=== PATIENT | male | born 1955 | race Caucasian/White ===

== ENCOUNTER 2020-10-16 15:42 | Inpatient (IN) | payer MEDICARE, OTHER ==
[~2020-10-16] VITALS: Ht 221 cm; Wt 129.7 kg
[~2020-10-16 15:42] MED LIST: METO10TA81 PO; PANT40TA3 PO
[2020-10-16 16:16] LABS: BASO # 0.1 x10^3/uL (0.0-0.2); BASO % 2 % (0-3); EOS # 0.2 x10^3/uL (0.0-0.7); EOS % 2 % (0-3); HEMATOCRIT 44.5 % (39.0-53.0); LYMPH # 1.5 x10^3/uL (1.0-4.8); LYMPH % 18 % (24-48); MEAN CORPUSCULAR HEMOGLOBIN 33 pg (25-35); MEAN CORPUSCULAR HGB CONC 34 g/dL (31-37); MEAN CORPUSCULAR VOLUME 99 fL (79-100); MONO # 0.5 x10^3/uL (0.0-1.1); MONO % 7 % (0-9); NEUT # 5.8 x10^3uL (1.8-7.7); NEUT % 72 % (31-73); PLATELET COUNT 200 x10^3/uL (140-400); RED BLOOD COUNT 4.49 x10^6/uL (4.30-5.70); RED CELL DISTRIBUTION WIDTH 13.2 % (11.5-14.5); WHITE BLOOD COUNT 8.1 x10^3/uL (4.0-11.0)
[2020-10-16 16:25] LABS: ALBUMIN 3.3 g/dL (3.4-5.0); ALBUMIN/GLOBULIN RATIO 1.1 (1.0-1.7); CALCIUM 8.9 mg/dL (8.5-10.1); POTASSIUM 4.1 mmol/L (3.5-5.1); TOTAL BILIRUBIN 1.2 mg/dL (0.2-1.0); TOTAL PROTEIN 6.4 g/dL (6.4-8.2)
[2020-10-16 16:28] LABS: BILIRUBIN,URINE NEG (NEG); CLARITY,URINE CLOUDY; COLOR,URINE YELLOW; GLUCOSE,URINE NEG (NEG); NITRITE,URINE POS (NEG)
[2020-10-16 16:34] LABS: BACTERIA,URINE MANY /HPF (0-FEW); WBC,URINE TNTC /HPF (0-4)
[2020-10-16 16:35] LABS: SQUAMOUS EPITHELIAL CELL,UR MOD /LPF
[2020-10-16] MEDS ORDERED: cefTRIAXone SODIUM 1 GM VIAL ONE (17:05)
[2020-10-16] MEDS ORDERED: CEPH500T PO (17:12)
--- NOTE | 2020-10-16 17:16 | PHYS DOC ---
Past History Past Medical History: Anemia, Anxiety, Depression, GERD, GI Bleed, High Cholesterol, Hypothyroid, Other Additional Past Medical Histor: barretts esophagus Past Surgical History: Tonsillectomy, Other Additional Past Surgical Histo: toe amputation Alcohol Use: None Drug Use: None Adult General Chief Complaint Chief Complaint: MEDICAL CLEARANCE [facility] HPI Patient is a 65-year-old male who presents to the emergency room with altered mental status. Patient has been living in a nursing facility for the last year. According to report he has had increased altered mental status with combativeness. They have had a hard time getting him to shower, eat, care for h imself. They called the behavioral health unit here at [facility] who is willing to accept the patient for behavioral health assessment. Patient is here for medical clearance. He has no complaints. He does not know why he is here. Review of Systems Review of Systems Complete ROS is negative unless otherwise documented in HPI Current Medications Current Medications Current Medications Medications (Trade) Dose Ordered Sig/Lizette Start Time Stop Time Status Last Admin Dose Admin Ceftriaxone Sodium 1 gm/ Sodium Chloride 50 ml @ 100 mls/hr 1X ONCE 10/16/20 17:00 10/16/20 17:29 Ceftriaxone Sodium (Rocephin) 1 gm STK-MED ONCE 10/16/20 17:05 10/16/20 17:05 DC Allergies Allergies Allergies Coded Allergies Type Severity Reaction Last Updated Verified lactose Allergy Unknown Diarrhea 10/16/20 Yes Physical Exam Physical Exam General: Awake, alert, NAD. Well Nourished, well hydrated. Cooperative HEENT: Atraumatic, EOMI, PERRL, airway patent, moist oral mucosa Neck: Supple, trachea midline Respiratory: CTA bilaterally, normal effort, no wheezing/crackles CV: RRR, no murmur, cap refill <2 GI: Soft, nondistended, nontender, no masses MSK: No obvious deformities Skin: Warm, dry, intact Neuro: A&O x3, speech NL, sensory and motor grossly intact, no focal deficits, confused Psych: Normal affect, normal mood, not suicidal or homicidal Current Patient Data Vital Signs Vital Signs Date Time Temp Pulse Resp B/P (MAP) Pulse Ox O2 Delivery O2 Flow Rate FiO2 10/16/20 15:54 97.8 71 16 147/78 (101) 97 Room Air Lab Results Laboratory Tests Test 10/16/20 15:55 10/16/20 16:04 White Blood Count 8.1 x10^3/uL (4.0-11.0) Red Blood Count 4.49 x10^6/uL (4.30-5.70) Hemoglobin 15.0 g/dL (13.0-17.5) Hematocrit 44.5 % (39.0-53.0) Mean Corpuscular Volume 99 fL (79-100) Mean Corpuscular Hemoglobin 33 pg (25-35) Mean Corpuscular Hemoglobin Concent 34 g/dL (31-37) Red Cell Distribution Width 13.2 % (11.5-14.5) Platelet Count 200 x10^3/uL (140-400) Neutrophils (%) (Auto) 72 % (31-73) Lymphocytes (%) (Auto) 18 % (24-48) L Monocytes (%) (Auto) 7 % (0-9) Eosinophils (%) (Auto) 2 % (0-3) Basophils (%) (Auto) 2 % (0-3) Neutrophils # (Auto) 5.8 x10^3uL (1.8-7.7) Lymphocytes # (Auto) 1.5 x10^3/uL (1.0-4.8) Monocytes # (Auto) 0.5 x10^3/uL (0.0-1.1) Eosinophils # (Auto) 0.2 x10^3/uL (0.0-0.7) Basophils # (Auto) 0.1 x10^3/uL (0.0-0.2) Sodium Level 144 mmol/L (136-145) Potassium Level 4.1 mmol/L (3.5-5.1) Chloride Level 107 mmol/L (98-107) Carbon Dioxide Level 28 mmol/L (21-32) Anion Gap 9 (6-14) Blood Urea Nitrogen 21 mg/dL (8-26) Creatinine 1.0 mg/dL (0.7-1.3) Estimated GFR (Cockcroft-Gault) 75.0 BUN/Creatinine Ratio 21 (6-20) H Glucose Level 84 mg/dL (70-99) Calcium Level 8.9 mg/dL (8.5-10.1) Total Bilirubin 1.2 mg/dL (0.2-1.0) H Aspartate Amino Transferase (AST) 14 U/L (15-37) L Alanine Aminotransferase (ALT) 17 U/L (16-63) Alkaline Phosphatase 115 U/L (46-116) Total Protein 6.4 g/dL (6.4-8.2) Albumin 3.3 g/dL (3.4-5.0) L Albumin/Globulin Ratio 1.1 (1.0-1.7) Urine Collection Type Unknown Urine Color Yellow Urine Clarity Cloudy Urine pH 7.0 Urine Specific [place] 1.025 Urine Protein 100 mg/dl (NEG-TRACE) Urine Glucose (UA) Neg mg/dL (NEG) Urine Ketones (Stick) >=160 mg/dL (NEG) Urine Blood Large (NEG) Urine Nitrite Pos (NEG) Urine Bilirubin Neg (NEG) Urine Urobilinogen Dipstick 2.0 mg/dL (0.2 mg/dL) Urine Leukocyte Esterase Small (NEG) Urine RBC 11-20 /HPF (0-2) Urine WBC Tntc /HPF (0-4) Urine Squamous Epithelial Cells Mod /LPF Urine Bacteria Many /HPF (0-FEW) Urine Mucus Slight /LPF EKG EKG [] Radiology/Procedures Radiology/Procedures [] Heart Score C/O Chest Pain: N/A Risk Factors: Risk Factors: DM, Current or recent (<one month) smoker, HTN, HLP, family history of CAD, obesity. Risk Scores: Risk Factors: DM, Current or recent (<one month) smoker, HTN, HLP, family history of CAD, obesity. Course & Med Decision Making Course & Med Decision Making Pertinent Labs and Imaging studies reviewed. (See chart for details) Patient is 65-year-old male who presents to the emergency room for medical clearance to go to [facility]. Patient has no complaints. Medical clearing labs were ordered and patient does have a significant UTI. He was given Rocephin here in the emergency room and will need to be placed on Keflex. Patient will be discharged to the [facility] unit. He is medically clear at this time. He does not have any signs of sepsis at this time. Dragon Disclaimer Dragon Disclaimer This electronic medical record was generated, in whole or in part, using a voice recognition dictation system. Departure Departure: Impression: Primary Impression: Altered mental status Additional Impression: UTI (urinary tract infection) Disposition: [address] [place] [address] Condition: STABLE Referrals: PCP,NO (PCP) Scripts Cephalexin (CEPHALEXIN) 500 Mg Tablet 1 TAB PO BID for UTI, #20 TAB Prov: EDEN MEDLEY MD 10/16/20 Problem Qualifiers EDEN MEDLEY MD Oct 16, 2020 17:16
[2020-10-16] MEDS ORDERED: PANT40TA6 PO (17:54)
[2020-10-16] MEDS ORDERED: BUSP10TA PO (17:54)
[2020-10-16] MEDS ORDERED: SERT100T PO (17:54)
[2020-10-16] MEDS ORDERED: CALC200T3 PO (17:54)
[2020-10-16] MEDS ORDERED: DIVA250T4 PO (17:54)
[2020-10-16] MEDS ORDERED: RISP1TAB88 PO ×2 (17:54)
[2020-10-16] MEDS ORDERED: [UNRECOGNIZED DRUG - CODE] PO (17:54)
[2020-10-16] MEDS ORDERED: LOPE2TAB27 PO (17:54)
[2020-10-16] MEDS ORDERED: DICL100G28 TP (17:54)
[2020-10-16] MEDS ORDERED: MAGN400T5 PO (17:54)
[2020-10-16] MEDS ORDERED: ACET325T21 PO (17:54)
--- NOTE | 2020-10-16 18:00 | NUR ---
Admission Note with Justification for Admission to [facility] Patient admitted to [facility] for protective oversight for emergency stabilization of acute psychiatric crisis. Pt admitted from: SNF Mode of arrival: EMS Accompanied By: [facility] Staff Precipitating behaviors that initiated intake and admission: throwing self on floor, lacks motivation, physically & verbally aggressive towards staff, refuses cares & lays in urine & feces, agitated, threw walker at staff, yells at peers Description of failure of out patient attempts at stabilization in previous setting list behavior and medication trials: med changes, redirection, counseling, UA Behaviors and assessment findings upon admission: Pt pleasant and cooperative with assessment. He is A&Ox3. He denies ever roopa Plan: Admit for protective oversight for adjustment and stabilization of medications, behaviors and mood. Intense treatment regimen including groups, medication adjustments, therapy, consistent regimen for ADL's, self care, and sleep hygiene. Daily monitoring by Inpatient staff, Psychiatry, and Medical Physician. Addendum: 10/16/20 at 1839 by CESAR SMALL RN He denies ever doing any of the reported behaviors that prompted admission. Pt is frustrated about having to stay here overnight and is questioning if he will be able to leave tomorrow. He c/o pain in his right knee from a fall he had "3 days ago". Pt has a couple open sores on his R hip and has many bruises in various healing stages all over his body. Pt was left to eat his supper in his room and is currently resting quietly in bed. Will continue to monitor.
[2020-10-16 18:20] VITALS: BP 137/75
[2020-10-16] MEDS ORDERED: CALCIUM CARBONATE 500 MG TAB.CHEW PO PRN (19:00)
[2020-10-16] MEDS ORDERED: LOPERAMIDE 2 MG CAPSULE PO PRN (19:00)
[2020-10-16] MEDS ORDERED: ACETAMINOPHEN 325 MG TABLET PO PRN (19:45)
[2020-10-16] MEDS ORDERED: MAGNESIUM HYDROXIDE 2,400 MG/30 ML ORAL.SUSP. PO PRN (19:45)
[2020-10-16] MEDS ORDERED: METHYL SALICYLATE/MENTHOL TOPICAL OINTMENT 57GM TUBE. TP PRN (19:45)
[2020-10-16 20:41] LABS: MAGNESIUM 2.2 mg/dL (1.8-2.4)
--- NOTE | 2020-10-16 20:46 | EKG ---
[address] [address] Test Date: 2020-10-16 Test Time: 16:12:20 Pat Name: RAYO TERESA Department: Room: [address] [place] [address] Gender: M Wood Furniture Assembler: LORETTA : 1955 Requested By: EDEN MEDLEY Order Number: [id number] Reading MD: Norman Cerrato Measurements Intervals [place] Rate: 65 P: 12 W[place]: 170 QRS: -44 QRSD: 102 T: 66 QT: 416 QTc: 433 Interpretive Statements SINUS RHYTHM ABNORMAL LEFT AXIS DEVIATION LEFT ANTERIOR FASCICULAR BLOCK ABNORMAL ECG Electronically Signed On 10-24-2020 13:03:16 CDT by Norman Cerrato
[2020-10-16 20:50] LABS: VAL ACID 74 mcg/mL (50-100)
[2020-10-16] MEDS: busPIRone 10 MG TABLET. PO SCH (20:54)
[2020-10-16] MEDS: PANTOPRAZOLE 40 MG TABLET. PO SCH (20:55)
[2020-10-16] MEDS: CEPHALEXIN 250 MG CAPSULE PO SCH (20:55)
[2020-10-16] MEDS: risperiDONE 1 MG TABLET. PO SCH (20:55)
[2020-10-16] MEDS: DIVALPROEX SODIUM 250 MG TABLET.DR. PO SCH (20:55)
[2020-10-16] MEDS: DICLOFENAC SODIUM 1% TOPICAL GEL 100GM TUBE. TP SCH (20:55)
[2020-10-16] MEDS: METOCLOPRAMIDE 10 MG TABLET PO SCH (20:55)
--- NOTE | 2020-10-16 22:05 | PDOC ---
Exam Note: Dandy Note: Please also refer to the separate dictated note~for this date of service dictated separately.~Patient seen individually. Discussed the patient with Nursing staff reviewed the chart.~Reviewed interim history and current functioning. Reviewed vital signs,~Labs/ Radiology~and current medications noted below. Continue current treatment with the changes noted in the dictated addendum note Assessment: Vital Signs/I&O: Vital Signs Date Time Temp Pulse Resp B/P (MAP) Pulse Ox O2 Delivery O2 Flow Rate FiO2 10/16/20 18:20 97.9 73 18 137/75 (95) 97 10/16/20 15:54 Room Air Labs: Laboratory Tests Test 10/16/20 15:55 10/16/20 16:04 10/16/20 20:07 White Blood Count 8.1 x10^3/uL (4.0-11.0) Red Blood Count 4.49 x10^6/uL (4.30-5.70) Hemoglobin 15.0 g/dL (13.0-17.5) Hematocrit 44.5 % (39.0-53.0) Mean Corpuscular Volume 99 fL (79-100) Mean Corpuscular Hemoglobin 33 pg (25-35) Mean Corpuscular Hemoglobin Concent 34 g/dL (31-37) Red Cell Distribution Width 13.2 % (11.5-14.5) Platelet Count 200 x10^3/uL (140-400) Neutrophils (%) (Auto) 72 % (31-73) Lymphocytes (%) (Auto) 18 % (24-48) L Monocytes (%) (Auto) 7 % (0-9) Eosinophils (%) (Auto) 2 % (0-3) Basophils (%) (Auto) 2 % (0-3) Neutrophils # (Auto) 5.8 x10^3uL (1.8-7.7) Lymphocytes # (Auto) 1.5 x10^3/uL (1.0-4.8) Monocytes # (Auto) 0.5 x10^3/uL (0.0-1.1) Eosinophils # (Auto) 0.2 x10^3/uL (0.0-0.7) Basophils # (Auto) 0.1 x10^3/uL (0.0-0.2) Sodium Level 144 mmol/L (136-145) Potassium Level 4.1 mmol/L (3.5-5.1) Chloride Level 107 mmol/L (98-107) Carbon Dioxide Level 28 mmol/L (21-32) Anion Gap 9 (6-14) Blood Urea Nitrogen 21 mg/dL (8-26) Creatinine 1.0 mg/dL (0.7-1.3) Estimated GFR (Cockcroft-Gault) 75.0 BUN/Creatinine Ratio 21 (6-20) H Glucose Level 84 mg/dL (70-99) Calcium Level 8.9 mg/dL (8.5-10.1) Total Bilirubin 1.2 mg/dL (0.2-1.0) H Aspartate Amino Transferase (AST) 14 U/L (15-37) L Alanine Aminotransferase (ALT) 17 U/L (16-63) Alkaline Phosphatase 115 U/L (46-116) Total Protein 6.4 g/dL (6.4-8.2) Albumin 3.3 g/dL (3.4-5.0) L Albumin/Globulin Ratio 1.1 (1.0-1.7) Urine Collection Type Unknown Urine Color Yellow Urine Clarity Cloudy Urine pH 7.0 Urine Specific [place] 1.025 Urine Protein 100 mg/dl (NEG-TRACE) Urine Glucose (UA) Neg mg/dL (NEG) Urine Ketones (Stick) >=160 mg/dL (NEG) Urine Blood Large (NEG) Urine Nitrite Pos (NEG) Urine Bilirubin Neg (NEG) Urine Urobilinogen Dipstick 2.0 mg/dL (0.2 mg/dL) Urine Leukocyte Esterase Small (NEG) Urine RBC 11-20 /HPF (0-2) Urine WBC Tntc /HPF (0-4) Urine Squamous Epithelial Cells Mod /LPF Urine Bacteria Many /HPF (0-FEW) Urine Mucus Slight /LPF D-Dimer (Tammie) 0.81 mg/L (0.00-0.50) H Magnesium Level 2.2 mg/dL (1.8-2.4) Valproic Acid Level 74 mcg/mL (50-100) Valproic Acid Last Dose Date 10/16/20 Valproic Acid Last Dose Time 1200 Current Medications: Meds: Current Medications Medications (Trade) Dose Ordered Sig/Lizette Route PRN Reason Start Time Stop Time Status Last Admin Dose Admin Ceftriaxone Sodium 1 gm/ Sodium Chloride 50 ml @ 100 mls/hr 1X ONCE IV 10/16/20 17:00 10/16/20 17:29 DC 10/16/20 17:00 Buspirone HCl (Buspar) 10 mg TID PO 10/16/20 21:00 10/16/20 20:54 Divalproex Sodium (Depakote) 250 mg TID PO 10/16/20 21:00 10/16/20 20:55 Metoclopramide HCl (Reglan) 10 mg QIDACHS PO 10/16/20 21:00 10/16/20 20:55 Pantoprazole Sodium (Protonix) 40 mg QHS PO 10/16/20 21:00 10/16/20 20:55 Risperidone (RisperDAL) 1 mg QHS PO 10/16/20 21:00 10/16/20 20:55 Cephalexin HCl (Keflex) 500 mg BID PO 10/16/20 21:00 10/26/20 09:01 10/16/20 20:55 I have reviewed the current psychotropics carefully including drug interactions. Risk benefit ratio favors no change other than as noted in my dictated progress note. Diagnosis: Problems: (1) Schizoaffective disorder, chronic condition with acute exacerbation VICTORINA BAR MD Oct 16, 2020 22:05
--- NOTE | 2020-10-16 23:18 | NUR ---
Pt withdrawn to his room, lying in bed when approached. Pt calm with a flat affect, answering questions appropriately. Pt denies behaviors that precipitated admission stating, "that didn't happen". Pt cooperative with assessment/cares and compliant with medications administered whole. No agitation or aggression noted thus far this shift.
[2020-10-17 05:45] VITALS: BP 130/67
[2020-10-17] MEDS ORDERED: PANTOPRAZOLE 40 MG TABLET. PO SCH (09:00)
[2020-10-17] MEDS: CEPHALEXIN 250 MG CAPSULE PO SCH ×2 (09:10→20:36)
[2020-10-17] MEDS: DIVALPROEX SODIUM 250 MG TABLET.DR. PO SCH ×3 (09:10→20:36)
[2020-10-17] MEDS: METOCLOPRAMIDE 10 MG TABLET PO SCH ×4 (09:10→20:36)
[2020-10-17] MEDS: busPIRone 10 MG TABLET. PO SCH ×3 (09:11→20:36)
[2020-10-17] MEDS: risperiDONE 1 MG TABLET. PO SCH ×2 (09:11→20:36)
[2020-10-17] MEDS: SERTRALINE 100 MG TABLET. PO SCH (09:11)
[2020-10-17] MEDS: LACTASE 3,000 UNIT TABLET PO SCH ×3 (09:11→17:31)
[2020-10-17] MEDS: DICLOFENAC SODIUM 1% TOPICAL GEL 100GM TUBE. TP SCH ×2 (09:11→20:39)
--- NOTE | 2020-10-17 09:59 | NUR ---
Pt has been present and visible on the unit. He is compliant with medications taken whole and is cooperative with assessment. After breakfast he immediately retired to bed. Pt is able to be appropriate with his interactions with others and has demonstrated such appropriateness. During assessment pt displayed moments of boundary crossing and intrusiveness; stating that this nurse "looks good" today and asking this nurse if I'm . Pt briefly spoke about a female staff member named "Julianna" and asked this nurse if I knew who she was, I replied that I did not. Pt denies the circumstances regarding his admission and is adamant that they "never happened." He reports 8/10 pain in the R knee, scheduled muscle rub cream applied. Plan of care continues, will pass to next shift. .
[2020-10-17] MEDS: MAGNESIUM OXIDE 400 MG TABLET PO SCH (12:00)
[2020-10-17 14:12] LABS: THYROXINE 7.8 ug/dL (4.5-12.0)
[2020-10-17 16:09] VITALS: BP 134/76
--- NOTE | 2020-10-17 17:23 | RAD ---
Right knee 3 views. HISTORY: Fall with pain 3 views were taken of the right knee. A fracture is not identified. There is a joint effusion. IMPRESSION: 1. No acute fracture noted in the right knee. 2. Small joint effusion. Electronically signed by: Amadeo Craft MD (10/17/2020 5:21 PM) [id number]
--- NOTE | 2020-10-17 17:25 | RAD ---
Sacrum and coccyx HISTORY: Pain after a fall 3 views were taken of the sacrum and coccyx. Sacrum appears intact. Coccyx is in normal alignment on the lateral view. Definite sacral fracture not identified. IMPRESSION: 1. No fracture noted in the sacrum or coccyx. Electronically signed by: Amadeo Craft MD (10/17/2020 5:22 PM) [id number]
[2020-10-17 17:52] LABS: THYROID STIM HORMONE (TSH) 2.237 uIU/mL (0.358-3.740)
[2020-10-17] MEDS: LACTOBACILLUS RHAMNOSUS GG 1 CAPSULE. PO SCH (20:36)
[2020-10-17] MEDS: PANTOPRAZOLE 40 MG TABLET. PO SCH (20:36)
--- NOTE | 2020-10-17 22:36 | NUR ---
Pt withdrawn to room, lying in bed when approached. Pt calm, interactive, and appropriate during encounter. Pt cooperative with assessment and compliant with medications administered whole. No verbal or physical aggression noted thus far this shift.
--- NOTE | 2020-10-17 22:41 | PDOC ---
Exam Note: Dandy Note: Please also refer to the separate dictated note~for this date of service dictated separately.~Patient seen individually. Discussed the patient with Nursing staff reviewed the chart.~Reviewed interim history and current functioning. Reviewed vital signs,~Labs/ Radiology~and current medications noted below. Continue current treatment with the changes noted in the dictated addendum note Assessment: Vital Signs/I&O: Vital Signs Date Time Temp Pulse Resp B/P (MAP) Pulse Ox O2 Delivery O2 Flow Rate FiO2 10/17/20 16:09 97.3 83 18 134/76 (95) 97 Room Air I & O 10/16/20 10/16/20 10/17/20 15:00 23:00 07:00 Intake Total 240 ml Balance 240 ml Current Medications: Meds: Current Medications Medications (Trade) Dose Ordered Sig/Lizette Route PRN Reason Start Time Stop Time Status Last Admin Dose Admin Ceftriaxone Sodium 1 gm/ Sodium Chloride 50 ml @ 100 mls/hr 1X ONCE IV 10/16/20 17:00 10/16/20 17:29 DC 10/16/20 17:00 Ceftriaxone Sodium (Rocephin) 1 gm STK-MED ONCE .ROUTE 10/16/20 17:05 10/16/20 17:05 DC Acetaminophen (Tylenol) 650 mg PRN Q4HRS PRN PO MILD PAIN / TEMP > 100.3'F 10/16/20 19:00 Buspirone HCl (Buspar) 10 mg TID PO 10/16/20 21:00 10/17/20 20:36 Calcium Carbonate/ Glycine (Tums) 500 mg PRN Q8HRS PRN PO DYSPEPSIA, 1ST CHOICE 10/16/20 19:00 Diclofenac Sodium (Voltaren) 1 stan BID TP 10/16/20 21:00 10/17/20 20:39 Divalproex Sodium (Depakote) 250 mg TID PO 10/16/20 21:00 10/17/20 20:36 Lactase (Lactaid) 3,000 unit TIDBFRMEAL PO 10/17/20 07:30 10/17/20 17:31 Magnesium Oxide (Magnesium Oxide) 400 mg NOON PO 10/17/20 12:00 10/17/20 12:00 Metoclopramide HCl (Reglan) 10 mg QIDACHS PO 10/16/20 21:00 10/17/20 20:36 Pantoprazole Sodium (Protonix) 40 mg QHS PO 10/16/20 21:00 10/17/20 20:36 Pantoprazole Sodium (Protonix) 40 mg DAILY PO 10/17/20 09:00 UNV Risperidone (RisperDAL) 1 mg QHS PO 10/16/20 21:00 10/17/20 20:36 Risperidone (RisperDAL) 1.5 mg DAILY PO 10/17/20 09:00 10/17/20 09:11 Sertraline HCl (Zoloft) 200 mg DAILY PO 10/17/20 09:00 10/17/20 09:11 Cephalexin HCl (Keflex) 500 mg BID PO 10/16/20 21:00 10/26/20 09:01 10/17/20 20:36 Loperamide HCl (Imodium) 2 mg PRN Q8HRS PRN PO DIARRHEA 10/16/20 19:00 Acetaminophen (Tylenol) 650 mg PRN Q6HRS PRN PO MILD PAIN / TEMP > 100.3'F 10/16/20 19:45 UNV Multi-Ingredient Ointment (Analgesic [place]) 1 stan PRN QID PRN TP MUSCLE PAIN 10/16/20 19:45 Al Hydroxide/Mg Hydroxide (Mylanta Plus Xs) 15 ml PRN AFTMEALHC PRN PO DYSPEPSIA, 2ND CHOICE 10/16/20 19:45 Magnesium Hydroxide (Milk Of Magnesia) 2,400 mg PRN QHS PRN PO CONSTIPATION 10/16/20 19:45 Lactobacillus Rhamnosus (Culturelle) 1 cap BID PO 10/17/20 21:00 10/17/20 20:36 Current Medications Medications (Trade) Dose Ordered Sig/Lizette Route PRN Reason Start Time Stop Time Status Last Admin Dose Admin Lactase (Lactaid) 3,000 unit TIDBFRMEAL PO 10/17/20 07:30 10/17/20 17:31 Magnesium Oxide (Magnesium Oxide) 400 mg NOON PO 10/17/20 12:00 10/17/20 12:00 Risperidone (RisperDAL) 1.5 mg DAILY PO 10/17/20 09:00 10/17/20 09:11 Sertraline HCl (Zoloft) 200 mg DAILY PO 10/17/20 09:00 10/17/20 09:11 Lactobacillus Rhamnosus (Culturelle) 1 cap BID PO 10/17/20 21:00 10/17/20 20:36 I have reviewed the current psychotropics carefully including drug interactions. Risk benefit ratio favors no change other than as noted in my dictated progress note. Diagnosis: Problems: (1) Schizoaffective disorder, chronic condition with acute exacerbation VICTORINA BAR MD Oct 17, 2020 22:41
[2020-10-18 00:08] LABS: HEMOGLOBIN A1C 4.9 % (4.8-5.6)
[2020-10-18 06:09] VITALS: BP 122/64
--- NOTE | 2020-10-18 07:00 | NUR ---
Wound/Ostomy Care Wound Type/Assessment: wound consult for right hip wound, pt has stage II PU to right hip with pink/red periwound. Pt also has unstageable PU to plantar aspect of left 2nd toe. Photo found in chart of dorsal toe showing redness and swelling but wound not shown in photo. Pictured, measured and dressed wound. Treatment Recommendations/Plan: xeroform and foam to right hip, recommend to change every 3 days and PRN. Left 2nd toe- iodoflex and gauze, change every other day and PRN. Additional dressings left in pt photo chart. Education provided: PU prevention, recommend to stay off right hip, pt will need reinforcement of teaching due to mental status. Offloading surface/device: TQ2H, limit walking on toe Recommended Referrals/Tests: recommend xray of left 2nd toe and arterial study of left leg Discharge Recommendations for dressings: continue as above noted
--- NOTE | 2020-10-18 08:00 | NUR ---
Voice message left with [facility], requesting an update about records request from 10/16/20.
[2020-10-18] MEDS: DIVALPROEX SODIUM 250 MG TABLET.DR. PO SCH ×3 (08:42→21:42)
[2020-10-18] MEDS: LACTASE 3,000 UNIT TABLET PO SCH ×3 (08:42→17:09)
[2020-10-18] MEDS: risperiDONE 1 MG TABLET. PO SCH ×2 (08:43→21:41)
[2020-10-18] MEDS: SERTRALINE 100 MG TABLET. PO SCH (08:43)
[2020-10-18] MEDS: CEPHALEXIN 250 MG CAPSULE PO SCH ×2 (08:43→21:41)
[2020-10-18] MEDS: LACTOBACILLUS RHAMNOSUS GG 1 CAPSULE. PO SCH ×2 (08:43→21:42)
[2020-10-18] MEDS: busPIRone 10 MG TABLET. PO SCH ×3 (08:43→21:41)
[2020-10-18] MEDS: METOCLOPRAMIDE 10 MG TABLET PO SCH ×4 (08:43→21:42)
[2020-10-18] MEDS: DICLOFENAC SODIUM 1% TOPICAL GEL 100GM TUBE. TP SCH ×2 (08:44→21:42)
--- NOTE | 2020-10-18 09:37 | HP ---
ADMIT DATE: 10/17/2020 PSYCHIATRIC ADMISSION HISTORY/EVALUATION This is a late entry date of service 10/17/2020 covers elements not covered in my initial note 10/17/2020. The patient was seen on telehealth visit for this evaluation on 10/17/2020 per COVID protocol options. Previously discussed with Trista Coe, palliative care coordinator and nursing staff and discussed with ROHAN Carbajal on 10/17/2020, reviewed current and past records. IDENTIFYING DATA: The patient is a 65-year-old male referred to us from [facility] on account of an acute exacerbation of his schizoaffective disorder, bipolar type. Reportedly, patient has been throwing himself on the floor, physically and verbally aggressive towards staff, refusing cares. He has been lying in urine and feces. He has been agitated, threw his walker at the staff, yelling at peers, withdrawn, angry, paranoid, aggressive smearing feces. The patient denies minimizes all of this, states he has no problems whatsoever. CHIEF COMPLAINT: "There is nothing wrong with me. I've no psychiatric diagnosis. Never." HISTORY OF PRESENT ILLNESS: Reportedly, patient has a history of schizoaffective disorder, bipolar type. He has been residing at the above facility, recently getting more psychotic, paranoid, and agitated as above and unmanageable at the facility. Behaviors have been deemed dangerous, has failed outpatient psychiatric interventions resulting in this referral. He does have a history of mood swings, but generally cognitively he has been intact. PAST PSYCHIATRIC HISTORY: As above. The patient has failed recent inpatient psychiatric hospitalization at [facility] and we will request those records. MEDICAL HISTORY: Hypothyroidism, knee pain, anemia, history of GI bleed, Garza's esophagus with dysplasia, GERD, lactose intolerance, muscular atrophy, peripheral vascular disease, history of "other paraphilia," history of sexual dysfunction, status post pneumonia, history of acute cholecystitis, hyperlipidemia, polycythemia, delayed gastric emptying, transaminitis. ACCU-CHEKS: Not applicable. CODE STATUS: Full code. ALLERGIES: No drug allergies, but he has LACTOSE INTOLERANCE. DIET: No diary, but otherwise regular. UA 10/16/2020 was positive, started on Keflex in the Emergency Department prior to this admission. CURRENT PSYCHOTROPICS: Depakote ER 250 mg t.i.d., Risperdal 1.5 mg daily and 1 mg at bedtime, Zoloft 200 mg a day, BuSpar 10 mg t.i.d., valproic acid level 629 and 74 therapeutic. FAMILY HISTORY: Noncontributory. SOCIAL HISTORY: No history of alcohol, drug abuse, physical, sexual or elder abuse, but there is questionable history of being a perpetrator and history of paraphilia. We will obtain further information during this hospitalization. ASSETS: Supportive living at the [facility]. REACTION TO HOSPITALIZATION: The patient accepting reluctantly. REVIEW OF SYSTEMS: No CV, , pulmonary, eye, ENT system symptoms on review. MENTAL STATUS EXAM: The patient is reasonably oriented. Speech coherent, rapid. He is quite aggressive, paranoid, suspicious, easily agitated, stating he had no psychiatric reasons or diagnosis to be here. Attention span short. Language function intact. No active suicidal or homicidal ideation. Intellect average. Insight limited. Judgment marginal. LABORATORY DATA: Reviewed. IMPRESSION: Schizoaffective disorder, bipolar type, mixed with psychotic features; anxiety disorder, unspecified; impulse control disorder, unspecified; urinary tract infection, rest as above. PLAN: Admit to Geropsychiatry Unit at [facility]. I will see the patient individually from a psychiatric standpoint, medical followup, Dr. Angel/Dr. Gamez. Continue current psychotropics. Treat the UTI. Consider increasing Risperdal, reducing the Zoloft and using Wellbutrin as an alternate antidepressant, specifically given his schizoaffective disorder, bipolar type diagnosis. We will make further determinations post baseline assessment in resolution of UTI. ESTIMATED LENGTH OF STAY: 10-12 days. DISPOSITION: Plans back to [facility] when stable. MARIBELL/PHYLLIS DR: Shannan TID: [id number]
--- NOTE | 2020-10-18 11:00 | CONS ---
DATE OF CONSULTATION: 10/17/2020 REASON FOR CONSULTATION: Medical management. HISTORY OF PRESENT ILLNESS: The patient is a 65-year-old male patient, [facility] on account of throwing himself on the floor, physically and verbally aggressive towards staff, refuses cares, lying in urine and feces, agitated to ____ staff, yelling at peers, lacks motivation, smearing feces, all this in a background of schizoaffective disorder with acute exacerbation. PAST MEDICAL HISTORY: Significant for hypothyroidism, knee pain, anemia, GI bleed, Garza's esophagus, gastroesophageal reflux disease, lactose intolerance, muscle wasting and atrophy, peripheral vascular disease, paraphilia, sexual dysfunction, pneumonia, hyperlipidemia, polycythemia, delayed gastric emptying and transaminitis. PAST SURGICAL HISTORY: Significant for cholecystectomy. ALLERGIES: HE IS ALLERGIC TO DAIRY, LACTOSE INTOLERANCE, BUT NO KNOWN DRUG ALLERGIES. MEDICATIONS: He is currently on following medications: He is currently on lactobacillus rhamnosus 1 capsule twice a day, magnesium oxide 400 mg once a day, sertraline 200 mg once a day, risperidone 1.5 mg daily, Lactase 3000 units 3 times a day with meals, cephalexin 500 mg twice a day, risperidone 1 mg at bedtime, Protonix 40 mg at bedtime, metoclopramide 10 mg 4 times a day before meals and bedtime, divalproex sodium 250 mg 3 times a day, diclofenac sodium 1 application twice a day topically, buspirone 10 mg 3 times a day, magnesium hydroxide for milk of magnesia 30 mL p.o. daily p.r.n. for constipation, Mylanta 15 mL after meals and as needed, loperamide 2 mg every 8 hours as needed, calcium carbonate, lysine 500 mg every 8 hours, acetaminophen 650 mg every 4 hours as needed. FAMILY HISTORY: Noncontributory. SOCIAL HISTORY: On questioning him today, his main complaint is pain in his right knee joint. It is in a fixed flexion contracture. He apparently fell about 3 days ago. He also complaining of pain in his tailbone. PHYSICAL EXAMINATION: GENERAL: When I examined him, he looked well and was clearly in no apparent respiratory distress. There was no pallor, jaundice, cyanosis, or thyromegaly. No jugular venous distention. No lower limb edema. VITAL SIGNS: His heart rate was 83, blood pressure is 134/76, temperature was 97.3, respiratory rate was 18 and oxygen saturation was 97%. HEAD, EYES, EARS, NOSE, AND THROAT: Showed normocephalic and atraumatic. NECK: Supple. HEART: Showed normal first and second heart sounds. No gallop or murmur. CHEST: Clear to auscultation. No crepitation or rhonchi. ABDOMEN: Distended, soft, nontender. NEUROLOGIC: He is awake, alert, responding appropriately, appears intact. He moves extremities without difficulty, ambulates without assist, but is mostly wheelchair bound. LABORATORY DATA: This morning showed a white cell count of 8100, hemoglobin 15, hematocrit 44, MCV 99 and platelet count 200,000 with a manual differential showed 72% polymorphs, 18% lymphocytes, 7% monocytes. His D-dimer was 0.81 mg. His chemistry showed a serum sodium 144, potassium 4.1, chloride 107, bicarbonate 28, anion gap of 9, BUN 21, creatinine 1, estimated GFR was 75 mL per minute. His glucose was 84, calcium was 8.9, magnesium 2.2. Total bilirubin slightly elevated; however, AST, ALT, alkaline phosphatase were normal. Total protein 6.4, albumin 3.3. His total T4 and total T3 are all within normal range. Urinalysis showed that he has too numerous to count wbc's, was positive for nitrite. There was large amount of leukocyte esterase. The urine was cloudy with small amount of protein, negative for glucose, large amount of ketones, large amount of blood. Toxic screen showed that the valproic acid level was 74 mcg per mL, which is well within therapeutic range of 15 to 100. ASSESSMENT: In summary, this is a 65-year-old male patient, [facility], who [facility] on account of throwing self the floor, physically and verbally aggressive towards staff, refuses cares, lying in his urine and feces, agitated to ____ staff, yelling at peers, lacks motivation, smearing feces, his main complaint is pain in his right knee joint that is tender to touch, but there is no evidence of redness or swelling, it is in a fixed flexion contracture. PLAN: My plan is to obviously continue with oral Keflex for his UTI, and await the result of the culture and sensitivity and arrange for an x-ray of the right knee joint and if there is no fracture and is receptive to steroid injection, I will arrange it for tomorrow. Thank you, Dr. Saldana, for allowing me to participate in the care of this patient. RICHARD/VALENCIA/ARELY DR: RICHARD/marquita TID: [id number]
--- NOTE | 2020-10-18 11:55 | NUR ---
ACTIVITY THERAPY ASSESSMENT Completed based on observation and interview with Pt. and Pt's Discovery Guide. Pt. was laying in bed but sat up to answer questions. 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 Pt. goes by "Pérez," is over 7 foot tall, and enjoys [employer] trains, TV (M.A.S.H), movies (Blazing Saddles), music (Advantagene), and Reeses, Cheese Puffs. He belongs to [facility] and reports not having any friends he keeps in touch with and has one sister who keeps in touch with him. Pt. needed some repeated questions and tend to speak in slower, drawn out way. He asked how long he was going to be here and if he could get a TV for his room. He was encouraged to keep communicating needs and informed about [employer] devices for potential entertainment options. Pt. has an amputated toe that has developed a pressure ulcer and staff are monitoring closely. Initial goal aimed to increase engagement: Pt. will participate in at least three individual or Activity Therapy groups before discharge.
--- NOTE | 2020-10-18 11:58 | NUR ---
WEEKLY ACTIVITY THERAPY NOTE Date of Admission: 10/16/20 Date of AT Assessment: TBD Precipitating behaviors that initiated intake and admission: throwing self on floor, lacks motivation, physically & verbally aggressive towards staff, refuses cares & lays in urine & feces, agitated, threw walker at staff, yells at peers Goal aimed: TBD Initial Goal: TBD Weekly progress towards goal: NA Group participation level: new patient Weekly highlights: arrived on unit Behaviors observed: TBD Plan: meet/ assess Pt Beneficial adaptations: TBD
[2020-10-18] MEDS: MAGNESIUM OXIDE 400 MG TABLET PO SCH (12:00)
--- NOTE | 2020-10-18 12:47 | NUR ---
Pt has spent most of the day in bed and not out on the unit. His interactions with staff have been appropriate. He is compliant with whole medications. He denies SI/HI/VH/AH/delusions/pain when asked. He has no complaints or concerns at this time. Wound Care Nurse saw him this morning. He has had no behavioral problems so far this shift. Plan of care continues, will pass to next shift.
[2020-10-18] MEDS: CHOLECALCIFEROL (VITAMIN D3) 50,000 UNIT CAPSULE PO SCH (15:45)
[2020-10-18] MEDS: PANTOPRAZOLE 40 MG TABLET. PO SCH (21:42)
--- NOTE | 2020-10-18 22:04 | PDOC ---
Exam Note: Dandy Note: Please also refer to the separate dictated note~for this date of service dictated separately.~Patient seen individually. Discussed the patient with Nursing staff reviewed the chart.~Reviewed interim history and current functioning. Reviewed vital signs,~Labs/ Radiology~and current medications noted below. Continue current treatment with the changes noted in the dictated addendum note Assessment: Vital Signs/I&O: Vital Signs Date Time Temp Pulse Resp B/P (MAP) Pulse Ox O2 Delivery O2 Flow Rate FiO2 10/18/20 06:09 97.2 70 16 122/64 (83) 96 Room Air I & O 10/17/20 10/17/20 10/18/20 15:00 23:00 07:00 Intake Total 600 ml 120 ml Balance 600 ml 120 ml Current Medications: Meds: Current Medications Medications (Trade) Dose Ordered Sig/Lizette Route PRN Reason Start Time Stop Time Status Last Admin Dose Admin Ceftriaxone Sodium 1 gm/ Sodium Chloride 50 ml @ 100 mls/hr 1X ONCE IV 10/16/20 17:00 10/16/20 17:29 DC 10/16/20 17:00 Ceftriaxone Sodium (Rocephin) 1 gm STK-MED ONCE .ROUTE 10/16/20 17:05 10/16/20 17:05 DC Acetaminophen (Tylenol) 650 mg PRN Q4HRS PRN PO MILD PAIN / TEMP > 100.3'F 10/16/20 19:00 Buspirone HCl (Buspar) 10 mg TID PO 10/16/20 21:00 10/18/20 21:41 Calcium Carbonate/ Glycine (Tums) 500 mg PRN Q8HRS PRN PO DYSPEPSIA, 1ST CHOICE 10/16/20 19:00 Diclofenac Sodium (Voltaren) 1 stan BID TP 10/16/20 21:00 10/18/20 21:42 Divalproex Sodium (Depakote) 250 mg TID PO 10/16/20 21:00 10/18/20 21:42 Lactase (Lactaid) 3,000 unit TIDBFRMEAL PO 10/17/20 07:30 10/18/20 17:09 Magnesium Oxide (Magnesium Oxide) 400 mg NOON PO 10/17/20 12:00 10/18/20 12:00 Metoclopramide HCl (Reglan) 10 mg QIDACHS PO 10/16/20 21:00 10/18/20 21:42 Pantoprazole Sodium (Protonix) 40 mg QHS PO 10/16/20 21:00 10/18/20 21:42 Pantoprazole Sodium (Protonix) 40 mg DAILY PO 10/17/20 09:00 UNV Risperidone (RisperDAL) 1 mg QHS PO 10/16/20 21:00 10/18/20 11:47 DC 10/17/20 20:36 Risperidone (RisperDAL) 1.5 mg DAILY PO 10/17/20 09:00 10/18/20 08:43 Sertraline HCl (Zoloft) 200 mg DAILY PO 10/17/20 09:00 10/18/20 08:43 Cephalexin HCl (Keflex) 500 mg BID PO 10/16/20 21:00 10/26/20 09:01 10/18/20 21:41 Loperamide HCl (Imodium) 2 mg PRN Q8HRS PRN PO DIARRHEA 10/16/20 19:00 Acetaminophen (Tylenol) 650 mg PRN Q6HRS PRN PO MILD PAIN / TEMP > 100.3'F 10/16/20 19:45 UNV Multi-Ingredient Ointment (Analgesic [place]) 1 stan PRN QID PRN TP MUSCLE PAIN 10/16/20 19:45 Al Hydroxide/Mg Hydroxide (Mylanta Plus Xs) 15 ml PRN AFTMEALHC PRN PO DYSPEPSIA, 2ND CHOICE 10/16/20 19:45 Magnesium Hydroxide (Milk Of Magnesia) 2,400 mg PRN QHS PRN PO CONSTIPATION 10/16/20 19:45 Lactobacillus Rhamnosus (Culturelle) 1 cap BID PO 10/17/20 21:00 10/18/20 21:42 Risperidone (RisperDAL) 1.5 mg QHS PO 10/18/20 21:00 10/18/20 21:41 Vitamin D (Vitamin D3) 50,000 unit WEEKLY PO 10/18/20 15:45 10/18/20 15:45 Current Medications Medications (Trade) Dose Ordered Sig/Lizette Route PRN Reason Start Time Stop Time Status Last Admin Dose Admin Risperidone (RisperDAL) 1.5 mg QHS PO 10/18/20 21:00 10/18/20 21:41 Vitamin D (Vitamin D3) 50,000 unit WEEKLY PO 10/18/20 15:45 10/18/20 15:45 I have reviewed the current psychotropics carefully including drug interactions. Risk benefit ratio favors no change other than as noted in my dictated progress note. Diagnosis: Problems: (1) Impulse control disorder, unspecified (2) Anxiety disorder, unspecified (3) Bipolar disorder, current episode mixed, severe, with psychotic features (4) Schizoaffective disorder, bipolar type VICTORINA BAR MD Oct 18, 2020 22:04
--- NOTE | 2020-10-18 23:57 | NUR ---
Pt withdrawn to room, lying in bed when approached. Pt calm but sarcastic with his responses. Pt cooperative with assessment and compliant with medications administered whole. No agitation or aggression noted thus far this shift.
[2020-10-19 06:00] VITALS: BP 124/66
[2020-10-19] MEDS: CEPHALEXIN 250 MG CAPSULE PO SCH (08:07)
[2020-10-19] MEDS: LACTASE 3,000 UNIT TABLET PO SCH ×3 (08:07→16:30)
[2020-10-19] MEDS: busPIRone 10 MG TABLET. PO SCH ×3 (08:07→20:37)
[2020-10-19] MEDS: risperiDONE 1 MG TABLET. PO SCH ×2 (08:07→20:37)
[2020-10-19] MEDS: DIVALPROEX SODIUM 250 MG TABLET.DR. PO SCH ×3 (08:08→20:37)
[2020-10-19] MEDS: LACTOBACILLUS RHAMNOSUS GG 1 CAPSULE. PO SCH ×2 (08:08→20:37)
[2020-10-19] MEDS: SERTRALINE 100 MG TABLET. PO SCH (08:08)
[2020-10-19] MEDS: METOCLOPRAMIDE 10 MG TABLET PO SCH ×4 (08:08→20:41)
[2020-10-19] MEDS: DICLOFENAC SODIUM 1% TOPICAL GEL 100GM TUBE. TP SCH ×2 (08:10→20:38)
--- NOTE | 2020-10-19 09:20 | NUR ---
Pt has been present and visible on the unit. His interactions with others have been appropriate so far. He c/o 5/10 pain in the R knee and tailbone. Scheduled Voltaren gel applied to the knee. He is compliant with whole medications, he has been consuming fluids and appetite appears adequate. Absent of SI/HI/VH/AH/delusions. He is A&Ox3 which is consistent to his baseline. Plan of care continues, will pass to next shift.
--- NOTE | 2020-10-19 10:13 | NUR ---
PSYCHOSOCIAL ASSESSMENT ADMISSION DATE: 10/16/20 CONTACT INFORMATION: DPOA/Guardian Contact Name: Sister/DPOA-Carolina Sanchez Contact Address: [place] Contact Phone #: [phone] ETHNIC ORIGIN: REASONS FOR ADMISSION: Aggressive Agitated Angry Combative Depressed Isolating Poor impulse control ADDITIONAL ADMISSION COMMENTS: Per intake record, throwing self on floor, lacks motivation, physically and verbally aggressive toward staff, refuses cares and lays in urine/feces, agitated, threw walker at staff, yells at peers. REASON FOR ADMISSION IN PATIENT/FAMILY'S OWN WORDS: Per pt, "I don't know why I'm here." Per DPOA/Sister, Carolina, pt will deny the reasoning for his admission. "He never really used to lie that I was aware of, but he just doesn't accept ownership." Carolina also reports that in pt's history he went through a pretty rough divorce because he had found out that he couldn't have children and his apparently really wanted children. Consequently, they ended up and he seemed to slip into depression and eventually lost his job. "I don't think he really ever recovered from that." Carolina,also, describes him as becoming a loner. PATIENT/FAMILY EXPECTATIONS FOR ADMISSION: Adjustments in medications to help with agitation, anger, and depression. Also, for him to be cooperative with his cares and increase motivation to be able to do some of his own self cares. LIVING SITUATION: Patient lives with: [facility] Other living arrangements: [facility] Contact Name: Adan Contact Address: [address] [place] [id number] Contact Phone #: [phone] Contact Fax #: [phone] FAMILY RELATIONS: Marital Status: # of Marriages: 1 # of Children: 0 [facility] Family Support: Concerned Cooperative Involved in DC Planning Additional Comments r/t Family: Pt has been and according to his sister when he found out that he was sterile and could not have kids, the marriage went astray and he eventually lost his job presumably d/t depression and maybe never recovering from it. He at that time ended up losing his job and moving in with his parents. His mother passed first and then his father passed in 2003 when he was living with him. Pt's father left him a large amount of money that he ended up blowing. He apparently would get involved and caught up in scams and lose his money. He eventually lost every thing and had to be placed on medicaid and eventually residential care. SIGNIFICANT PSYCHIATRIC/MEDICAL HISTORY: Psychiatric/Treatment History: Pt reports being at [facility] two to three months ago for about 14 days. Pertinent Family History: None known HISTORICAL DATA: Childhood Environment: Little discipline [place] Nurturing Supportive Childhood Environment Additional Comments: Pt was raised by both of his parents and according to pt's only sibling/sister/DPOA, Carolina, she believes that their parents were too old when they had Raul. She elaborates by stating that pt was only [age] years old when she left the home to go off to college. Carolina reports that the parents spoiled Raul and he got everything he ever wanted or needed. Carolina, further, describes that the mother, Michelle, was a nurse and the father, Allan, was a meredith. Carolina does not believe that he was given adequate discipline or supervision when being raised because parents were older and they both worked. Trauma History: None Additional Comments: None reported. 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 service: Jehovah'S Witness background: Grew up [facility] [employer] Sexual orientation: Heterosexual Educational Level: Pt reports that he graduated high school from [place], [place] and he completed [employer] school in [place], [place]. Past/Present Interests/Hobbies: Model trains,photography, traveling, TV-MASH, Movies-Blazing Saddles, country music Monthly income: Medicare/Medicaid Person handling finances: DPOA/Facility Do you have a history of legal problems: No Cultural considerations: None SOCIAL RELATIONSHIPS-CURRENT/PAST: Psychiatrist: None PCP: Dr. Cortez Lopez Counselor/Therapist: None Veterans' Administration: None Support Group: None Dial Mounter/Switchboard Clerk: None Other relationships: None STRENGTHS & WEAKNESSES: Patient's strengths: Good family support Stable living arrange Education level Approachable Other patient strengths: Patient's weaknesses: Lack of resources Poor relationships Poor social skills Health problems Physically Aggressive Other patient weaknesses: PRELIMINARY PLAN OF TREATMENT: Preliminary plan: Dec. Symp. Depression Decrease Isolation Promote Coping Skill Improved Social Skills Medication Stabilization Monitor Med Effects Control abnormal behavior Dec. Outbursts Dec. Aggression Other preliminary treatment comments: While at [facility], pt will be encouraged to attend group and recreational therapy groups. He will report any feelings of depression or agitation and he will be encouraged to come out of his room more often. DISCHARGE PLANNING: Discharge planning/disposition: Additional discharge needs identified: None noted ADDITIONAL INFORMATION: Other Pertinent Data: Information was obtained from pt sister/DPOA, Carolina, as well as pt himself. Pt lacks insight into his mental health needs and lack motivation. Carolina is aware of pt admission and is available for further information if needed.
--- NOTE | 2020-10-19 10:35 | TX PLAN ---
Interdisciplinary Tx Plan Admission Information Oct 16, 2020 at 18:00 Legal Status (on Admission): Voluntary DPOA/Guardian Name: Sister/DPOA-Carolina Sanchez Contact Other Contact Name: Adan Other Contact [phone] Verified Code Status: Full Code Allergies: Coded Allergies: lactose (Verified Allergy, Unknown, Diarrhea, 10/16/20) WA reports extreme GI upset, explosive stools if patient gets any lactose. Diagnoses Primary Diagnosis: (1) Impulse control disorder, unspecified (2) Anxiety disorder, unspecified (3) Bipolar disorder, current episode mixed, severe, with psychotic features (4) Schizoaffective disorder, bipolar type Reasons for Admission: Aggressive, Agitated, Depressed, Angry, Combative, Isolating, Poor impulse control Problem in Patient's Words: Per pt, "I don't know why I'm here." Per DPOA/Sister, Carolina, pt will deny the reasoning for his admission. He never really used to lie that I was aware of, but he just doesn't accept ownership. Carolina also reports that in pt's history he went through a pretty rough divorce because he had found out that he couldn't have children and his apparently really wanted children. Consequently, they ended up and he seemed to slip into depression and eventually lost his job. "I don't think he really ever recovered from that." Carolina describes him as becoming a loner. Additional Admission Comments: Per intake record, throwing self on floor, lacks motivation, physically and verbally aggressive toward staff, refuses cares and lays in urine/feces, agitated, threw walker at staff, yells at peers. Problems Active Problems: Agitated, isolates, demonstrates depression, flat affect, denies symptoms/lacks insight into mental health needs Inactive Problems: combative, aggressive Pt Strengths/Limitations Ability for [place]: Poor Cognitive Functioning/Ability: Fair Communication Skills/Ability: Fair Financial Resources: Poor Insight/Judgement: Poor Intellectual Ability: Fair Physical Health: Poor Social Skills: Fair Stability in Family: Fair Stability in School/Work: Fair Verbal Skills: Fair Discharge Criteria Discharge Criteria: Adequate arrangements @DC, Adequate self-care, Verbal commit med comply, Improved mood/thought Other Discharge Comments: None noted Preliminary Discharge Plan Preliminary DC Plan: Current Living Arrange. Special Precautions Special Precautions: Agitation/Assault Fall Risk: Moderate Initial D/C Plan Plan is for pt to return to his facility at [facility] Identified Discharge Needs: None noted Currently Utilized Resources Currently Utilized Resources/P: [facility] Kathleen or Cyn Referrals Community Resources: None noted at this time. Identified Problems/Hx/Goals Objectives/Short-Term Goals Short Term Goals: Control abnormal behavior, Dec. Aggression, Decrease Isolation, Dec. Outbursts, Dec. Symp. Depression, Improved Social Skills, Medication Stabilization, Monitor Med Effects, Promote Coping Skill Short Term Goals in Patient's: To demonstrate less depression,agitation, aggression, and be more compliant with self-cares along with respectful to others. Interventions/Frequency Staff Interventions/Frequency&: Psychiatry to assess pt three times per week for medication management. Nursing to assess behaviors, monitor medications, and complete 15 minute checks daily. Social work to see pt at least two times weekly to aid in return to placement. Activities to encourage pt to participate in group activities daily. 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 Education: Pt reports that he graduated high school from [place], [place] and he completed [employer] school in [place], [place]. Community Follow-up PCP Community Provider/Family Inpu: Pt sister/DPALDAIR aware of pt hospitalization and is available for further information as needed. Treatment Plan Explained Patient/Medical Accounts Receivable Specialist had this treatment plan explained to him/her as indicated by the signature below and has been given the opportunity to ask questions and make suggestions: Date: Patient/Medical Accounts Receivable Specialist Signature: Additional Comments Treatment plan was completed on 10/18/20 and entered on 10/19/20. ROSE RUANO Oct 19, 2020 10:35
[2020-10-19] MEDS: MAGNESIUM OXIDE 400 MG TABLET PO SCH (12:00)
--- NOTE | 2020-10-19 14:16 | RAD ---
EXAM: 3 phase nuclear bone scan. HISTORY: Left second toe pain, redness and swelling. TECHNIQUE: Following the intravenous injection of 20 mCi of Tc 99m labeled methylene diphosphonate (M DP), whole body imaging was performed. COMPARISON: None. FINDINGS: There is increased radiotracer activity involving the left second toe on flow, blood pool a nd delayed images. There is also a lesser degree of increased radiotracer activity on flow and blood pool images involving the distal left first metatarsal or base of the left first phalanx status post amputation. There are multiple scattered focal areas of radiotracer elsewhere within both feet an ank le on delayed images, predominantly involving the left forefoot and bilateral hindfeet. IMPRESSION: 1. Abnormal radiotracer activity involving the left second toe consistent with osteomyelitis. There i s no prior study for correlation Correlate with radiographic or MRI findings. 2. Abnormal radiotracer activity involving the left first metatarsal head or base of the left phalanx status post amputation. This may be due to tubal ligation surgery or additional osteomyelitis. Corre late radiographic or MRI findings. 3. Multiple scattered focal areas of abnormal radiotracer activity within both feet and ankles on del ayed images. The distribution of these findings favors extensive degenerative or neuropathic changes. Correlate with radiographic or MRI findings. Electronically signed by: Kay Jamison MD (10/19/2020 2:13 PM) [id number]
[2020-10-19] MEDS: PANTOPRAZOLE 40 MG TABLET. PO SCH (20:37)
[2020-10-19] MEDS: SMZ/TMP 800/160MG TABLET. PO SCH (20:41)
[2020-10-19] MEDS: DOXYCYCLINE HYCLATE 100 MG TABLET PO SCH (20:41)
--- NOTE | 2020-10-19 22:29 | PDOC ---
Exam Note: Dandy Note: This note is a late entry for 10/18/2020 covers elements not covered in my initial note. Subjective: The patient was reviewed on telehealth rounds in the morning of 10/18/2020 as an option during the COVID-19 pandemic period for a treatment team meeting with Trista Perez, Lisa Calzada (social science instructor), Tiffany, activity therapy and Lianne MADRIGAL, discussed and reviewed the chart. We discussed the patients diagnoses, progress, current psychotropics, reviewed drug interactions, risk-benefit ratio of current psychotropics at some length. He slept 6-3/4 hours previous night. He has a sister who is significantly older than him, now retired and living in [place]. Reportedly the patient was youngest in his family and was quite spoilt by his parents. The father had left him significant amount of money which the patient worked through and used up. 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 He has significant mood swings and psychotic symptoms intermittently since then. We will get his past psychiatric records from [facility]. He was also residing at [facility]. I met with him on telehealth rounds in the evening. He complains of pain in the knee and coccyx area. We will defer to Dr. Angel. He has pressure ulcers on the bottom of his toe. Review of Systems: No CV, , pulmonary, eye, ENT system symptoms on review. Mental Status Exam: The patient is reasonably oriented. Speech is coherent. Abstraction fair. Computation impaired. Language function intact. Attention span short. Mood and affect labile, withdrawn and at other times no active suicidal or homicidal ideation. Laboratory Data: Reviewed. Impression: Schizoaffective disorder bipolar type mixed with psychotic features. Anxiety disorder unspecified. Impulse control disorder unspecified. Plan: Continue Depakote ER current dosage, level therapeutic at 74. Increase Risperdal from 1.5 mg a.m. and 1 mg h.s. to 1.5 mg twice a day. Maintain Zoloft, BuSpar unchanged. Adjust further as clinically indicated. Assessment: Vital Signs/I&O: Vital Signs Date Time Temp Pulse Resp B/P (MAP) Pulse Ox O2 Delivery O2 Flow Rate FiO2 10/19/20 06:00 97.2 67 18 124/66 (85) 95 Room Air I & O 10/18/20 10/18/20 10/19/20 15:00 23:00 07:00 Intake Total 120 ml 240 ml Balance 120 ml 240 ml Current Medications: Meds: Current Medications Medications (Trade) Dose Ordered Sig/Lizette Route PRN Reason Start Time Stop Time Status Last Admin Dose Admin Ceftriaxone Sodium 1 gm/ Sodium Chloride 50 ml @ 100 mls/hr 1X ONCE IV 10/16/20 17:00 10/16/20 17:29 DC 10/16/20 17:00 Ceftriaxone Sodium (Rocephin) 1 gm STK-MED ONCE .ROUTE 10/16/20 17:05 10/16/20 17:05 DC Acetaminophen (Tylenol) 650 mg PRN Q4HRS PRN PO MILD PAIN / TEMP > 100.3'F 10/16/20 19:00 Buspirone HCl (Buspar) 10 mg TID PO 10/16/20 21:00 10/19/20 20:37 Calcium Carbonate/ Glycine (Tums) 500 mg PRN Q8HRS PRN PO DYSPEPSIA, 1ST CHOICE 10/16/20 19:00 Diclofenac Sodium (Voltaren) 1 stan BID TP 10/16/20 21:00 10/19/20 20:38 Divalproex Sodium (Depakote) 250 mg TID PO 10/16/20 21:00 10/19/20 20:37 Lactase (Lactaid) 3,000 unit TIDBFRMEAL PO 10/17/20 07:30 10/19/20 16:30 Magnesium Oxide (Magnesium Oxide) 400 mg NOON PO 10/17/20 12:00 10/19/20 12:00 Metoclopramide HCl (Reglan) 10 mg QIDACHS PO 10/16/20 21:00 10/19/20 20:41 Pantoprazole Sodium (Protonix) 40 mg QHS PO 10/16/20 21:00 10/19/20 20:37 Pantoprazole Sodium (Protonix) 40 mg DAILY PO 10/17/20 09:00 UNV Risperidone (RisperDAL) 1 mg QHS PO 10/16/20 21:00 10/18/20 11:47 DC 10/17/20 20:36 Risperidone (RisperDAL) 1.5 mg DAILY PO 10/17/20 09:00 10/19/20 08:07 Sertraline HCl (Zoloft) 200 mg DAILY PO 10/17/20 09:00 10/19/20 08:08 Cephalexin HCl (Keflex) 500 mg BID PO 10/16/20 21:00 10/19/20 16:10 DC 10/19/20 08:07 Loperamide HCl (Imodium) 2 mg PRN Q8HRS PRN PO DIARRHEA 10/16/20 19:00 Acetaminophen (Tylenol) 650 mg PRN Q6HRS PRN PO MILD PAIN / TEMP > 100.3'F 10/16/20 19:45 UNV Multi-Ingredient Ointment (Analgesic [place]) 1 stan PRN QID PRN TP MUSCLE PAIN 10/16/20 19:45 Al Hydroxide/Mg Hydroxide (Mylanta Plus Xs) 15 ml PRN AFTMEALHC PRN PO DYSPEPSIA, 2ND CHOICE 10/16/20 19:45 Magnesium Hydroxide (Milk Of Magnesia) 2,400 mg PRN QHS PRN PO CONSTIPATION 10/16/20 19:45 Lactobacillus Rhamnosus (Culturelle) 1 cap BID PO 10/17/20 21:00 10/19/20 20:37 Risperidone (RisperDAL) 1.5 mg QHS PO 10/18/20 21:00 10/19/20 20:37 Vitamin D (Vitamin D3) 50,000 unit WEEKLY PO 10/18/20 15:45 10/18/20 15:45 Doxycycline Hyclate (Vibra-Tab) 100 mg BID PO 10/19/20 21:00 10/29/20 22:00 10/19/20 20:41 Trimethoprim/ Sulfamethoxazole (Bactrim Ds) 1 tab BID PO 10/19/20 21:00 10/29/20 22:00 10/19/20 20:41 Current Medications Medications (Trade) Dose Ordered Sig/Lizette Route PRN Reason Start Time Stop Time Status Last Admin Dose Admin Doxycycline Hyclate (Vibra-Tab) 100 mg BID PO 10/19/20 21:00 10/29/20 22:00 10/19/20 20:41 Trimethoprim/ Sulfamethoxazole (Bactrim Ds) 1 tab BID PO 10/19/20 21:00 10/29/20 22:00 10/19/20 20:41 I have reviewed the current psychotropics carefully including drug interactions. Risk benefit ratio favors no change other than as noted in my dictated progress note. Diagnosis: Problems: (1) Schizoaffective disorder, chronic condition with acute exacerbation (2) Schizoaffective disorder, bipolar type (3) Impulse control disorder, unspecified (4) Anxiety disorder, unspecified (5) Bipolar disorder, current episode mixed, severe, with psychotic features VICTORINA BAR MD Oct 19, 2020 22:29
--- NOTE | 2020-10-19 22:51 | PDOC ---
Exam Note: Dandy Note: Please also refer to the separate dictated note~for this date of service dictated separately.~Patient seen individually. Discussed the patient with Nursing staff reviewed the chart.~Reviewed interim history and current functioning. Reviewed vital signs,~Labs/ Radiology~and current medications noted below. Continue current treatment with the changes noted in the dictated addendum note Assessment: Vital Signs/I&O: Vital Signs Date Time Temp Pulse Resp B/P (MAP) Pulse Ox O2 Delivery O2 Flow Rate FiO2 10/19/20 06:00 97.2 67 18 124/66 (85) 95 Room Air I & O 10/18/20 10/18/20 10/19/20 15:00 23:00 07:00 Intake Total 120 ml 240 ml Balance 120 ml 240 ml Current Medications: Meds: Current Medications Medications (Trade) Dose Ordered Sig/Lizette Route PRN Reason Start Time Stop Time Status Last Admin Dose Admin Doxycycline Hyclate (Vibra-Tab) 100 mg BID PO 10/19/20 21:00 10/29/20 22:00 10/19/20 20:41 Trimethoprim/ Sulfamethoxazole (Bactrim Ds) 1 tab BID PO 10/19/20 21:00 10/29/20 22:00 10/19/20 20:41 I have reviewed the current psychotropics carefully including drug interactions. Risk benefit ratio favors no change other than as noted in my dictated progress note. Diagnosis: Problems: (1) Schizoaffective disorder, chronic condition with acute exacerbation (2) Schizoaffective disorder, bipolar type (3) Impulse control disorder, unspecified (4) Anxiety disorder, unspecified (5) Bipolar disorder, current episode mixed, severe, with psychotic features VICTORINA BAR MD Oct 19, 2020 22:51
--- NOTE | 2020-10-19 23:59 | NUR ---
Patient is in his room on assumption of care, awake in bed. He is flat, pleasant. Compliant with assessments and medications whole. No agitation. Patient denies any pain or discomfort when asked. He appears to be sleeping comfortably at present time. Will continue to monitor.
[2020-10-20 06:02] VITALS: BP 97/56
[2020-10-20] MEDS: SERTRALINE 100 MG TABLET. PO SCH (08:50)
[2020-10-20] MEDS: busPIRone 10 MG TABLET. PO SCH ×3 (08:50→20:16)
[2020-10-20] MEDS: risperiDONE 1 MG TABLET. PO SCH ×2 (08:50→20:17)
[2020-10-20] MEDS: LACTASE 3,000 UNIT TABLET PO SCH ×3 (08:50→16:50)
[2020-10-20] MEDS: DOXYCYCLINE HYCLATE 100 MG TABLET PO SCH ×2 (08:50→20:16)
[2020-10-20] MEDS: DIVALPROEX SODIUM 250 MG TABLET.DR. PO SCH ×3 (08:50→20:16)
[2020-10-20] MEDS: METOCLOPRAMIDE 10 MG TABLET PO SCH ×4 (08:50→20:17)
[2020-10-20] MEDS: SMZ/TMP 800/160MG TABLET. PO SCH ×2 (08:50→20:16)
[2020-10-20] MEDS: LACTOBACILLUS RHAMNOSUS GG 1 CAPSULE. PO SCH ×2 (08:50→20:16)
[2020-10-20] MEDS: DICLOFENAC SODIUM 1% TOPICAL GEL 100GM TUBE. TP SCH ×2 (08:53→20:17)
[2020-10-20] MEDS: MAGNESIUM OXIDE 400 MG TABLET PO SCH (12:00)
--- NOTE | 2020-10-20 13:03 | NUR ---
Nursing note: Patient in bed room for morning medications & assessment, took pills whole. He denies SI/HI/VH/AH/AH/delusions/pain/discomfort at this time. He self propels in wheel chair. Patient is alert & oriented He is calm and compliant. He is flat and isolative to room other than for meals, does not interact with peers or groups. He is currently in his bed. Plan of care continues, will continue to monitor.
[2020-10-20 15:41] VITALS: BP 114/71
[2020-10-20] MEDS: PANTOPRAZOLE 40 MG TABLET. PO SCH (20:16)
--- NOTE | 2020-10-20 22:30 | PDOC ---
Exam Note: Dandy Note: Please also refer to the separate dictated note~for this date of service dictated separately.~Patient seen individually. Discussed the patient with Nursing staff reviewed the chart.~Reviewed interim history and current functioning. Reviewed vital signs,~Labs/ Radiology~and current medications noted below. Continue current treatment with the changes noted in the dictated addendum note Assessment: Vital Signs/I&O: Vital Signs Date Time Temp Pulse Resp B/P (MAP) Pulse Ox O2 Delivery O2 Flow Rate FiO2 10/20/20 15:41 97.6 75 20 114/71 (85) 99 10/20/20 06:02 Room Air I & O 10/19/20 10/19/20 10/20/20 14:59 22:59 06:59 Intake Total 1060 ml 360 ml Balance 1060 ml 360 ml Current Medications: I have reviewed the current psychotropics carefully including drug interactions. Risk benefit ratio favors no change other than as noted in my dictated progress note. Diagnosis: Problems: (1) Schizoaffective disorder, chronic condition with acute exacerbation (2) Schizoaffective disorder, bipolar type (3) Impulse control disorder, unspecified (4) Anxiety disorder, unspecified (5) Bipolar disorder, current episode mixed, severe, with psychotic features VICTORINA BAR MD Oct 20, 2020 22:30
--- NOTE | 2020-10-20 23:05 | NUR ---
Pt laying in bed on assessment. Pt calm and compliant with medication and assessment. Reports pain to right knee, Voltaren gel applied as ordered. No behaviors noted at this time.
[2020-10-21 05:46] VITALS: BP 115/67
[2020-10-21] MEDS: busPIRone 10 MG TABLET. PO SCH ×3 (08:34→20:48)
[2020-10-21] MEDS: SMZ/TMP 800/160MG TABLET. PO SCH ×2 (08:34→20:49)
[2020-10-21] MEDS: DOXYCYCLINE HYCLATE 100 MG TABLET PO SCH ×2 (08:34→20:48)
[2020-10-21] MEDS: LACTOBACILLUS RHAMNOSUS GG 1 CAPSULE. PO SCH ×2 (08:34→20:48)
[2020-10-21] MEDS: METOCLOPRAMIDE 10 MG TABLET PO SCH ×4 (08:34→20:48)
[2020-10-21] MEDS: DIVALPROEX SODIUM 250 MG TABLET.DR. PO SCH ×3 (08:35→20:48)
[2020-10-21] MEDS: LACTASE 3,000 UNIT TABLET PO SCH ×3 (08:35→16:26)
[2020-10-21] MEDS: risperiDONE 1 MG TABLET. PO SCH ×2 (08:35→20:49)
[2020-10-21] MEDS: SERTRALINE 100 MG TABLET. PO SCH (08:35)
[2020-10-21] MEDS: DICLOFENAC SODIUM 1% TOPICAL GEL 100GM TUBE. TP SCH ×2 (08:37→20:50)
--- NOTE | 2020-10-21 09:22 | PDOC ---
Exam Note: Dandy Note: This note is a late entry for 10/19/2020 covers elements not covered in my initial note. Subjective: The patient was seen on telehealth rounds in the afternoon of 10/19/2020 as an option during the COVID-19 pandemic period with Raven MADRIGAL, discussed and reviewed the chart. He slept 6-3/4 hours previous night. He spends much time in his room, which is where I met with him on telehealth rounds. He was in bed, otherwise, appropriate interaction. He has osteomyelitis of his toes per bone scan. We will defer to Dr. Angel. Review of Systems: No CV, , pulmonary, eye, ENT system symptoms on review. Mental Status Exam: The patient is reasonably oriented. He was obsessed and asking repeatedly about wanting a lactate tablet before he has ice-cream. I did discuss with nursing staff Raven and he gets that with every meal. We will monitor this. Speech is coherent. Abstraction fair. Computation impaired. Language function intact. Attention span short. Mood and affect labile, withdrawn. No active suicidal or homicidal ideation. Laboratory Data: Reviewed. Impression: Schizoaffective disorder bipolar type mixed with psychotic features. Anxiety disorder unspecified. Impulse control disorder unspecified. Plan: Continue current psychotropics. Assessment: Vital Signs/I&O: Vital Signs Date Time Temp Pulse Resp B/P (MAP) Pulse Ox O2 Delivery O2 Flow Rate FiO2 10/21/20 05:46 97.1 53 14 115/67 (83) 96 10/20/20 06:02 Room Air I & O 10/20/20 10/20/20 10/21/20 15:00 23:00 07:00 Intake Total 720 ml 120 ml Balance 720 ml 120 ml Current Medications: Meds: Current Medications Medications (Trade) Dose Ordered Sig/Lizette Route PRN Reason Start Time Stop Time Status Last Admin Dose Admin Ceftriaxone Sodium 1 gm/ Sodium Chloride 50 ml @ 100 mls/hr 1X ONCE IV 10/16/20 17:00 10/16/20 17:29 DC 10/16/20 17:00 Ceftriaxone Sodium (Rocephin) 1 gm STK-MED ONCE .ROUTE 10/16/20 17:05 10/16/20 17:05 DC Acetaminophen (Tylenol) 650 mg PRN Q4HRS PRN PO MILD PAIN / TEMP > 100.3'F 10/16/20 19:00 Buspirone HCl (Buspar) 10 mg TID PO 10/16/20 21:00 10/21/20 08:34 Calcium Carbonate/ Glycine (Tums) 500 mg PRN Q8HRS PRN PO DYSPEPSIA, 1ST CHOICE 10/16/20 19:00 Diclofenac Sodium (Voltaren) 1 stan BID TP 10/16/20 21:00 10/21/20 08:37 Divalproex Sodium (Depakote) 250 mg TID PO 10/16/20 21:00 10/21/20 08:35 Lactase (Lactaid) 3,000 unit TIDBFRMEAL PO 10/17/20 07:30 10/21/20 08:35 Magnesium Oxide (Magnesium Oxide) 400 mg NOON PO 10/17/20 12:00 10/20/20 12:00 Metoclopramide HCl (Reglan) 10 mg QIDACHS PO 10/16/20 21:00 10/21/20 08:34 Pantoprazole Sodium (Protonix) 40 mg QHS PO 10/16/20 21:00 10/20/20 20:16 Pantoprazole Sodium (Protonix) 40 mg DAILY PO 10/17/20 09:00 UNV Risperidone (RisperDAL) 1 mg QHS PO 10/16/20 21:00 10/18/20 11:47 DC 10/17/20 20:36 Risperidone (RisperDAL) 1.5 mg DAILY PO 10/17/20 09:00 10/21/20 08:35 Sertraline HCl (Zoloft) 200 mg DAILY PO 10/17/20 09:00 10/21/20 08:35 Cephalexin HCl (Keflex) 500 mg BID PO 10/16/20 21:00 10/19/20 16:10 DC 10/19/20 08:07 Loperamide HCl (Imodium) 2 mg PRN Q8HRS PRN PO DIARRHEA 10/16/20 19:00 Acetaminophen (Tylenol) 650 mg PRN Q6HRS PRN PO MILD PAIN / TEMP > 100.3'F 10/16/20 19:45 UNV Multi-Ingredient Ointment (Analgesic [place]) 1 stan PRN QID PRN TP MUSCLE PAIN 10/16/20 19:45 Al Hydroxide/Mg Hydroxide (Mylanta Plus Xs) 15 ml PRN AFTMEALHC PRN PO DYSPEPSIA, 2ND CHOICE 10/16/20 19:45 Magnesium Hydroxide (Milk Of Magnesia) 2,400 mg PRN QHS PRN PO CONSTIPATION 10/16/20 19:45 Lactobacillus Rhamnosus (Culturelle) 1 cap BID PO 10/17/20 21:00 10/21/20 08:34 Risperidone (RisperDAL) 1.5 mg QHS PO 10/18/20 21:00 10/20/20 20:17 Vitamin D (Vitamin D3) 50,000 unit WEEKLY PO 10/18/20 15:45 10/18/20 15:45 Doxycycline Hyclate (Vibra-Tab) 100 mg BID PO 10/19/20 21:00 10/29/20 22:00 10/21/20 08:34 Trimethoprim/ Sulfamethoxazole (Bactrim Ds) 1 tab BID PO 10/19/20 21:00 10/29/20 22:00 10/21/20 08:34 I have reviewed the current psychotropics carefully including drug interactions. Risk benefit ratio favors no change other than as noted in my dictated progress note. Diagnosis: Problems: (1) Schizoaffective disorder, bipolar type (2) Impulse control disorder, unspecified (3) Anxiety disorder, unspecified (4) Bipolar disorder, current episode mixed, severe, with psychotic features VICTORINA BAR MD Oct 21, 2020 09:22
--- NOTE | 2020-10-21 09:48 | PDOC ---
Exam Note: Dandy Note: This note is a late entry for 10/20/2020 covers elements not covered in my initial note. Subjective: The patient was seen on telehealth rounds in the afternoon of 10/20/2020 as an option during the COVID-19 pandemic period with Glory MADRIGAL, discussed and reviewed the chart. He slept 7-1/2 hours previous night. He does have UTI and is on Keflex. Bone scan does show osteomyelitis. We will defer to Dr. Angel. He did come to dayroom after lunch, cooperative, still obsessing about lactate tablet for his ice-cream as I met with him on telehealth rounds. Otherwise no clear aggressive or disruptive behaviors noted. Valproic acid level therapeutic at 74. Review of Systems: No CV, , pulmonary, eye, ENT system symptoms on review. Mental Status Exam: The patient is reasonably oriented. Speech is coherent. Abstraction fair. Computation impaired. Language function intact. Attention span short. Mood and affect labile, withdrawn. No active suicidal or homicidal ideation. Laboratory Data: Reviewed. Impression: Schizoaffective disorder bipolar type mixed with psychotic features. Anxiety disorder unspecified. Impulse control disorder unspecified. Plan: Continue current psychotropics. Assessment: Vital Signs/I&O: Vital Signs Date Time Temp Pulse Resp B/P (MAP) Pulse Ox O2 Delivery O2 Flow Rate FiO2 10/21/20 05:46 97.1 53 14 115/67 (83) 96 10/20/20 06:02 Room Air I & O 10/20/20 10/20/20 10/21/20 15:00 23:00 07:00 Intake Total 720 ml 120 ml Balance 720 ml 120 ml Current Medications: Meds: Current Medications Medications (Trade) Dose Ordered Sig/Lizette Route PRN Reason Start Time Stop Time Status Last Admin Dose Admin Ceftriaxone Sodium 1 gm/ Sodium Chloride 50 ml @ 100 mls/hr 1X ONCE IV 10/16/20 17:00 10/16/20 17:29 DC 10/16/20 17:00 Ceftriaxone Sodium (Rocephin) 1 gm STK-MED ONCE .ROUTE 10/16/20 17:05 10/16/20 17:05 DC Acetaminophen (Tylenol) 650 mg PRN Q4HRS PRN PO MILD PAIN / TEMP > 100.3'F 10/16/20 19:00 Buspirone HCl (Buspar) 10 mg TID PO 10/16/20 21:00 10/21/20 08:34 Calcium Carbonate/ Glycine (Tums) 500 mg PRN Q8HRS PRN PO DYSPEPSIA, 1ST CHOICE 10/16/20 19:00 Diclofenac Sodium (Voltaren) 1 stan BID TP 10/16/20 21:00 10/21/20 08:37 Divalproex Sodium (Depakote) 250 mg TID PO 10/16/20 21:00 10/21/20 08:35 Lactase (Lactaid) 3,000 unit TIDBFRMEAL PO 10/17/20 07:30 10/21/20 08:35 Magnesium Oxide (Magnesium Oxide) 400 mg NOON PO 10/17/20 12:00 10/20/20 12:00 Metoclopramide HCl (Reglan) 10 mg QIDACHS PO 10/16/20 21:00 10/21/20 08:34 Pantoprazole Sodium (Protonix) 40 mg QHS PO 10/16/20 21:00 10/20/20 20:16 Pantoprazole Sodium (Protonix) 40 mg DAILY PO 10/17/20 09:00 UNV Risperidone (RisperDAL) 1 mg QHS PO 10/16/20 21:00 10/18/20 11:47 DC 10/17/20 20:36 Risperidone (RisperDAL) 1.5 mg DAILY PO 10/17/20 09:00 10/21/20 08:35 Sertraline HCl (Zoloft) 200 mg DAILY PO 10/17/20 09:00 10/21/20 08:35 Cephalexin HCl (Keflex) 500 mg BID PO 10/16/20 21:00 10/19/20 16:10 DC 10/19/20 08:07 Loperamide HCl (Imodium) 2 mg PRN Q8HRS PRN PO DIARRHEA 10/16/20 19:00 Acetaminophen (Tylenol) 650 mg PRN Q6HRS PRN PO MILD PAIN / TEMP > 100.3'F 10/16/20 19:45 UNV Multi-Ingredient Ointment (Analgesic [place]) 1 stan PRN QID PRN TP MUSCLE PAIN 10/16/20 19:45 Al Hydroxide/Mg Hydroxide (Mylanta Plus Xs) 15 ml PRN AFTMEALHC PRN PO DYSPEPSIA, 2ND CHOICE 10/16/20 19:45 Magnesium Hydroxide (Milk Of Magnesia) 2,400 mg PRN QHS PRN PO CONSTIPATION 10/16/20 19:45 Lactobacillus Rhamnosus (Culturelle) 1 cap BID PO 10/17/20 21:00 10/21/20 08:34 Risperidone (RisperDAL) 1.5 mg QHS PO 10/18/20 21:00 10/20/20 20:17 Vitamin D (Vitamin D3) 50,000 unit WEEKLY PO 10/18/20 15:45 10/18/20 15:45 Doxycycline Hyclate (Vibra-Tab) 100 mg BID PO 10/19/20 21:00 10/29/20 22:00 10/21/20 08:34 Trimethoprim/ Sulfamethoxazole (Bactrim Ds) 1 tab BID PO 10/19/20 21:00 10/29/20 22:00 10/21/20 08:34 I have reviewed the current psychotropics carefully including drug interactions. Risk benefit ratio favors no change other than as noted in my dictated progress note. Diagnosis: Problems: (1) Schizoaffective disorder, chronic condition with acute exacerbation (2) Schizoaffective disorder, bipolar type (3) Impulse control disorder, unspecified (4) Anxiety disorder, unspecified (5) Bipolar disorder, current episode mixed, severe, with psychotic features VICTORINA BAR MD Oct 21, 2020 09:48
[2020-10-21] MEDS: MAGNESIUM OXIDE 400 MG TABLET PO SCH (12:00)
--- NOTE | 2020-10-21 15:28 | NUR ---
Nursing note: Patient in dinning room for morning medications & assessment, took pills whole. He denies SI/HI/VH/AH/AH/delusions/pain/discomfort at this time. He self propels in wheel chair. Patient is alert & oriented He is calm and compliant. He is flat and isolative to his room, refused lunch, went to day room in the afternoon with encouragement, does not interact with peers or groups. He is currently in the day room. Plan of care continues, will continue to monitor.
[2020-10-21 16:35] VITALS: BP 130/74
[2020-10-21] MEDS: PANTOPRAZOLE 40 MG TABLET. PO SCH (20:48)
--- NOTE | 2020-10-21 21:59 | PDOC ---
Exam Note: Dandy Note: Please also refer to the separate dictated note~for this date of service dictated separately.~Patient seen individually. Discussed the patient with Nursing staff reviewed the chart.~Reviewed interim history and current functioning. Reviewed vital signs,~Labs/ Radiology~and current medications noted below. Continue current treatment with the changes noted in the dictated addendum note Assessment: Vital Signs/I&O: Vital Signs Date Time Temp Pulse Resp B/P (MAP) Pulse Ox O2 Delivery O2 Flow Rate FiO2 10/21/20 16:35 97.6 74 18 130/74 (92) 98 10/20/20 06:02 Room Air I & O 10/20/20 10/20/20 10/21/20 15:00 23:00 07:00 Intake Total 720 ml 120 ml Balance 720 ml 120 ml Current Medications: Meds: Current Medications Medications (Trade) Dose Ordered Sig/Lizette Route PRN Reason Start Time Stop Time Status Last Admin Dose Admin Ceftriaxone Sodium 1 gm/ Sodium Chloride 50 ml @ 100 mls/hr 1X ONCE IV 10/16/20 17:00 10/16/20 17:29 DC 10/16/20 17:00 Ceftriaxone Sodium (Rocephin) 1 gm STK-MED ONCE .ROUTE 10/16/20 17:05 10/16/20 17:05 DC Acetaminophen (Tylenol) 650 mg PRN Q4HRS PRN PO MILD PAIN / TEMP > 100.3'F 10/16/20 19:00 Buspirone HCl (Buspar) 10 mg TID PO 10/16/20 21:00 10/21/20 20:48 Calcium Carbonate/ Glycine (Tums) 500 mg PRN Q8HRS PRN PO DYSPEPSIA, 1ST CHOICE 10/16/20 19:00 Diclofenac Sodium (Voltaren) 1 stan BID TP 10/16/20 21:00 10/21/20 20:50 Divalproex Sodium (Depakote) 250 mg TID PO 10/16/20 21:00 10/21/20 20:48 Lactase (Lactaid) 3,000 unit TIDBFRMEAL PO 10/17/20 07:30 10/21/20 16:26 Magnesium Oxide (Magnesium Oxide) 400 mg NOON PO 10/17/20 12:00 10/21/20 12:00 Metoclopramide HCl (Reglan) 10 mg QIDACHS PO 10/16/20 21:00 10/21/20 20:48 Pantoprazole Sodium (Protonix) 40 mg QHS PO 10/16/20 21:00 10/21/20 20:48 Pantoprazole Sodium (Protonix) 40 mg DAILY PO 10/17/20 09:00 UNV Risperidone (RisperDAL) 1 mg QHS PO 10/16/20 21:00 10/18/20 11:47 DC 10/17/20 20:36 Risperidone (RisperDAL) 1.5 mg DAILY PO 10/17/20 09:00 10/21/20 08:35 Sertraline HCl (Zoloft) 200 mg DAILY PO 10/17/20 09:00 10/21/20 08:35 Cephalexin HCl (Keflex) 500 mg BID PO 10/16/20 21:00 10/19/20 16:10 DC 10/19/20 08:07 Loperamide HCl (Imodium) 2 mg PRN Q8HRS PRN PO DIARRHEA 10/16/20 19:00 Acetaminophen (Tylenol) 650 mg PRN Q6HRS PRN PO MILD PAIN / TEMP > 100.3'F 10/16/20 19:45 UNV Multi-Ingredient Ointment (Analgesic [place]) 1 stan PRN QID PRN TP MUSCLE PAIN 10/16/20 19:45 Al Hydroxide/Mg Hydroxide (Mylanta Plus Xs) 15 ml PRN AFTMEALHC PRN PO DYSPEPSIA, 2ND CHOICE 10/16/20 19:45 Magnesium Hydroxide (Milk Of Magnesia) 2,400 mg PRN QHS PRN PO CONSTIPATION 10/16/20 19:45 10/21/20 20:48 Lactobacillus Rhamnosus (Culturelle) 1 cap BID PO 10/17/20 21:00 10/21/20 20:48 Risperidone (RisperDAL) 1.5 mg QHS PO 10/18/20 21:00 10/21/20 20:49 Vitamin D (Vitamin D3) 50,000 unit WEEKLY PO 10/18/20 15:45 10/18/20 15:45 Doxycycline Hyclate (Vibra-Tab) 100 mg BID PO 10/19/20 21:00 10/29/20 22:00 10/21/20 20:48 Trimethoprim/ Sulfamethoxazole (Bactrim Ds) 1 tab BID PO 10/19/20 21:00 10/29/20 22:00 10/21/20 20:49 I have reviewed the current psychotropics carefully including drug interactions. Risk benefit ratio favors no change other than as noted in my dictated progress note. Diagnosis: Problems: (1) Schizoaffective disorder, bipolar type (2) Impulse control disorder, unspecified (3) Anxiety disorder, unspecified (4) Bipolar disorder, current episode mixed, severe, with psychotic features VICTORINA BAR MD Oct 21, 2020 21:59
--- NOTE | 2020-10-21 22:20 | NUR ---
Patient is in his room on assumption of care, awake in bed. He is flat, pleasant. Compliant with assessments and medications whole. Complained of constipation and requested PRN MOM at HS. No agitation. Patient denies any pain or discomfort when asked. He appears to be sleeping comfortably at present time. Will continue to monitor.
[2020-10-22 05:27] VITALS: BP 115/72
[2020-10-22] MEDS: busPIRone 10 MG TABLET. PO SCH ×3 (08:32→20:43)
[2020-10-22] MEDS: SERTRALINE 100 MG TABLET. PO SCH (08:32)
[2020-10-22] MEDS: LACTASE 3,000 UNIT TABLET PO SCH ×3 (08:32→17:22)
[2020-10-22] MEDS: DOXYCYCLINE HYCLATE 100 MG TABLET PO SCH ×2 (08:32→20:43)
[2020-10-22] MEDS: SMZ/TMP 800/160MG TABLET. PO SCH ×2 (08:33→20:43)
[2020-10-22] MEDS: LACTOBACILLUS RHAMNOSUS GG 1 CAPSULE. PO SCH ×2 (08:33→20:43)
[2020-10-22] MEDS: risperiDONE 1 MG TABLET. PO SCH ×2 (08:33→20:43)
[2020-10-22] MEDS: DIVALPROEX SODIUM 250 MG TABLET.DR. PO SCH ×3 (08:33→20:43)
[2020-10-22] MEDS: METOCLOPRAMIDE 10 MG TABLET PO SCH ×4 (08:33→20:43)
[2020-10-22] MEDS: DICLOFENAC SODIUM 1% TOPICAL GEL 100GM TUBE. TP SCH ×2 (08:36→20:44)
--- NOTE | 2020-10-22 08:44 | PDOC ---
Exam Note: Dandy Note: This note is a late entry for 10/21/2020 covers elements not covered in my initial note. Subjective: The patient was seen individually in the evening of 10/21/2020 with Glory MADRIGAL, discussed and reviewed the chart. He slept 7 hours previous night. He is withdrawn, spends much time in his room, quite obsessive about wanting a lactate so that he can have ice-cream. He required 2 to 3 staff members to assist him with bathroom at one point. Review of Systems: No CV, , pulmonary, eye, ENT system symptoms on review. Mental Status Exam: The patient is reasonably oriented. I met with him in his room, lying in bed but ready to go for supper. Speech is moderate latency. Often response is monosyllabic. Abstraction fair. Computation impaired. Language function intact. Attention span short. Mood and affect labile, withdrawn. No suicidal or homicidal ideation. Laboratory Data: Reviewed. Impression: Schizoaffective disorder bipolar type mixed with psychotic features. Anxiety disorder unspecified. Impulse control disorder unspecified. Plan: Continue current psychotropics. Assessment: Vital Signs/I&O: Vital Signs Date Time Temp Pulse Resp B/P (MAP) Pulse Ox O2 Delivery O2 Flow Rate FiO2 10/22/20 05:27 98.2 61 16 115/72 (86) 98 10/20/20 06:02 Room Air I & O 10/21/20 10/21/20 10/22/20 15:00 23:00 07:00 Intake Total 480 ml 240 ml Output Total 1 ml Balance 480 ml 239 ml Current Medications: Meds: Current Medications Medications (Trade) Dose Ordered Sig/Lizette Route PRN Reason Start Time Stop Time Status Last Admin Dose Admin Ceftriaxone Sodium 1 gm/ Sodium Chloride 50 ml @ 100 mls/hr 1X ONCE IV 10/16/20 17:00 10/16/20 17:29 DC 10/16/20 17:00 Ceftriaxone Sodium (Rocephin) 1 gm STK-MED ONCE .ROUTE 10/16/20 17:05 10/16/20 17:05 DC Acetaminophen (Tylenol) 650 mg PRN Q4HRS PRN PO MILD PAIN / TEMP > 100.3'F 10/16/20 19:00 Buspirone HCl (Buspar) 10 mg TID PO 10/16/20 21:00 10/22/20 08:32 Calcium Carbonate/ Glycine (Tums) 500 mg PRN Q8HRS PRN PO DYSPEPSIA, 1ST CHOICE 10/16/20 19:00 Diclofenac Sodium (Voltaren) 1 stan BID TP 10/16/20 21:00 10/21/20 20:50 Divalproex Sodium (Depakote) 250 mg TID PO 10/16/20 21:00 10/22/20 08:33 Lactase (Lactaid) 3,000 unit TIDBFRMEAL PO 10/17/20 07:30 10/22/20 08:32 Magnesium Oxide (Magnesium Oxide) 400 mg NOON PO 10/17/20 12:00 10/21/20 12:00 Metoclopramide HCl (Reglan) 10 mg QIDACHS PO 10/16/20 21:00 10/22/20 08:33 Pantoprazole Sodium (Protonix) 40 mg QHS PO 10/16/20 21:00 10/21/20 20:48 Pantoprazole Sodium (Protonix) 40 mg DAILY PO 10/17/20 09:00 UNV Risperidone (RisperDAL) 1 mg QHS PO 10/16/20 21:00 10/18/20 11:47 DC 10/17/20 20:36 Risperidone (RisperDAL) 1.5 mg DAILY PO 10/17/20 09:00 10/22/20 08:33 Sertraline HCl (Zoloft) 200 mg DAILY PO 10/17/20 09:00 10/22/20 08:32 Cephalexin HCl (Keflex) 500 mg BID PO 10/16/20 21:00 10/19/20 16:10 DC 10/19/20 08:07 Loperamide HCl (Imodium) 2 mg PRN Q8HRS PRN PO DIARRHEA 10/16/20 19:00 Acetaminophen (Tylenol) 650 mg PRN Q6HRS PRN PO MILD PAIN / TEMP > 100.3'F 10/16/20 19:45 UNV Multi-Ingredient Ointment (Analgesic [place]) 1 stan PRN QID PRN TP MUSCLE PAIN 10/16/20 19:45 Al Hydroxide/Mg Hydroxide (Mylanta Plus Xs) 15 ml PRN AFTMEALHC PRN PO DYSPEPSIA, 2ND CHOICE 10/16/20 19:45 Magnesium Hydroxide (Milk Of Magnesia) 2,400 mg PRN QHS PRN PO CONSTIPATION 10/16/20 19:45 10/21/20 20:48 Lactobacillus Rhamnosus (Culturelle) 1 cap BID PO 10/17/20 21:00 10/22/20 08:33 Risperidone (RisperDAL) 1.5 mg QHS PO 10/18/20 21:00 10/21/20 20:49 Vitamin D (Vitamin D3) 50,000 unit WEEKLY PO 10/18/20 15:45 10/18/20 15:45 Doxycycline Hyclate (Vibra-Tab) 100 mg BID PO 10/19/20 21:00 10/29/20 22:00 10/22/20 08:32 Trimethoprim/ Sulfamethoxazole (Bactrim Ds) 1 tab BID PO 10/19/20 21:00 10/29/20 22:00 10/22/20 08:33 I have reviewed the current psychotropics carefully including drug interactions. Risk benefit ratio favors no change other than as noted in my dictated progress note. Diagnosis: Problems: (1) Schizoaffective disorder, bipolar type (2) Impulse control disorder, unspecified (3) Anxiety disorder, unspecified (4) Bipolar disorder, current episode mixed, severe, with psychotic features VICTORINA BAR MD Oct 22, 2020 08:44
[2020-10-22] MEDS: MAGNESIUM OXIDE 400 MG TABLET PO SCH (11:50)
--- NOTE | 2020-10-22 15:24 | NUR ---
Nursing note: Patient in dinning room for morning medications & assessment, took pills whole. He denies SI/HI/VH/AH/AH/delusions/pain/discomfort at this time. He self propels in wheel chair. Patient is alert & oriented He is calm, compliant, flat, and isolative to his room. He will only come to day room with high encouragement, does not interact with peers. He is currently in his bed room laying in bed. Plan of care continues, will continue to monitor.
[2020-10-22 16:11] VITALS: BP 121/65
[2020-10-22] MEDS: PANTOPRAZOLE 40 MG TABLET. PO SCH (20:43)
--- NOTE | 2020-10-22 21:58 | PDOC ---
Exam Note: Dandy Note: Please also refer to the separate dictated note~for this date of service dictated separately.~Patient seen individually. Discussed the patient with Nursing staff reviewed the chart.~Reviewed interim history and current functioning. Reviewed vital signs,~Labs/ Radiology~and current medications noted below. Continue current treatment with the changes noted in the dictated addendum note Assessment: Vital Signs/I&O: Vital Signs Date Time Temp Pulse Resp B/P (MAP) Pulse Ox O2 Delivery O2 Flow Rate FiO2 10/22/20 16:11 98.7 70 18 121/65 (83) 95 10/20/20 06:02 Room Air I & O 10/21/20 10/21/20 10/22/20 15:00 23:00 07:00 Intake Total 480 ml 240 ml Output Total 1 ml Balance 480 ml 239 ml Current Medications: Meds: Current Medications Medications (Trade) Dose Ordered Sig/Lizette Route PRN Reason Start Time Stop Time Status Last Admin Dose Admin Ceftriaxone Sodium 1 gm/ Sodium Chloride 50 ml @ 100 mls/hr 1X ONCE IV 10/16/20 17:00 10/16/20 17:29 DC 10/16/20 17:00 Ceftriaxone Sodium (Rocephin) 1 gm STK-MED ONCE .ROUTE 10/16/20 17:05 10/16/20 17:05 DC Acetaminophen (Tylenol) 650 mg PRN Q4HRS PRN PO MILD PAIN / TEMP > 100.3'F 10/16/20 19:00 Buspirone HCl (Buspar) 10 mg TID PO 10/16/20 21:00 10/22/20 20:43 Calcium Carbonate/ Glycine (Tums) 500 mg PRN Q8HRS PRN PO DYSPEPSIA, 1ST CHOICE 10/16/20 19:00 Diclofenac Sodium (Voltaren) 1 stan BID TP 10/16/20 21:00 10/21/20 20:50 Divalproex Sodium (Depakote) 250 mg TID PO 10/16/20 21:00 10/22/20 20:43 Lactase (Lactaid) 3,000 unit TIDBFRMEAL PO 10/17/20 07:30 10/22/20 17:22 Magnesium Oxide (Magnesium Oxide) 400 mg NOON PO 10/17/20 12:00 10/22/20 11:50 Metoclopramide HCl (Reglan) 10 mg QIDACHS PO 10/16/20 21:00 10/22/20 20:43 Pantoprazole Sodium (Protonix) 40 mg QHS PO 10/16/20 21:00 10/22/20 20:43 Pantoprazole Sodium (Protonix) 40 mg DAILY PO 10/17/20 09:00 UNV Risperidone (RisperDAL) 1 mg QHS PO 10/16/20 21:00 10/18/20 11:47 DC 10/17/20 20:36 Risperidone (RisperDAL) 1.5 mg DAILY PO 10/17/20 09:00 10/22/20 08:33 Sertraline HCl (Zoloft) 200 mg DAILY PO 10/17/20 09:00 10/22/20 08:32 Cephalexin HCl (Keflex) 500 mg BID PO 10/16/20 21:00 10/19/20 16:10 DC 10/19/20 08:07 Loperamide HCl (Imodium) 2 mg PRN Q8HRS PRN PO DIARRHEA 10/16/20 19:00 Acetaminophen (Tylenol) 650 mg PRN Q6HRS PRN PO MILD PAIN / TEMP > 100.3'F 10/16/20 19:45 UNV Multi-Ingredient Ointment (Analgesic [place]) 1 stan PRN QID PRN TP MUSCLE PAIN 10/16/20 19:45 Al Hydroxide/Mg Hydroxide (Mylanta Plus Xs) 15 ml PRN AFTMEALHC PRN PO DYSPEPSIA, 2ND CHOICE 10/16/20 19:45 Magnesium Hydroxide (Milk Of Magnesia) 2,400 mg PRN QHS PRN PO CONSTIPATION 10/16/20 19:45 10/21/20 20:48 Lactobacillus Rhamnosus (Culturelle) 1 cap BID PO 10/17/20 21:00 10/22/20 20:43 Risperidone (RisperDAL) 1.5 mg QHS PO 10/18/20 21:00 10/22/20 20:43 Vitamin D (Vitamin D3) 50,000 unit WEEKLY PO 10/18/20 15:45 10/18/20 15:45 Doxycycline Hyclate (Vibra-Tab) 100 mg BID PO 10/19/20 21:00 10/29/20 22:00 10/22/20 20:43 Trimethoprim/ Sulfamethoxazole (Bactrim Ds) 1 tab BID PO 10/19/20 21:00 10/29/20 22:00 10/22/20 20:43 I have reviewed the current psychotropics carefully including drug interactions. Risk benefit ratio favors no change other than as noted in my dictated progress note. Diagnosis: Problems: (1) Schizoaffective disorder, bipolar type (2) Impulse control disorder, unspecified (3) Anxiety disorder, unspecified (4) Bipolar disorder, current episode mixed, severe, with psychotic features VICTORINA BAR MD Oct 22, 2020 21:58
--- NOTE | 2020-10-22 23:01 | NUR ---
Nursing Note Pt up in dayroom, asking to go back to bed. Med compliant and cooperative. No behaviors other than being insistent that he needs to go back to bed.
[2020-10-23 06:18] VITALS: BP 110/68
--- NOTE | 2020-10-23 06:27 | PDOC ---
Exam Note: Dandy Note: This note is a late entry for 10/22/2020 covers elements not covered in my initial note. Subjective: The patient was seen individually in the evening of 10/22/2020 with Glory MADRIGAL, discussed and reviewed the chart. He slept 7-1/2 hours previous night. He has been isolative, spends much time in his room, but I met with him this evening in the dayroom. He has not attended any groups. Review of Systems: No CV, , pulmonary, eye, ENT system symptoms on review. Mental Status Exam: The patient is reasonably oriented. Speech is moderate latency. Often response is monosyllabic. Abstraction fair. Computation impaired. Language function intact. Attention span short. Mood and affect la bile, withdrawn. No suicidal or homicidal ideation. No aggression noted. Laboratory Data: Reviewed. Impression: Schizoaffective disorder bipolar type mixed with psychotic features. Anxiety disorder unspecified. Impulse control disorder unspecified. Plan: Continue current psychotropics. Assessment: Vital Signs/I&O: Vital Signs Date Time Temp Pulse Resp B/P (MAP) Pulse Ox O2 Delivery O2 Flow Rate FiO2 10/23/20 06:18 98.4 70 18 110/68 (82) 94 10/20/20 06:02 Room Air I & O 10/22/20 10/22/20 10/23/20 15:00 23:00 07:00 Intake Total 680 ml 360 ml Balance 680 ml 360 ml Current Medications: Meds: Current Medications Medications (Trade) Dose Ordered Sig/Lizette Route PRN Reason Start Time Stop Time Status Last Admin Dose Admin Ceftriaxone Sodium 1 gm/ Sodium Chloride 50 ml @ 100 mls/hr 1X ONCE IV 10/16/20 17:00 10/16/20 17:29 DC 10/16/20 17:00 Ceftriaxone Sodium (Rocephin) 1 gm STK-MED ONCE .ROUTE 10/16/20 17:05 10/16/20 17:05 DC Acetaminophen (Tylenol) 650 mg PRN Q4HRS PRN PO MILD PAIN / TEMP > 100.3'F 10/16/20 19:00 Buspirone HCl (Buspar) 10 mg TID PO 10/16/20 21:00 10/22/20 20:43 Calcium Carbonate/ Glycine (Tums) 500 mg PRN Q8HRS PRN PO DYSPEPSIA, 1ST CHOICE 10/16/20 19:00 Diclofenac Sodium (Voltaren) 1 stan BID TP 10/16/20 21:00 10/21/20 20:50 Divalproex Sodium (Depakote) 250 mg TID PO 10/16/20 21:00 10/22/20 20:43 Lactase (Lactaid) 3,000 unit TIDBFRMEAL PO 10/17/20 07:30 10/22/20 17:22 Magnesium Oxide (Magnesium Oxide) 400 mg NOON PO 10/17/20 12:00 10/22/20 11:50 Metoclopramide HCl (Reglan) 10 mg QIDACHS PO 10/16/20 21:00 10/22/20 20:43 Pantoprazole Sodium (Protonix) 40 mg QHS PO 10/16/20 21:00 10/22/20 20:43 Pantoprazole Sodium (Protonix) 40 mg DAILY PO 10/17/20 09:00 UNV Risperidone (RisperDAL) 1 mg QHS PO 10/16/20 21:00 10/18/20 11:47 DC 10/17/20 20:36 Risperidone (RisperDAL) 1.5 mg DAILY PO 10/17/20 09:00 10/22/20 08:33 Sertraline HCl (Zoloft) 200 mg DAILY PO 10/17/20 09:00 10/22/20 08:32 Cephalexin HCl (Keflex) 500 mg BID PO 10/16/20 21:00 10/19/20 16:10 DC 10/19/20 08:07 Loperamide HCl (Imodium) 2 mg PRN Q8HRS PRN PO DIARRHEA 10/16/20 19:00 Acetaminophen (Tylenol) 650 mg PRN Q6HRS PRN PO MILD PAIN / TEMP > 100.3'F 10/16/20 19:45 UNV Multi-Ingredient Ointment (Analgesic [place]) 1 stan PRN QID PRN TP MUSCLE PAIN 10/16/20 19:45 Al Hydroxide/Mg Hydroxide (Mylanta Plus Xs) 15 ml PRN AFTMEALHC PRN PO DYSPEPSIA, 2ND CHOICE 10/16/20 19:45 Magnesium Hydroxide (Milk Of Magnesia) 2,400 mg PRN QHS PRN PO CONSTIPATION 10/16/20 19:45 7/4/21 20:48 Lactobacillus Rhamnosus (Culturelle) 1 cap BID PO 10/17/20 21:00 10/22/20 20:43 Risperidone (RisperDAL) 1.5 mg QHS PO 10/18/20 21:00 10/22/20 20:43 Vitamin D (Vitamin D3) 50,000 unit WEEKLY PO 10/18/20 15:45 10/18/20 15:45 Doxycycline Hyclate (Vibra-Tab) 100 mg BID PO 10/19/20 21:00 10/29/20 22:00 10/22/20 20:43 Trimethoprim/ Sulfamethoxazole (Bactrim Ds) 1 tab BID PO 10/19/20 21:00 10/29/20 22:00 10/22/20 20:43 I have reviewed the current psychotropics carefully including drug interactions. Risk benefit ratio favors no change other than as noted in my dictated progress note. Diagnosis: Problems: (1) Schizoaffective disorder, bipolar type (2) Impulse control disorder, unspecified (3) Anxiety disorder, unspecified (4) Bipolar disorder, current episode mixed, severe, with psychotic features VICTORINA BAR MD Oct 23, 2020 06:27
[2020-10-23] MEDS: DIVALPROEX SODIUM 250 MG TABLET.DR. PO SCH ×3 (09:11→20:13)
[2020-10-23] MEDS: SERTRALINE 100 MG TABLET. PO SCH (09:11)
[2020-10-23] MEDS: SMZ/TMP 800/160MG TABLET. PO SCH ×2 (09:11→20:12)
[2020-10-23] MEDS: busPIRone 10 MG TABLET. PO SCH ×3 (09:11→20:12)
[2020-10-23] MEDS: LACTOBACILLUS RHAMNOSUS GG 1 CAPSULE. PO SCH ×2 (09:11→20:13)
[2020-10-23] MEDS: DOXYCYCLINE HYCLATE 100 MG TABLET PO SCH ×2 (09:11→20:10)
[2020-10-23] MEDS: METOCLOPRAMIDE 10 MG TABLET PO SCH ×4 (09:12→20:12)
[2020-10-23] MEDS: LACTASE 3,000 UNIT TABLET PO SCH ×3 (09:12→16:59)
[2020-10-23] MEDS: risperiDONE 1 MG TABLET. PO SCH ×2 (09:13→20:10)
[2020-10-23] MEDS: DICLOFENAC SODIUM 1% TOPICAL GEL 100GM TUBE. TP SCH ×2 (09:17→20:11)
[2020-10-23] MEDS: MAGNESIUM OXIDE 400 MG TABLET PO SCH (11:45)
--- NOTE | 2020-10-23 15:42 | NUR ---
Nursing note: Patient in bed room for morning medications & assessment, took pills whole. He denies SI/HI/VH/AH/AH/delusions/pain/discomfort at this time. He self propels in wheel chair. Patient is alert & oriented He is calm, flat, and isolative to his room. He refused to come to day room with high encouragement, does not interact with peers. He is currently in his bed room laying in bed only getting up for meals. Plan of care continues, will continue to monitor.
[2020-10-23 15:50] VITALS: BP 112/64
[2020-10-23] MEDS: PANTOPRAZOLE 40 MG TABLET. PO SCH (20:12)
--- NOTE | 2020-10-23 21:55 | NUR ---
Patient was resistive to the idea taking a shower but cooperative once he got into his wheelchair to go to shower room. Patient compliant with medications and is polite and pleasant. Patient went to bed immediately after finishing his shower and was in bed most of this shift. It was reported that patient was incontinent of bowel and bladder on day shift in his bed. No incidences of this behavior on HS shift.
--- NOTE | 2020-10-23 22:02 | PDOC ---
Exam Note: Dandy Note: Please also refer to the separate dictated note~for this date of service dictated separately.~Patient seen individually. Discussed the patient with Nursing staff reviewed the chart.~Reviewed interim history and current functioning. Reviewed vital signs,~Labs/ Radiology~and current medications noted below. Continue current treatment with the changes noted in the dictated addendum note Assessment: Vital Signs/I&O: Vital Signs Date Time Temp Pulse Resp B/P (MAP) Pulse Ox O2 Delivery O2 Flow Rate FiO2 10/23/20 15:50 97.1 71 18 112/64 (80) 97 Room Air I & O 10/22/20 10/22/20 10/23/20 15:00 23:00 07:00 Intake Total 680 ml 360 ml Balance 680 ml 360 ml Current Medications: Meds: Current Medications Medications (Trade) Dose Ordered Sig/Lizette Route PRN Reason Start Time Stop Time Status Last Admin Dose Admin Ceftriaxone Sodium 1 gm/ Sodium Chloride 50 ml @ 100 mls/hr 1X ONCE IV 10/16/20 17:00 10/16/20 17:29 DC 10/16/20 17:00 Ceftriaxone Sodium (Rocephin) 1 gm STK-MED ONCE .ROUTE 10/16/20 17:05 10/16/20 17:05 DC Acetaminophen (Tylenol) 650 mg PRN Q4HRS PRN PO MILD PAIN / TEMP > 100.3'F 10/16/20 19:00 Buspirone HCl (Buspar) 10 mg TID PO 10/16/20 21:00 10/23/20 20:12 Calcium Carbonate/ Glycine (Tums) 500 mg PRN Q8HRS PRN PO DYSPEPSIA, 1ST CHOICE 10/16/20 19:00 Diclofenac Sodium (Voltaren) 1 stan BID TP 10/16/20 21:00 10/23/20 20:11 Divalproex Sodium (Depakote) 250 mg TID PO 10/16/20 21:00 10/23/20 20:13 Lactase (Lactaid) 3,000 unit TIDBFRMEAL PO 10/17/20 07:30 10/23/20 16:59 Magnesium Oxide (Magnesium Oxide) 400 mg NOON PO 10/17/20 12:00 10/23/20 11:45 Metoclopramide HCl (Reglan) 10 mg QIDACHS PO 10/16/20 21:00 10/23/20 20:12 Pantoprazole Sodium (Protonix) 40 mg QHS PO 10/16/20 21:00 10/23/20 20:12 Pantoprazole Sodium (Protonix) 40 mg DAILY PO 10/17/20 09:00 UNV Risperidone (RisperDAL) 1 mg QHS PO 10/16/20 21:00 10/18/20 11:47 DC 10/17/20 20:36 Risperidone (RisperDAL) 1.5 mg DAILY PO 10/17/20 09:00 10/23/20 17:54 DC 10/23/20 09:13 Sertraline HCl (Zoloft) 200 mg DAILY PO 10/17/20 09:00 10/23/20 09:11 Cephalexin HCl (Keflex) 500 mg BID PO 10/16/20 21:00 10/19/20 16:10 DC 10/19/20 08:07 Loperamide HCl (Imodium) 2 mg PRN Q8HRS PRN PO DIARRHEA 10/16/20 19:00 Acetaminophen (Tylenol) 650 mg PRN Q6HRS PRN PO MILD PAIN / TEMP > 100.3'F 10/16/20 19:45 UNV Multi-Ingredient Ointment (Analgesic [place]) 1 stan PRN QID PRN TP MUSCLE PAIN 10/16/20 19:45 Al Hydroxide/Mg Hydroxide (Mylanta Plus Xs) 15 ml PRN AFTMEALHC PRN PO DYSPEPSIA, 2ND CHOICE 10/16/20 19:45 Magnesium Hydroxide (Milk Of Magnesia) 2,400 mg PRN QHS PRN PO CONSTIPATION 10/16/20 19:45 10/21/20 20:48 Lactobacillus Rhamnosus (Culturelle) 1 cap BID PO 10/17/20 21:00 10/23/20 20:13 Risperidone (RisperDAL) 1.5 mg QHS PO 10/18/20 21:00 10/23/20 21:00 DC 10/23/20 20:10 Vitamin D (Vitamin D3) 50,000 unit WEEKLY PO 10/18/20 15:45 10/18/20 15:45 Doxycycline Hyclate (Vibra-Tab) 100 mg BID PO 10/19/20 21:00 10/29/20 22:00 10/23/20 20:10 Trimethoprim/ Sulfamethoxazole (Bactrim Ds) 1 tab BID PO 10/19/20 21:00 10/29/20 22:00 10/23/20 20:12 Risperidone (RisperDAL) 3 mg QHS PO 10/24/20 21:00 I have reviewed the current psychotropics carefully including drug interactions. Risk benefit ratio favors no change other than as noted in my dictated progress note. Diagnosis: Problems: (1) Schizoaffective disorder, bipolar type (2) Impulse control disorder, unspecified (3) Anxiety disorder, unspecified (4) Bipolar disorder, current episode mixed, severe, with psychotic features VICTORINA BAR MD Oct 23, 2020 22:02
[2020-10-24 06:03] VITALS: BP 122/78
[2020-10-24 07:16] LABS: BASO % 1 % (0-3); EOS # 0.2 x10^3/uL (0.0-0.7); EOS % 3 % (0-3); HEMOGLOBIN 15.8 g/dL (13.0-17.5); LYMPH # 2.2 x10^3/uL (1.0-4.8); LYMPH % 33 % (24-48); MEAN CORPUSCULAR HEMOGLOBIN 33 pg (25-35); MEAN CORPUSCULAR HGB CONC 34 g/dL (31-37); MEAN CORPUSCULAR VOLUME 98 fL (79-100); MONO # 0.5 x10^3/uL (0.0-1.1); MONO % 8 % (0-9); NEUT # 3.6 x10^3uL (1.8-7.7); NEUT % 56 % (31-73); PLATELET COUNT 242 x10^3/uL (140-400); RED BLOOD COUNT 4.78 x10^6/uL (4.30-5.70); RED CELL DISTRIBUTION WIDTH 13.6 % (11.5-14.5); WHITE BLOOD COUNT 6.5 x10^3/uL (4.0-11.0)
[2020-10-24 07:25] LABS: ALBUMIN 3.5 g/dL (3.4-5.0); ALBUMIN/GLOBULIN RATIO 1.1 (1.0-1.7); CALCIUM 8.8 mg/dL (8.5-10.1); CREATININE 1.2 mg/dL (0.7-1.3); GFR 60.8; POTASSIUM 4.1 mmol/L (3.5-5.1); TOTAL BILIRUBIN 0.5 mg/dL (0.2-1.0); TOTAL PROTEIN 6.8 g/dL (6.4-8.2)
[2020-10-24] MEDS: LACTOBACILLUS RHAMNOSUS GG 1 CAPSULE. PO SCH ×2 (08:13→19:54)
[2020-10-24] MEDS: METOCLOPRAMIDE 10 MG TABLET PO SCH ×3 (08:13→16:12)
[2020-10-24] MEDS: busPIRone 10 MG TABLET. PO SCH ×3 (08:13→19:54)
[2020-10-24] MEDS: SMZ/TMP 800/160MG TABLET. PO SCH ×2 (08:13→19:54)
[2020-10-24] MEDS: SERTRALINE 100 MG TABLET. PO SCH (08:13)
[2020-10-24] MEDS: DOXYCYCLINE HYCLATE 100 MG TABLET PO SCH ×2 (08:13→19:54)
[2020-10-24] MEDS: DIVALPROEX SODIUM 250 MG TABLET.DR. PO SCH ×3 (08:13→19:54)
[2020-10-24] MEDS: LACTASE 3,000 UNIT TABLET PO SCH ×3 (08:13→16:12)
--- NOTE | 2020-10-24 08:51 | PDOC ---
Exam Note: Dandy Note: This note is a late entry for 10/23/2020 covers elements not covered in my initial note. Subjective: The patient was seen individually in the evening of 10/23/2020 with Glory MADRIGAL, discussed and reviewed the chart. He slept 7-1/2 hours previous night. He spends much time in his bed, most of the day. He is on Risperdal 1.5 mg b.i.d. We will change to 3 mg h.s. to help with daytime sedation. I met with him in his room. He was lying in bed, was quite interactive as I visited with him. Review of Systems: No CV, , pulmonary, eye, ENT system symptoms on review. Mental Status Exam: The patient is reasonably oriented. Speech is moderate latency. Often response is monosyllabic. Abstraction fair. Computation impaired. Language function intact. Attention span short. Mood and affect labile, withdrawn. No suicidal or homicidal ideation. Laboratory Data: Reviewed. Impression: Schizoaffective disorder bipolar type mixed with psychotic features. Anxiety disorder unspecified. Impulse control disorder unspecified. Plan: Continue current psychotropics. Assessment: Vital Signs/I&O: Vital Signs Date Time Temp Pulse Resp B/P (MAP) Pulse Ox O2 Delivery O2 Flow Rate FiO2 10/24/20 06:03 97.6 77 18 122/78 (93) 97 Room Air I & O 10/23/20 10/23/20 10/24/20 14:59 22:59 06:59 Intake Total 720 ml 360 ml 120 ml Balance 720 ml 360 ml 120 ml Labs: Laboratory Tests Test 10/24/20 06:20 White Blood Count 6.5 x10^3/uL (4.0-11.0) Red Blood Count 4.78 x10^6/uL (4.30-5.70) Hemoglobin 15.8 g/dL (13.0-17.5) Hematocrit 47.0 % (39.0-53.0) Mean Corpuscular Volume 98 fL (79-100) Mean Corpuscular Hemoglobin 33 pg (25-35) Mean Corpuscular Hemoglobin Concent 34 g/dL (31-37) Red Cell Distribution Width 13.6 % (11.5-14.5) Platelet Count 242 x10^3/uL (140-400) Neutrophils (%) (Auto) 56 % (31-73) Lymphocytes (%) (Auto) 33 % (24-48) Monocytes (%) (Auto) 8 % (0-9) Eosinophils (%) (Auto) 3 % (0-3) Basophils (%) (Auto) 1 % (0-3) Neutrophils # (Auto) 3.6 x10^3uL (1.8-7.7) Lymphocytes # (Auto) 2.2 x10^3/uL (1.0-4.8) Monocytes # (Auto) 0.5 x10^3/uL (0.0-1.1) Eosinophils # (Auto) 0.2 x10^3/uL (0.0-0.7) Basophils # (Auto) 0.0 x10^3/uL (0.0-0.2) Sodium Level 144 mmol/L (136-145) Potassium Level 4.1 mmol/L (3.5-5.1) Chloride Level 106 mmol/L (98-107) Carbon Dioxide Level 30 mmol/L (21-32) Anion Gap 8 (6-14) Blood Urea Nitrogen 17 mg/dL (8-26) Creatinine 1.2 mg/dL (0.7-1.3) Estimated GFR (Cockcroft-Gault) 60.8 BUN/Creatinine Ratio 14 (6-20) Glucose Level 88 mg/dL (70-99) Calcium Level 8.8 mg/dL (8.5-10.1) Total Bilirubin 0.5 mg/dL (0.2-1.0) Aspartate Amino Transferase (AST) 24 U/L (15-37) Alanine Aminotransferase (ALT) 26 U/L (16-63) Alkaline Phosphatase 135 U/L (46-116) H Total Protein 6.8 g/dL (6.4-8.2) Albumin 3.5 g/dL (3.4-5.0) Albumin/Globulin Ratio 1.1 (1.0-1.7) Current Medications: Meds: Laboratory Tests Test 10/24/20 06:20 White Blood Count 6.5 x10^3/uL Red Blood Count 4.78 x10^6/uL Hemoglobin 15.8 g/dL Hematocrit 47.0 % Mean Corpuscular Volume 98 fL Mean Corpuscular Hemoglobin 33 pg Mean Corpuscular Hemoglobin Concent 34 g/dL Red Cell Distribution Width 13.6 % Platelet Count 242 x10^3/uL Neutrophils (%) (Auto) 56 % Lymphocytes (%) (Auto) 33 % Monocytes (%) (Auto) 8 % Eosinophils (%) (Auto) 3 % Basophils (%) (Auto) 1 % Neutrophils # (Auto) 3.6 x10^3uL Lymphocytes # (Auto) 2.2 x10^3/uL Monocytes # (Auto) 0.5 x10^3/uL Eosinophils # (Auto) 0.2 x10^3/uL Basophils # (Auto) 0.0 x10^3/uL Sodium Level 144 mmol/L Potassium Level 4.1 mmol/L Chloride Level 106 mmol/L Carbon Dioxide Level 30 mmol/L Anion Gap 8 Blood Urea Nitrogen 17 mg/dL Creatinine 1.2 mg/dL Estimated GFR (Cockcroft-Gault) 60.8 BUN/Creatinine Ratio 14 Glucose Level 88 mg/dL Calcium Level 8.8 mg/dL Total Bilirubin 0.5 mg/dL Aspartate Amino Transf (AST/SGOT) 24 U/L Alanine Aminotransferase (ALT/SGPT) 26 U/L Alkaline Phosphatase 135 U/L Total Protein 6.8 g/dL Albumin 3.5 g/dL Albumin/Globulin Ratio 1.1 Current Medications Medications (Trade) Dose Ordered Sig/Lizette Route PRN Reason Start Time Stop Time Status Last Admin Dose Admin Ceftriaxone Sodium 1 gm/ Sodium Chloride 50 ml @ 100 mls/hr 1X ONCE IV 10/16/20 17:00 10/16/20 17:29 DC 10/16/20 17:00 Ceftriaxone Sodium (Rocephin) 1 gm STK-MED ONCE .ROUTE 10/16/20 17:05 10/16/20 17:05 DC Acetaminophen (Tylenol) 650 mg PRN Q4HRS PRN PO MILD PAIN / TEMP > 100.3'F 10/16/20 19:00 Buspirone HCl (Buspar) 10 mg TID PO 10/16/20 21:00 10/24/20 08:13 Calcium Carbonate/ Glycine (Tums) 500 mg PRN Q8HRS PRN PO DYSPEPSIA, 1ST CHOICE 10/16/20 19:00 Diclofenac Sodium (Voltaren) 1 stan BID TP 10/16/20 21:00 10/23/20 20:11 Divalproex Sodium (Depakote) 250 mg TID PO 10/16/20 21:00 10/24/20 08:13 Lactase (Lactaid) 3,000 unit TIDBFRMEAL PO 10/17/20 07:30 10/24/20 08:13 Magnesium Oxide (Magnesium Oxide) 400 mg NOON PO 10/17/20 12:00 10/23/20 11:45 Metoclopramide HCl (Reglan) 10 mg QIDACHS PO 10/16/20 21:00 10/24/20 08:13 Pantoprazole Sodium (Protonix) 40 mg QHS PO 10/16/20 21:00 10/23/20 20:12 Pantoprazole Sodium (Protonix) 40 mg DAILY PO 10/17/20 09:00 UNV Risperidone (RisperDAL) 1 mg QHS PO 10/16/20 21:00 10/18/20 11:47 DC 10/17/20 20:36 Risperidone (RisperDAL) 1.5 mg DAILY PO 10/17/20 09:00 10/23/20 17:54 DC 10/23/20 09:13 Sertraline HCl (Zoloft) 200 mg DAILY PO 10/17/20 09:00 10/24/20 08:13 Cephalexin HCl (Keflex) 500 mg BID PO 10/16/20 21:00 10/19/20 16:10 DC 10/19/20 08:07 Loperamide HCl (Imodium) 2 mg PRN Q8HRS PRN PO DIARRHEA 10/16/20 19:00 Acetaminophen (Tylenol) 650 mg PRN Q6HRS PRN PO MILD PAIN / TEMP > 100.3'F 10/16/20 19:45 UNV Multi-Ingredient Ointment (Analgesic Chase) 1 stan PRN QID PRN TP MUSCLE PAIN 10/16/20 19:45 Al Hydroxide/Mg Hydroxide (Mylanta Plus Xs) 15 ml PRN AFTMEALHC PRN PO DYSPEPSIA, 2ND CHOICE 10/16/20 19:45 Magnesium Hydroxide (Milk Of Magnesia) 2,400 mg PRN QHS PRN PO CONSTIPATION 10/16/20 19:45 10/21/20 20:48 Lactobacillus Rhamnosus (Culturelle) 1 cap BID PO 10/17/20 21:00 10/24/20 08:13 Risperidone (RisperDAL) 1.5 mg QHS PO 10/18/20 21:00 10/23/20 21:00 DC 10/23/20 20:10 Vitamin D (Vitamin D3) 50,000 unit WEEKLY PO 10/18/20 15:45 10/18/20 15:45 Doxycycline Hyclate (Vibra-Tab) 100 mg BID PO 10/19/20 21:00 10/29/20 22:00 10/24/20 08:13 Trimethoprim/ Sulfamethoxazole (Bactrim Ds) 1 tab BID PO 10/19/20 21:00 10/29/20 22:00 10/24/20 08:13 Risperidone (RisperDAL) 3 mg QHS PO 10/24/20 21:00 I have reviewed the current psychotropics carefully including drug interactions. Risk benefit ratio favors no change other than as noted in my dictated progress note. Diagnosis: Problems: (1) Schizoaffective disorder, bipolar type (2) Impulse control disorder, unspecified (3) Anxiety disorder, unspecified (4) Bipolar disorder, current episode mixed, severe, with psychotic features VICTORINA BAR MD Oct 24, 2020 08:51
--- NOTE | 2020-10-24 08:51 | NUR ---
Pt ate all of his breakfast and was observed eating the food off the half-eaten tray of another patient, including using her used eating utensils. Tray removed from pt and instructed to not consume other patient's half eaten food or use their dinnerware d/t infection control purposes.
[2020-10-24] MEDS: DICLOFENAC SODIUM 1% TOPICAL GEL 100GM TUBE. TP SCH ×2 (09:00→19:57)
--- NOTE | 2020-10-24 09:58 | NUR ---
Pt has been visible on the unit this morning. He ate all of breakfast and a portion of another patient's breakfast (see previous note). He is compliant with whole medications. Absent of SI/HI/VH/AH/delusions, he denies pain when asked. No aggressive/sexual behaviors displayed towards others, he is appropriate with his interactions with others. Plan of care continues, will pass to next shift.
[2020-10-24] MEDS: MAGNESIUM OXIDE 400 MG TABLET PO SCH (12:00)
--- NOTE | 2020-10-24 15:10 | NUR ---
HERBIE Wolfe reports that a strong smell of BM was coming from pt's room. Upon entering she observed pt in bed with BM all over his hands and blankets. A large pile of BM was observed between the bed and the wall. It appears as if pt is having BM while laying in bed and putting it between the wall and the bed. When asked why he wasn't getting out of bed to utilize the toilet pt replied, "I don't know." Pt was provided with clean pants and brief which he demonstrated ability to change his own clothing ind without assistance. Hands were also washed and blankets changed. Pt brought out to day room in w/ for the remainder of the day.
--- NOTE | 2020-10-24 16:03 | NUR ---
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 Pt also has unstageable PU to plantar aspect of left 2nd toe. Measured, assessed and dressed wound. Treatment Recommendations/Plan: hydrocolloid and foam to right hip, recommend to change every 3 days and PRN. Left 2nd toe- iodoflex and bandaid, change every other day and PRN. Additional dressings left in pt photo chart. Education provided: PU prevention, recommend to stay off right hip, pt will need reinforcement of teaching due to mental status. Offloading surface/device: TQ2H, limit walking on toe Recommended Referrals/Tests: arterial study of left leg and surgical consult Discharge Recommendations for dressings: continue as above noted
[2020-10-24 16:19] VITALS: BP 153/74
[2020-10-24] MEDS: PANTOPRAZOLE 40 MG TABLET. PO SCH (19:54)
[2020-10-24] MEDS: risperiDONE 1 MG TABLET. PO SCH (19:55)
--- NOTE | 2020-10-24 21:43 | PDOC ---
Exam Note: Dandy Note: Please also refer to the separate dictated note~for this date of service dictated separately.~Patient seen individually. Discussed the patient with Nursing staff reviewed the chart.~Reviewed interim history and current functioning. Reviewed vital signs,~Labs/ Radiology~and current medications noted below. Continue current treatment with the changes noted in the dictated addendum note Assessment: Vital Signs/I&O: Vital Signs Date Time Temp Pulse Resp B/P (MAP) Pulse Ox O2 Delivery O2 Flow Rate FiO2 10/24/20 16:19 98.2 63 20 153/74 (100) 99 10/24/20 06:03 Room Air I & O 10/23/20 10/23/20 10/24/20 14:59 22:59 06:59 Intake Total 720 ml 360 ml 120 ml Balance 720 ml 360 ml 120 ml Labs: Laboratory Tests Test 10/24/20 06:20 White Blood Count 6.5 x10^3/uL (4.0-11.0) Red Blood Count 4.78 x10^6/uL (4.30-5.70) Hemoglobin 15.8 g/dL (13.0-17.5) Hematocrit 47.0 % (39.0-53.0) Mean Corpuscular Volume 98 fL (79-100) Mean Corpuscular Hemoglobin 33 pg (25-35) Mean Corpuscular Hemoglobin Concent 34 g/dL (31-37) Red Cell Distribution Width 13.6 % (11.5-14.5) Platelet Count 242 x10^3/uL (140-400) Neutrophils (%) (Auto) 56 % (31-73) Lymphocytes (%) (Auto) 33 % (24-48) Monocytes (%) (Auto) 8 % (0-9) Eosinophils (%) (Auto) 3 % (0-3) Basophils (%) (Auto) 1 % (0-3) Neutrophils # (Auto) 3.6 x10^3uL (1.8-7.7) Lymphocytes # (Auto) 2.2 x10^3/uL (1.0-4.8) Monocytes # (Auto) 0.5 x10^3/uL (0.0-1.1) Eosinophils # (Auto) 0.2 x10^3/uL (0.0-0.7) Basophils # (Auto) 0.0 x10^3/uL (0.0-0.2) Sodium Level 144 mmol/L (136-145) Potassium Level 4.1 mmol/L (3.5-5.1) Chloride Level 106 mmol/L (98-107) Carbon Dioxide Level 30 mmol/L (21-32) Anion Gap 8 (6-14) Blood Urea Nitrogen 17 mg/dL (8-26) Creatinine 1.2 mg/dL (0.7-1.3) Estimated GFR (Cockcroft-Gault) 60.8 BUN/Creatinine Ratio 14 (6-20) Glucose Level 88 mg/dL (70-99) Calcium Level 8.8 mg/dL (8.5-10.1) Total Bilirubin 0.5 mg/dL (0.2-1.0) Aspartate Amino Transferase (AST) 24 U/L (15-37) Alanine Aminotransferase (ALT) 26 U/L (16-63) Alkaline Phosphatase 135 U/L (46-116) H Total Protein 6.8 g/dL (6.4-8.2) Albumin 3.5 g/dL (3.4-5.0) Albumin/Globulin Ratio 1.1 (1.0-1.7) Current Medications: Meds: Laboratory Tests Test 10/24/20 06:20 White Blood Count 6.5 x10^3/uL Red Blood Count 4.78 x10^6/uL Hemoglobin 15.8 g/dL Hematocrit 47.0 % Mean Corpuscular Volume 98 fL Mean Corpuscular Hemoglobin 33 pg Mean Corpuscular Hemoglobin Concent 34 g/dL Red Cell Distribution Width 13.6 % Platelet Count 242 x10^3/uL Neutrophils (%) (Auto) 56 % Lymphocytes (%) (Auto) 33 % Monocytes (%) (Auto) 8 % Eosinophils (%) (Auto) 3 % Basophils (%) (Auto) 1 % Neutrophils # (Auto) 3.6 x10^3uL Lymphocytes # (Auto) 2.2 x10^3/uL Monocytes # (Auto) 0.5 x10^3/uL Eosinophils # (Auto) 0.2 x10^3/uL Basophils # (Auto) 0.0 x10^3/uL Sodium Level 144 mmol/L Potassium Level 4.1 mmol/L Chloride Level 106 mmol/L Carbon Dioxide Level 30 mmol/L Anion Gap 8 Blood Urea Nitrogen 17 mg/dL Creatinine 1.2 mg/dL Estimated GFR (Cockcroft-Gault) 60.8 BUN/Creatinine Ratio 14 Glucose Level 88 mg/dL Calcium Level 8.8 mg/dL Total Bilirubin 0.5 mg/dL Aspartate Amino Transf (AST/SGOT) 24 U/L Alanine Aminotransferase (ALT/SGPT) 26 U/L Alkaline Phosphatase 135 U/L Total Protein 6.8 g/dL Albumin 3.5 g/dL Albumin/Globulin Ratio 1.1 Current Medications Medications (Trade) Dose Ordered Sig/Lizette Route PRN Reason Start Time Stop Time Status Last Admin Dose Admin Ceftriaxone Sodium 1 gm/ Sodium Chloride 50 ml @ 100 mls/hr 1X ONCE IV 10/16/20 17:00 10/16/20 17:29 DC 10/16/20 17:00 Ceftriaxone Sodium (Rocephin) 1 gm STK-MED ONCE .ROUTE 10/16/20 17:05 10/16/20 17:05 DC Acetaminophen (Tylenol) 650 mg PRN Q4HRS PRN PO MILD PAIN / TEMP > 100.3'F 10/16/20 19:00 Buspirone HCl (Buspar) 10 mg TID PO 10/16/20 21:00 10/24/20 19:54 Calcium Carbonate/ Glycine (Tums) 500 mg PRN Q8HRS PRN PO DYSPEPSIA, 1ST CHOICE 10/16/20 19:00 Diclofenac Sodium (Voltaren) 1 stan BID TP 10/16/20 21:00 10/24/20 19:57 Divalproex Sodium (Depakote) 250 mg TID PO 10/16/20 21:00 10/24/20 19:54 Lactase (Lactaid) 3,000 unit TIDBFRMEAL PO 10/17/20 07:30 10/24/20 16:12 Magnesium Oxide (Magnesium Oxide) 400 mg NOON PO 10/17/20 12:00 10/24/20 12:00 Metoclopramide HCl (Reglan) 10 mg QIDACHS PO 10/16/20 21:00 10/24/20 19:48 DC 10/24/20 16:12 Pantoprazole Sodium (Protonix) 40 mg QHS PO 10/16/20 21:00 10/24/20 19:54 Pantoprazole Sodium (Protonix) 40 mg DAILY PO 10/17/20 09:00 UNV Risperidone (RisperDAL) 1 mg QHS PO 10/16/20 21:00 10/18/20 11:47 DC 10/17/20 20:36 Risperidone (RisperDAL) 1.5 mg DAILY PO 10/17/20 09:00 10/23/20 17:54 DC 10/23/20 09:13 Sertraline HCl (Zoloft) 200 mg DAILY PO 10/17/20 09:00 10/24/20 16:49 DC 10/24/20 08:13 Cephalexin HCl (Keflex) 500 mg BID PO 10/16/20 21:00 10/19/20 16:10 DC 10/19/20 08:07 Loperamide HCl (Imodium) 2 mg PRN Q8HRS PRN PO DIARRHEA 10/16/20 19:00 Acetaminophen (Tylenol) 650 mg PRN Q6HRS PRN PO MILD PAIN / TEMP > 100.3'F 10/16/20 19:45 UNV Multi-Ingredient Ointment (Analgesic [place]) 1 stan PRN QID PRN TP MUSCLE PAIN 10/16/20 19:45 Al Hydroxide/Mg Hydroxide (Mylanta Plus Xs) 15 ml PRN AFTMEALHC PRN PO DYSPEPSIA, 2ND CHOICE 10/16/20 19:45 Magnesium Hydroxide (Milk Of Magnesia) 2,400 mg PRN QHS PRN PO CONSTIPATION 10/16/20 19:45 10/21/20 20:48 Lactobacillus Rhamnosus (Culturelle) 1 cap BID PO 10/17/20 21:00 10/24/20 19:54 Risperidone (RisperDAL) 1.5 mg QHS PO 10/18/20 21:00 10/23/20 21:00 DC 10/23/20 20:10 Vitamin D (Vitamin D3) 50,000 unit WEEKLY PO 10/18/20 15:45 10/18/20 15:45 Doxycycline Hyclate (Vibra-Tab) 100 mg BID PO 10/19/20 21:00 10/29/20 22:00 10/24/20 19:54 Trimethoprim/ Sulfamethoxazole (Bactrim Ds) 1 tab BID PO 10/19/20 21:00 10/29/20 22:00 10/24/20 19:54 Risperidone (RisperDAL) 3 mg QHS PO 10/24/20 21:00 10/24/20 19:55 Bupropion HCl (Wellbutrin Xl) 150 mg DAILY PO 10/25/20 09:00 10/26/20 21:00 Bupropion HCl (Wellbutrin Xl) 300 mg DAILY PO 10/27/20 09:00 Current Medications Medications (Trade) Dose Ordered Sig/Lizette Route PRN Reason Start Time Stop Time Status Last Admin Dose Admin Risperidone (RisperDAL) 3 mg QHS PO 10/24/20 21:00 10/24/20 19:55 I have reviewed the current psychotropics carefully including drug interactions. Risk benefit ratio favors no change other than as noted in my dictated progress note. Diagnosis: Problems: (1) Schizoaffective disorder, bipolar type (2) Impulse control disorder, unspecified (3) Anxiety disorder, unspecified (4) Bipolar disorder, current episode mixed, severe, with psychotic features VICTORINA BAR MD Oct 24, 2020 21:42
--- NOTE | 2020-10-24 22:06 | NUR ---
Patient was asleep in a peers bed when this nurse arrived on shift. Patient was compliant with medications and is interactive when approached. Nurse assisted patient to get into his own bed where he remained in bed until bedtime. Patient was observed to be laying on his right hip. Nurse reminded him to stay off that hip r/t wound on the hip. Patient then rolled over onto left side. No adverse behaviors noted to this point in this shift.
[2020-10-25 05:56] VITALS: BP 107/62
--- NOTE | 2020-10-25 06:28 | NUR ---
Patients urine had a "sweet smell" this morning. Blood sugar checked and it was 85. Will pass on in report.
--- NOTE | 2020-10-25 06:31 | PDOC ---
Exam Note: Dandy Note: This note is a late entry for 10/24/2020 covers elements not covered in my initial note. Subjective: The patient was seen individually in the evening of 10/24/2020 with Raven MADRIGAL, discussed and reviewed the chart. He slept 4-1/4 hours previous night. The patient has been withdrawn. He is much encouraged to come out of bed. He had bowel movement in his bed and had smeared all over on the wall, bed-sheets, his fingernails and blanket. Staff is making consistent efforts to have him come out of his room. Review of Systems: No CV, , pulmonary, eye, ENT system symptoms on review. Mental Status Exam: The patient is reasonably oriented. He was lying in bed. I discussed with him at some length about coming out of his room. He was fixated on discharge plans and I addressed with him. Speech is moderate latency . Often response is monosyllabic. Abstraction fair. Computation impaired. Language function intact. Attention span short. Mood and affect labile, withdrawn. No suicidal or homicidal ideation. Laboratory Data: Reviewed. Impression: Schizoaffective disorder bipolar type mixed with psychotic features. Anxiety disorder unspecified. Impulse control disorder unspecified. Plan: Continue current psychotropics. We will change the patients Zoloft 200 mg a day to Wellbutrin XL 150 mg a day for 2 days, then 300 mg a day after that. His Risperdal 1.5 mg b.i.d. has been changed to 3 mg b.i.d. Continue BuSpar and Depakote unchanged. Adjust further as clinically indicated. Assessment: Vital Signs/I&O: Vital Signs Date Time Temp Pulse Resp B/P (MAP) Pulse Ox O2 Delivery O2 Flow Rate FiO2 10/25/20 05:56 96.4 76 18 107/62 (77) 93 Room Air I & O 10/24/20 10/24/20 10/25/20 15:00 23:00 07:00 Intake Total 600 ml 480 ml Balance 600 ml 480 ml Labs: Laboratory Tests Test 10/25/20 05:55 Glucose (Fingerstick) 85 mg/dL (70-99) Current Medications: Meds: Laboratory Tests Test 10/25/20 05:55 Glucose (Fingerstick) 85 mg/dL Current Medications Medications (Trade) Dose Ordered Sig/Lizette Route PRN Reason Start Time Stop Time Status Last Admin Dose Admin Ceftriaxone Sodium 1 gm/ Sodium Chloride 50 ml @ 100 mls/hr 1X ONCE IV 10/16/20 17:00 10/16/20 17:29 DC 10/16/20 17:00 Ceftriaxone Sodium (Rocephin) 1 gm STK-MED ONCE .ROUTE 10/16/20 17:05 10/16/20 17:05 DC Acetaminophen (Tylenol) 650 mg PRN Q4HRS PRN PO MILD PAIN / TEMP > 100.3'F 10/16/20 19:00 Buspirone HCl (Buspar) 10 mg TID PO 10/16/20 21:00 10/24/20 19:54 Calcium Carbonate/ Glycine (Tums) 500 mg PRN Q8HRS PRN PO DYSPEPSIA, 1ST CHOICE 10/16/20 19:00 Diclofenac Sodium (Voltaren) 1 stan BID TP 10/16/20 21:00 10/24/20 19:57 Divalproex Sodium (Depakote) 250 mg TID PO 10/16/20 21:00 10/24/20 19:54 Lactase (Lactaid) 3,000 unit TIDBFRMEAL PO 10/17/20 07:30 10/24/20 16:12 Magnesium Oxide (Magnesium Oxide) 400 mg NOON PO 10/17/20 12:00 10/24/20 12:00 Metoclopramide HCl (Reglan) 10 mg QIDACHS PO 10/16/20 21:00 10/24/20 19:48 DC 10/24/20 16:12 Pantoprazole Sodium (Protonix) 40 mg QHS PO 10/16/20 21:00 10/24/20 19:54 Pantoprazole Sodium (Protonix) 40 mg DAILY PO 10/17/20 09:00 UNV Risperidone (RisperDAL) 1 mg QHS PO 10/16/20 21:00 10/18/20 11:47 DC 10/17/20 20:36 Risperidone (RisperDAL) 1.5 mg DAILY PO 10/17/20 09:00 10/23/20 17:54 DC 10/23/20 09:13 Sertraline HCl (Zoloft) 200 mg DAILY PO 10/17/20 09:00 10/24/20 16:49 DC 10/24/20 08:13 Cephalexin HCl (Keflex) 500 mg BID PO 10/16/20 21:00 10/19/20 16:10 DC 10/19/20 08:07 Loperamide HCl (Imodium) 2 mg PRN Q8HRS PRN PO DIARRHEA 10/16/20 19:00 Acetaminophen (Tylenol) 650 mg PRN Q6HRS PRN PO MILD PAIN / TEMP > 100.3'F 10/16/20 19:45 UNV Multi-Ingredient Ointment (Analgesic [place]) 1 stan PRN QID PRN TP MUSCLE PAIN 10/16/20 19:45 Al Hydroxide/Mg Hydroxide (Mylanta Plus Xs) 15 ml PRN AFTMEALHC PRN PO DYSPEPSIA, 2ND CHOICE 10/16/20 19:45 Magnesium Hydroxide (Milk Of Magnesia) 2,400 mg PRN QHS PRN PO CONSTIPATION 10/16/20 19:45 10/21/20 20:48 Lactobacillus Rhamnosus (Culturelle) 1 cap BID PO 10/17/20 21:00 10/24/20 19:54 Risperidone (RisperDAL) 1.5 mg QHS PO 10/18/20 21:00 10/23/20 21:00 DC 10/23/20 20:10 Vitamin D (Vitamin D3) 50,000 unit WEEKLY PO 10/18/20 15:45 10/18/20 15:45 Doxycycline Hyclate (Vibra-Tab) 100 mg BID PO 10/19/20 21:00 10/29/20 22:00 10/24/20 19:54 Trimethoprim/ Sulfamethoxazole (Bactrim Ds) 1 tab BID PO 10/19/20 21:00 10/29/20 22:00 10/24/20 19:54 Risperidone (RisperDAL) 3 mg QHS PO 10/24/20 21:00 10/24/20 19:55 Bupropion HCl (Wellbutrin Xl) 150 mg DAILY PO 10/25/20 09:00 10/26/20 21:00 Bupropion HCl (Wellbutrin Xl) 300 mg DAILY PO 10/27/20 09:00 Current Medications Medications (Trade) Dose Ordered Sig/Lizette Route PRN Reason Start Time Stop Time Status Last Admin Dose Admin Risperidone (RisperDAL) 3 mg QHS PO 10/24/20 21:00 7/7/21 19:55 I have reviewed the current psychotropics carefully including drug interactions. Risk benefit ratio favors no change other than as noted in my dictated progress note. Diagnosis: Problems: (1) Schizoaffective disorder, bipolar type (2) Impulse control disorder, unspecified (3) Anxiety disorder, unspecified (4) Bipolar disorder, current episode mixed, severe, with psychotic features VICTORINA BAR MD Oct 25, 2020 06:31
[2020-10-25] MEDS: LACTOBACILLUS RHAMNOSUS GG 1 CAPSULE. PO SCH ×2 (08:08→20:10)
[2020-10-25] MEDS: DOXYCYCLINE HYCLATE 100 MG TABLET PO SCH ×2 (08:08→20:10)
[2020-10-25] MEDS: buPROPion XL 150 MG TAB.ER.24H PO SCH (08:08)
[2020-10-25] MEDS: SMZ/TMP 800/160MG TABLET. PO SCH ×2 (08:08→20:10)
[2020-10-25] MEDS: busPIRone 10 MG TABLET. PO SCH ×3 (08:08→20:10)
[2020-10-25] MEDS: LACTASE 3,000 UNIT TABLET PO SCH ×3 (08:08→17:12)
[2020-10-25] MEDS: DIVALPROEX SODIUM 250 MG TABLET.DR. PO SCH ×3 (08:08→20:10)
[2020-10-25] MEDS: DICLOFENAC SODIUM 1% TOPICAL GEL 100GM TUBE. TP SCH ×2 (08:09→20:09)
[2020-10-25] MEDS: CHOLECALCIFEROL (VITAMIN D3) 50,000 UNIT CAPSULE PO SCH (08:11)
[2020-10-25] MEDS: MAGNESIUM OXIDE 400 MG TABLET PO SCH (12:00)
--- NOTE | 2020-10-25 12:12 | TX PLAN ---
Interdisciplinary Tx Plan Admission Information Oct 16, 2020 at 18:00 Legal Status (on Admission): Voluntary DPOA/Guardian Name: Sister/DPOA-Carolina Sanchez Contact Other Contact Name: Adan Other Contact [phone] Verified Code Status: Full Code Allergies: Coded Allergies: lactose (Verified Allergy, Unknown, Diarrhea, 10/16/20) IN reports extreme GI upset, explosive stools if patient gets any lactose. Diagnoses Primary Diagnosis: (1) Impulse control disorder, unspecified (2) Anxiety disorder, unspecified (3) Bipolar disorder, current episode mixed, severe, with psychotic features (4) Schizoaffective disorder, bipolar type Reasons for Admission: Aggressive, Agitated, Depressed, Angry, Combative, Isolating, Poor impulse control Problem in Patient's Words: Per pt, "I don't know why I'm here." Per DPOA/Sister, Carolina, pt will deny the reasoning for his admission. He never really used to lie that I was aware of, but he just doesn't accept ownership. Carolina also reports that in pt's history he went through a pretty rough divorce because he had found out that he couldn't have children and his apparently really wanted children. Consequently, they ended up and he seemed to slip into depression and eventually lost his job. "I don't think he really ever recovered from that." Carolina describes him as becoming a loner. Additional Admission Comments: Per intake record, throwing self on floor, lacks motivation, physically and verbally aggressive toward staff, refuses cares and lays in urine/feces, agitated, threw walker at staff, yells at peers. Problems Active Problems: Agitated, isolates, demonstrates depression, flat affect, denies symptoms/lacks insight into mental health needs Inactive Problems: combative, aggressive Pt Strengths/Limitations Ability for [place] [employer]: Poor Cognitive Functioning/Ability: Fair Communication Skills/Ability: Fair Financial Resources: Poor Insight/Judgement: Poor Intellectual Ability: Fair Physical Health: Poor Social Skills: Fair Stability in Family: Fair Stability in School/Work: Fair Verbal Skills: Fair Discharge Criteria Discharge Criteria: Adequate arrangements @DC, Adequate self-care, Verbal commit med comply, Improved mood/thought Other Discharge Comments: None noted Preliminary Discharge Plan Preliminary DC Plan: Current Living Arrange. Special Precautions Special Precautions: Agitation/Assault Fall Risk: Moderate Initial D/C Plan Plan is for pt to return to his facility at [facility] Identified Discharge Needs: None noted Currently Utilized Resources Currently Utilized Resources/P: [facility]contact [facility] Kathleen or Cyn Referrals Community Resources: None noted at this time. Identified Problems/Hx/Goals Objectives/Short-Term Goals Short Term Goals: Control abnormal behavior, Dec. Aggression, Decrease Isolation, Dec. Outbursts, Dec. Symp. Depression, Improved Social Skills, Medication Stabilization, Monitor Med Effects, Promote Coping Skill Short Term Goals in Patient's: To demonstrate less depression,agitation, aggression, and be more compliant with self-cares along with respectful to others. Interventions/Frequency Staff Interventions/Frequency&: Psychiatry to assess pt three times per week for medication management. Nursing to assess behaviors, monitor medications, and complete 15 minute checks daily. Social work to see pt at least two times weekly to aid in return to placement. Activities to encourage pt to participate in group activities daily. 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 Education: Pt reports that he graduated high school from [place], [place] and he completed [employer] school in [place], [place]. Community Follow-up PCP Community Provider/Family Inpu: Pt sister/DPALDAIR aware of pt hospitalization and is available for further information as needed. Treatment Plan Explained Patient/Pressure Vessel Inspector had this treatment plan explained to him/her as indicated by the signature below and has been given the opportunity to ask questions and make suggestions: Date: Patient/Pressure Vessel Inspector Signature: Status Update Update Pt eats 100% of his meals and gets at least 7 hours of sleep at night; most likely more d/t him isolating mostly to his room. Pt This past week he has been found laying in his feces and staff also discovered that it was between his mattress and wall. Pt will interact some with staff, but keeps mainly to himself and shows little interest in anything. Pt's Wellbutrin was increased. [email or web address] once stable. ROSE RUANO Oct 25, 2020 12:12
--- NOTE | 2020-10-25 12:44 | NUR ---
WEEKLY ACTIVITY THERAPY NOTE Date of Admission: 10/16/20 Date of AT Assessment: 10/18 Precipitating behaviors that initiated intake and admission: throwing self on floor, lacks motivation, physically & verbally aggressive towards staff, refuses cares & lays in urine & feces, agitated, threw walker at staff, yells at peers Goal aimed: to increase engagement Initial Goal: Pt. will participate in at least three individual or Activity Therapy groups before discharge. Weekly progress towards goal: on track(10/24-chocolate milkshakes and fun facts) Group participation level: 1 min Weekly highlights: accepted milkshake Thursday afternoon Behaviors observed: withdrawn to room. limited to no interest in groups Plan: no change to goal Beneficial adaptations: food
--- NOTE | 2020-10-25 14:04 | NUR ---
Nursing Note: Pt. has been withdrawn, had a flat affect, and seemed irritable throughout the day. He was medication compliant. Pt. took his morning medications and then the UNIFORMS SALES REPRESENTATIVE's helped him with a shower. He was irritated when they encouraged him to stay out of bed and to participate in group. He did finally agree to stay up and came to the day room. He stayed quiet in the day room and kept mostly to himself.
[2020-10-25 16:07] VITALS: BP 133/75
[2020-10-25] MEDS: PANTOPRAZOLE 40 MG TABLET. PO SCH (20:10)
[2020-10-25] MEDS: risperiDONE 1 MG TABLET. PO SCH (20:11)
--- NOTE | 2020-10-25 21:13 | NUR ---
Patient has been in bed this shift. He was calm and pleasant when nurse woke him up to take his HS medications. Patient was encouraged to get out of bed and spend time in the day room but he declined. Patient stated that he wants to discharge before the [employer] start November 09 because he enjoys watching them on tv. Nurse again encouraged patient to stay up during the days and participate in the activities.
--- NOTE | 2020-10-25 22:15 | PDOC ---
Exam Note: Dandy Note: Please also refer to the separate dictated note~for this date of service dictated separately.~Patient seen individually. Discussed the patient with Nursing staff reviewed the chart.~Reviewed interim history and current functioning. Reviewed vital signs,~Labs/ Radiology~and current medications noted below. Continue current treatment with the changes noted in the dictated addendum note Assessment: Vital Signs/I&O: Vital Signs Date Time Temp Pulse Resp B/P (MAP) Pulse Ox O2 Delivery O2 Flow Rate FiO2 10/25/20 16:07 97.1 75 18 133/75 (94) 98 10/25/20 05:56 Room Air I & O 10/24/20 10/24/20 10/25/20 15:00 23:00 07:00 Intake Total 600 ml 480 ml Balance 600 ml 480 ml Labs: Laboratory Tests Test 10/25/20 05:55 Glucose (Fingerstick) 85 mg/dL (70-99) Current Medications: Meds: Laboratory Tests Test 10/25/20 05:55 Glucose (Fingerstick) 85 mg/dL Current Medications Medications (Trade) Dose Ordered Sig/Lizette Route PRN Reason Start Time Stop Time Status Last Admin Dose Admin Ceftriaxone Sodium 1 gm/ Sodium Chloride 50 ml @ 100 mls/hr 1X ONCE IV 10/16/20 17:00 10/16/20 17:29 DC 10/16/20 17:00 Ceftriaxone Sodium (Rocephin) 1 gm STK-MED ONCE .ROUTE 10/16/20 17:05 10/16/20 17:05 DC Acetaminophen (Tylenol) 650 mg PRN Q4HRS PRN PO MILD PAIN / TEMP > 100.3'F 10/16/20 19:00 Buspirone HCl (Buspar) 10 mg TID PO 10/16/20 21:00 10/25/20 20:10 Calcium Carbonate/ Glycine (Tums) 500 mg PRN Q8HRS PRN PO DYSPEPSIA, 1ST CHOICE 10/16/20 19:00 Diclofenac Sodium (Voltaren) 1 stan BID TP 10/16/20 21:00 10/25/20 20:09 Divalproex Sodium (Depakote) 250 mg TID PO 10/16/20 21:00 10/25/20 20:10 Lactase (Lactaid) 3,000 unit TIDBFRMEAL PO 10/17/20 07:30 10/25/20 17:12 Magnesium Oxide (Magnesium Oxide) 400 mg NOON PO 10/17/20 12:00 10/25/20 12:00 Metoclopramide HCl (Reglan) 10 mg QIDACHS PO 10/16/20 21:00 10/24/20 19:48 DC 10/24/20 16:12 Pantoprazole Sodium (Protonix) 40 mg QHS PO 10/16/20 21:00 10/25/20 20:10 Pantoprazole Sodium (Protonix) 40 mg DAILY PO 10/17/20 09:00 UNV Risperidone (RisperDAL) 1 mg QHS PO 10/16/20 21:00 10/18/20 11:47 DC 10/17/20 20:36 Risperidone (RisperDAL) 1.5 mg DAILY PO 10/17/20 09:00 10/23/20 17:54 DC 10/23/20 09:13 Sertraline HCl (Zoloft) 200 mg DAILY PO 10/17/20 09:00 10/24/20 16:49 DC 10/24/20 08:13 Cephalexin HCl (Keflex) 500 mg BID PO 10/16/20 21:00 10/19/20 16:10 DC 10/19/20 08:07 Loperamide HCl (Imodium) 2 mg PRN Q8HRS PRN PO DIARRHEA 10/16/20 19:00 Acetaminophen (Tylenol) 650 mg PRN Q6HRS PRN PO MILD PAIN / TEMP > 100.3'F 10/16/20 19:45 UNV Multi-Ingredient Ointment (Analgesic [place]) 1 stan PRN QID PRN TP MUSCLE PAIN 10/16/20 19:45 Al Hydroxide/Mg Hydroxide (Mylanta Plus Xs) 15 ml PRN AFTMEALHC PRN PO DYSPEPSIA, 2ND CHOICE 10/16/20 19:45 Magnesium Hydroxide (Milk Of Magnesia) 2,400 mg PRN QHS PRN PO CONSTIPATION 10/16/20 19:45 10/21/20 20:48 Lactobacillus Rhamnosus (Culturelle) 1 cap BID PO 10/17/20 21:00 10/25/20 20:10 Risperidone (RisperDAL) 1.5 mg QHS PO 10/18/20 21:00 10/23/20 21:00 DC 10/23/20 20:10 Vitamin D (Vitamin D3) 50,000 unit WEEKLY PO 10/18/20 15:45 10/25/20 08:11 Doxycycline Hyclate (Vibra-Tab) 100 mg BID PO 10/19/20 21:00 10/29/20 22:00 10/25/20 20:10 Trimethoprim/ Sulfamethoxazole (Bactrim Ds) 1 tab BID PO 10/19/20 21:00 10/29/20 22:00 10/25/20 20:10 Risperidone (RisperDAL) 3 mg QHS PO 10/24/20 21:00 10/25/20 20:11 Bupropion HCl (Wellbutrin Xl) 150 mg DAILY PO 10/25/20 09:00 10/26/20 21:00 10/25/20 08:08 Bupropion HCl (Wellbutrin Xl) 300 mg DAILY PO 10/27/20 09:00 Current Medications Medications (Trade) Dose Ordered Sig/Lizette Route PRN Reason Start Time Stop Time Status Last Admin Dose Admin Bupropion HCl (Wellbutrin Xl) 150 mg DAILY PO 10/25/20 09:00 10/26/20 21:00 10/25/20 08:08 I have reviewed the current psychotropics carefully including drug interactions. Risk benefit ratio favors no change other than as noted in my dictated progress note. Diagnosis: Problems: (1) Schizoaffective disorder, bipolar type (2) Impulse control disorder, unspecified (3) Anxiety disorder, unspecified (4) Bipolar disorder, current episode mixed, severe, with psychotic features VICTORINA BAR MD Oct 25, 2020 22:15
[2020-10-26 06:20] VITALS: BP 120/64
--- NOTE | 2020-10-26 06:57 | PDOC ---
Exam Note: Dandy Note: This note is a late entry for 10/25/2020 covers elements not covered in my initial note. Subjective: The patient was seen individually in the morning of 10/25/2020 for a treatment team meeting with Trista Perez, Lisa Calzada (social service liaison), Tiffany, activity therapy and Erik MADRIGAL, discussed and reviewed the chart. He slept 9 hours previous night. Yesterday the patient had defecated in bed but denied this. He has been somewhat tired. Review of Systems: No CV, , pulmonary, eye, ENT system symptoms on review. Mental Status Exam: The patient is reasonably oriented. Speech is moderate latency. Often response is monosyllabic. Abstraction fair. Computation impaired. Language function intact. Attention span short. Mood and affect labile, withdrawn. No suicidal or homicidal ideation. Laboratory Data: Reviewed. Impression: Schizoaffective disorder bipolar type mixed with psychotic features. Anxiety disorder unspecified. Impulse control disorder unspecified. Plan: Continue current psychotropics. We will continue to adjust the Risperdal. Valproic acid level therapeutic at 74. We will keep Depakote unchanged. Maintain Wellbutrin 300 mg a day. Adjust further as clinically indicated. Assessment: Vital Signs/I&O: Vital Signs Date Time Temp Pulse Resp B/P (MAP) Pulse Ox O2 Delivery O2 Flow Rate FiO2 10/26/20 06:20 98.4 58 14 120/64 (82) 98 10/25/20 05:56 Room Air I & O 10/25/20 10/25/20 10/26/20 15:00 23:00 07:00 Intake Total 720 ml 600 ml Balance 720 ml 600 ml Current Medications: Meds: Current Medications Medications (Trade) Dose Ordered Sig/Lizette Route PRN Reason Start Time Stop Time Status Last Admin Dose Admin Ceftriaxone Sodium 1 gm/ Sodium Chloride 50 ml @ 100 mls/hr 1X ONCE IV 10/16/20 17:00 10/16/20 17:29 DC 10/16/20 17:00 Ceftriaxone Sodium (Rocephin) 1 gm STK-MED ONCE .ROUTE 10/16/20 17:05 10/16/20 17:05 DC Acetaminophen (Tylenol) 650 mg PRN Q4HRS PRN PO MILD PAIN / TEMP > 100.3'F 10/16/20 19:00 Buspirone HCl (Buspar) 10 mg TID PO 10/16/20 21:00 10/25/20 20:10 Calcium Carbonate/ Glycine (Tums) 500 mg PRN Q8HRS PRN PO DYSPEPSIA, 1ST CHOICE 10/16/20 19:00 Diclofenac Sodium (Voltaren) 1 stan BID TP 10/16/20 21:00 10/25/20 20:09 Divalproex Sodium (Depakote) 250 mg TID PO 10/16/20 21:00 10/25/20 20:10 Lactase (Lactaid) 3,000 unit TIDBFRMEAL PO 10/17/20 07:30 10/25/20 17:12 Magnesium Oxide (Magnesium Oxide) 400 mg NOON PO 10/17/20 12:00 10/25/20 12:00 Metoclopramide HCl (Reglan) 10 mg QIDACHS PO 10/16/20 21:00 10/24/20 19:48 DC 10/24/20 16:12 Pantoprazole Sodium (Protonix) 40 mg QHS PO 10/16/20 21:00 10/25/20 20:10 Pantoprazole Sodium (Protonix) 40 mg DAILY PO 10/17/20 09:00 UNV Risperidone (RisperDAL) 1 mg QHS PO 10/16/20 21:00 10/18/20 11:47 DC 10/17/20 20:36 Risperidone (RisperDAL) 1.5 mg DAILY PO 10/17/20 09:00 10/23/20 17:54 DC 10/23/20 09:13 Sertraline HCl (Zoloft) 200 mg DAILY PO 10/17/20 09:00 10/24/20 16:49 DC 10/24/20 08:13 Cephalexin HCl (Keflex) 500 mg BID PO 10/16/20 21:00 10/19/20 16:10 DC 10/19/20 08:07 Loperamide HCl (Imodium) 2 mg PRN Q8HRS PRN PO DIARRHEA 10/16/20 19:00 Acetaminophen (Tylenol) 650 mg PRN Q6HRS PRN PO MILD PAIN / TEMP > 100.3'F 10/16/20 19:45 UNV Multi-Ingredient Ointment (Analgesic [place]) 1 stan PRN QID PRN TP MUSCLE PAIN 10/16/20 19:45 Al Hydroxide/Mg Hydroxide (Mylanta Plus Xs) 15 ml PRN AFTMEALHC PRN PO DYSPEPSIA, 2ND CHOICE 10/16/20 19:45 Magnesium Hydroxide (Milk Of Magnesia) 2,400 mg PRN QHS PRN PO CONSTIPATION 10/16/20 19:45 10/21/20 20:48 Lactobacillus Rhamnosus (Culturelle) 1 cap BID PO 10/17/20 21:00 10/25/20 20:10 Risperidone (RisperDAL) 1.5 mg QHS PO 10/18/20 21:00 10/23/20 21:00 DC 10/23/20 20:10 Vitamin D (Vitamin D3) 50,000 unit WEEKLY PO 10/18/20 15:45 10/25/20 08:11 Doxycycline Hyclate (Vibra-Tab) 100 mg BID PO 10/19/20 21:00 10/29/20 22:00 10/25/20 20:10 Trimethoprim/ Sulfamethoxazole (Bactrim Ds) 1 tab BID PO 10/19/20 21:00 10/29/20 22:00 10/25/20 20:10 Risperidone (RisperDAL) 3 mg QHS PO 10/24/20 21:00 10/25/20 20:11 Bupropion HCl (Wellbutrin Xl) 150 mg DAILY PO 10/25/20 09:00 10/26/20 21:00 10/25/20 08:08 Bupropion HCl (Wellbutrin Xl) 300 mg DAILY PO 10/27/20 09:00 Current Medications Medications (Trade) Dose Ordered Sig/Lizette Route PRN Reason Start Time Stop Time Status Last Admin Dose Admin Bupropion HCl (Wellbutrin Xl) 150 mg DAILY PO 10/25/20 09:00 10/26/20 21:00 10/25/20 08:08 I have reviewed the current psychotropics carefully including drug interactions. Risk benefit ratio favors no change other than as noted in my dictated progress note. Diagnosis: Problems: (1) Schizoaffective disorder, bipolar type (2) Impulse control disorder, unspecified (3) Anxiety disorder, unspecified (4) Bipolar disorder, current episode mixed, severe, with psychotic features VICTORINA BAR MD Oct 26, 2020 06:57
[2020-10-26] MEDS: DOXYCYCLINE HYCLATE 100 MG TABLET PO SCH ×2 (08:09→20:56)
[2020-10-26] MEDS: DICLOFENAC SODIUM 1% TOPICAL GEL 100GM TUBE. TP SCH ×2 (08:09→20:58)
[2020-10-26] MEDS: buPROPion XL 150 MG TAB.ER.24H PO SCH (08:09)
[2020-10-26] MEDS: DIVALPROEX SODIUM 250 MG TABLET.DR. PO SCH ×3 (08:09→20:58)
[2020-10-26] MEDS: LACTOBACILLUS RHAMNOSUS GG 1 CAPSULE. PO SCH ×2 (08:09→20:58)
[2020-10-26] MEDS: SMZ/TMP 800/160MG TABLET. PO SCH ×2 (08:09→20:57)
[2020-10-26] MEDS: busPIRone 10 MG TABLET. PO SCH ×2 (08:10→14:44)
[2020-10-26] MEDS: LACTASE 3,000 UNIT TABLET PO SCH ×3 (08:10→14:44)
--- NOTE | 2020-10-26 09:14 | NUR ---
PILAR received vm from Kathleen at pt facility requesting update. Kathleen stated that she would be in and out of the office today. PILAR contacted Kathleen back and also had to leave a vm to provide a quick update on pt progress. PILAR then contacted pt Sister/DPOA, Carolina, to provide update. Carolina appreciative of call. PILAR reported to both Kathleen and Carolina of possible d/c mid next week, but we would see how the weekend went and if the doctor felt like there were any other medications that needed adjusted. Carolina appreciative of call.
[2020-10-26] MEDS: MAGNESIUM OXIDE 400 MG TABLET PO SCH (12:00)
[2020-10-26 15:54] VITALS: BP 136/74
--- NOTE | 2020-10-26 16:24 | PDOC2 ---
CONSULT DOS: DATE: 10/26/20 TIME: 15:10 Reason for Consult: Osteomyelitis of left second toe and stage II pressure ulcer to the right hip Referring Physician: Dr. Angel Problem List Problems Medical Problems: (1) Altered mental status Status: Acute (2) UTI (urinary tract infection) Status: Acute History of Present Illness Patient currently resident at [facility] patient diagnosed per bone scan with osteomyelitis of his distal right second toe on 10/18. Patient currently being treated with Bactrim and doxycycline. Hemoglobin A1c 4.9 on 10/16/2020, albumin 3.5 on 10/24. Patient with history of left great toe amputation secondary to cancer many years ago. Patient denies history of difficulty with wound healing in past. Past Medical History Significant for hypothyroidism, knee pain, anemia, GI bleed, Garza's esophagus, gastroesophageal reflux disease, lactose intolerance, muscle wasting and atrophy, peripheral vascular disease, paraphilia, sexual dysfunction, pneumonia, hyperlipidemia, polycythemia, delayed gastric emptying and transaminitis. Past Surgical History Significant for cholecystectomy. Current Medications Current Medications Ceftriaxone Sodium 1 gm/ Sodium Chloride 50 ml @ 100 mls/hr 1X ONCE IV Last administered on 10/16/20at 17:00; Start 10/16/20 at 17:00; Stop 10/16/20 at 17:29; Status DC Ceftriaxone Sodium (Rocephin) 1 gm STK-MED ONCE .ROUTE ; Start 10/16/20 at 17:05; Stop 10/16/20 at 17:05; Status DC Acetaminophen (Tylenol) 650 mg PRN Q4HRS PRN PO MILD PAIN / TEMP > 100.3'F; Start 10/16/20 at 19:00 Buspirone HCl (Buspar) 10 mg TID PO Last administered on 10/26/20at 14:44; Start 10/16/20 at 21:00 Calcium Carbonate/ Glycine (Tums) 500 mg PRN Q8HRS PRN PO DYSPEPSIA, 1ST CHOICE; Start 10/16/20 at 19:00 Diclofenac Sodium (Voltaren) 1 stan BID TP Last administered on 10/26/20at 08:09; Start 10/16/20 at 21:00 Divalproex Sodium (Depakote) 250 mg TID PO Last administered on 10/26/20at 14:44; Start 10/16/20 at 21:00 Lactase (Lactaid) 3,000 unit TIDBFRMEAL PO Last administered on 10/26/20at 14:44; Start 10/17/20 at 07:30 Magnesium Oxide (Magnesium Oxide) 400 mg NOON PO Last administered on 10/26/20at 12:00; Start 10/17/20 at 12:00 Metoclopramide HCl (Reglan) 10 mg QIDACHS PO Last administered on 10/24/20at 16:12; Start 10/16/20 at 21:00; Stop 10/24/20 at 19:48; Status DC Pantoprazole Sodium (Protonix) 40 mg QHS PO Last administered on 10/25/20at 20:10; Start 10/16/20 at 21:00 Pantoprazole Sodium (Protonix) 40 mg DAILY PO ; Start 10/17/20 at 09:00; Status UNV Risperidone (RisperDAL) 1 mg QHS PO Last administered on 10/17/20at 20:36; Start 10/16/20 at 21:00; Stop 10/18/20 at 11:47; Status DC Risperidone (RisperDAL) 1.5 mg DAILY PO Last administered on 10/23/20at 09:13; Start 10/17/20 at 09:00; Stop 10/23/20 at 17:54; Status DC Sertraline HCl (Zoloft) 200 mg DAILY PO Last administered on 10/24/20at 08:13; Start 10/17/20 at 09:00; Stop 10/24/20 at 16:49; Status DC Cephalexin HCl (Keflex) 500 mg BID PO Last administered on 10/19/20at 08:07; Start 10/16/20 at 21:00; Stop 10/19/20 at 16:10; Status DC Loperamide HCl (Imodium) 2 mg PRN Q8HRS PRN PO DIARRHEA; Start 10/16/20 at 19:00 Acetaminophen (Tylenol) 650 mg PRN Q6HRS PRN PO MILD PAIN / TEMP > 100.3'F; Start 10/16/20 at 19:45; Status UNV Multi-Ingredient Ointment (Analgesic [place]) 1 stan PRN QID PRN TP MUSCLE PAIN; Start 10/16/20 at 19:45 Al Hydroxide/Mg Hydroxide (Mylanta Plus Xs) 15 ml PRN AFTMEALHC PRN PO DYSPEPSIA, 2ND CHOICE; Start 10/16/20 at 19:45 Magnesium Hydroxide (Milk Of Magnesia) 2,400 mg PRN QHS PRN PO CONSTIPATION Last administered on 10/21/20at 20:48; Start 10/16/20 at 19:45 Lactobacillus Rhamnosus (Culturelle) 1 cap BID PO Last administered on 10/26/20at 08:09; Start 10/17/20 at 21:00 Risperidone (RisperDAL) 1.5 mg QHS PO Last administered on 10/23/20at 20:10; Start 10/18/20 at 21:00; Stop 10/23/20 at 21:00; Status DC Vitamin D (Vitamin D3) 50,000 unit WEEKLY PO Last administered on 10/25/20at 08:11; Start 10/18/20 at 15:45 Doxycycline Hyclate (Vibra-Tab) 100 mg BID PO Last administered on 10/26/20at 08:09; Start 10/19/20 at 21:00; Stop 10/29/20 at 22:00 Trimethoprim/ Sulfamethoxazole (Bactrim Ds) 1 tab BID PO Last administered on 10/26/20at 08:09; Start 10/19/20 at 21:00; Stop 10/29/20 at 22:00 Risperidone (RisperDAL) 3 mg QHS PO Last administered on 10/25/20at 20:11; Start 10/24/20 at 21:00 Bupropion HCl (Wellbutrin Xl) 150 mg DAILY PO Last administered on 10/26/20at 08:09; Start 10/25/20 at 09:00; Stop 10/26/20 at 21:00 Bupropion HCl (Wellbutrin Xl) 300 mg DAILY PO ; Start 10/27/20 at 09:00 Active Scripts Active Cephalexin 500 Mg Tablet 1 Tab PO BID Reglan (Metoclopramide Hcl) 10 Mg Tablet 10 Mg PO QIDACHS Protonix (Pantoprazole Sodium) 40 Mg Tablet. 1 Tab PO DAILY Reported Loperamide (Loperamide Hcl) 2 Mg Tablet 2 Mg PO PRN Q8HRS PRN Acetaminophen 325 Mg Tablet 650 Mg PO PRN Q4HRS PRN Buspirone Hcl 10 Mg Tablet 10 Mg PO TID Diclofenac Sodium 100 Gm Gel..gram. 100 Gm TP BID Pantoprazole Sodium 40 Mg Tablet.dr 40 Mg PO QHS Magnesium Oxide 400 Mg Tablet 400 Mg PO NOON Zoloft (Sertraline Hcl) 100 Mg Tablet 200 Mg PO DAILY Risperidone 1 Mg Tablet 1.5 Mg PO DAILY Risperidone 1 Mg Tablet 1 Mg PO QHS Lactaid (Lactase) 3,000 Unit Tablet 3,000 Unit PO TIDBFRMEAL Depakote (Divalproex Sodium) 250 Mg Tablet.dr 250 Mg PO TID Tums (Calcium Carbonate) 200 Mg Tab.chew 400 Mg PO PRN Q8HRS PRN Allergies: Coded Allergies: lactose (Verified Allergy, Unknown, Diarrhea, 10/16/20) NH reports extreme GI upset, explosive stools if patient gets any lactose. Review of System Patient denies painful symptoms of the affected toe. Patient states that he has been feeling well without nausea, vomiting or diarrhea. Patient denies recent fevers or flulike symptoms. Patient states that he has been eating and drinking well. Patient denies cough or shortness of breath. Physical Exam Patient awake and alert 65-year-old male in no apparent distress. Patient pleasant in conversation and appears to be a good historian. Vital signs are stable. Patient is afebrile. Respirations are even and unlabored. Patient is on room air not requiring supplemental oxygen at this time. Abdomen is soft, nondistended, nontender to palpation and obese. Skin is warm, dry and pink. The right hip presents with a 0.6 x 0.4 cm open ulceration. Wound bed is 100% pink and smooth. Edges do present with mild epiboly. Surrounding tissue with mild erythema. Minimal drainage present. No odor following cleansing. The left second toe presents with a 1 x 1 cm area of intact eschar. Edges are attached at this time. Surrounding tissue with mild erythema and edema present, this does not extend onto plantar or dorsal foot. No drainage noted at this time. Pedal pulses palpable and equal bilaterally. VITALS Vital Signs Date Time Temp Pulse Resp B/P (MAP) Pulse Ox O2 Delivery O2 Flow Rate FiO2 10/26/20 15:54 97.8 81 20 136/74 (94) 98 10/25/20 05:56 Room Air Labs Laboratory Tests Test 10/25/20 05:55 Glucose (Fingerstick) 85 mg/dL (70-99) Assessment/Plan Wound assessment and plan: 1) stage II pressure ulcer to the right hip -Discussed offloading with patient and need to lie on back or left side while sleeping -Cleanse and pat dry. Apply skin prep to surrounding tissue. Cover with foam adhesive. Change every 3 days or as needed if dressing loose or saturated. -Dietary consulting to ensure patient with adequate protein intake for optimal wound healing 2) osteomyelitis of the left second toe -Patient currently being treated with Bactrim and doxycycline per PCP -As eschar is intact at this time no need for surgical debridement. Continue current wound care: Cleanse and pat dry. Apply skin prep to surrounding tissue. Apply Iodoflex to area of eschar and secure with Band-Aid. Change every 3 days or as needed if dressing loose or saturated -Offloading of the affected area is difficult as patient does not tolerate a half half shoe or postop shoe secondary to increased fall risk -Due to hammertoe deformity of affected toe and absence of left great toe the distal second toe is an atypical pressure point for the patient. Would recommend surgically amputation of the distal aspect of the second toe secondary to osteomyelitis and hammertoe deformity causing the atypical pressure point. As the infection at this time appears to be controlled, this could be done following discharge from [facility] per Ortho or podiatry. HERBIE OCAMPO APRN Oct 26, 2020 16:24
[2020-10-26] MEDS: risperiDONE 1 MG TABLET. PO SCH (20:57)
[2020-10-26] MEDS: PANTOPRAZOLE 40 MG TABLET. PO SCH (20:57)
--- NOTE | 2020-10-26 21:57 | PDOC ---
Exam Note: Dandy Note: Please also refer to the separate dictated note~for this date of service dictated separately.~Patient seen individually. Discussed the patient with Nursing staff reviewed the chart.~Reviewed interim history and current functioning. Reviewed vital signs,~Labs/ Radiology~and current medications noted below. Continue current treatment with the changes noted in the dictated addendum note Assessment: Vital Signs/I&O: Vital Signs Date Time Temp Pulse Resp B/P (MAP) Pulse Ox O2 Delivery O2 Flow Rate FiO2 10/26/20 15:54 97.8 81 20 136/74 (94) 98 10/25/20 05:56 Room Air I & O 10/25/20 10/25/20 10/26/20 15:00 23:00 07:00 Intake Total 720 ml 600 ml Balance 720 ml 600 ml Current Medications: Meds: Current Medications Medications (Trade) Dose Ordered Sig/Lizette Route PRN Reason Start Time Stop Time Status Last Admin Dose Admin Ceftriaxone Sodium 1 gm/ Sodium Chloride 50 ml @ 100 mls/hr 1X ONCE IV 10/16/20 17:00 10/16/20 17:29 DC 10/16/20 17:00 Ceftriaxone Sodium (Rocephin) 1 gm STK-MED ONCE .ROUTE 10/16/20 17:05 10/16/20 17:05 DC Acetaminophen (Tylenol) 650 mg PRN Q4HRS PRN PO MILD PAIN / TEMP > 100.3'F 10/16/20 19:00 Buspirone HCl (Buspar) 10 mg TID PO 10/16/20 21:00 10/26/20 17:23 DC 10/26/20 14:44 Calcium Carbonate/ Glycine (Tums) 500 mg PRN Q8HRS PRN PO DYSPEPSIA, 1ST CHOICE 10/16/20 19:00 Diclofenac Sodium (Voltaren) 1 stan BID TP 10/16/20 21:00 10/26/20 20:58 Divalproex Sodium (Depakote) 250 mg TID PO 10/16/20 21:00 10/26/20 20:58 Lactase (Lactaid) 3,000 unit TIDBFRMEAL PO 10/17/20 07:30 10/26/20 14:44 Magnesium Oxide (Magnesium Oxide) 400 mg NOON PO 10/17/20 12:00 10/26/20 12:00 Metoclopramide HCl (Reglan) 10 mg QIDACHS PO 10/16/20 21:00 10/24/20 19:48 DC 10/24/20 16:12 Pantoprazole Sodium (Protonix) 40 mg QHS PO 10/16/20 21:00 10/26/20 20:57 Pantoprazole Sodium (Protonix) 40 mg DAILY PO 10/17/20 09:00 UNV Risperidone (RisperDAL) 1 mg QHS PO 10/16/20 21:00 10/18/20 11:47 DC 10/17/20 20:36 Risperidone (RisperDAL) 1.5 mg DAILY PO 10/17/20 09:00 10/23/20 17:54 DC 10/23/20 09:13 Sertraline HCl (Zoloft) 200 mg DAILY PO 10/17/20 09:00 10/24/20 16:49 DC 10/24/20 08:13 Cephalexin HCl (Keflex) 500 mg BID PO 10/16/20 21:00 10/19/20 16:10 DC 10/19/20 08:07 Loperamide HCl (Imodium) 2 mg PRN Q8HRS PRN PO DIARRHEA 10/16/20 19:00 Acetaminophen (Tylenol) 650 mg PRN Q6HRS PRN PO MILD PAIN / TEMP > 100.3'F 10/16/20 19:45 UNV Multi-Ingredient Ointment (Analgesic [place]) 1 stan PRN QID PRN TP MUSCLE PAIN 10/16/20 19:45 Al Hydroxide/Mg Hydroxide (Mylanta Plus Xs) 15 ml PRN AFTMEALHC PRN PO DYSPEPSIA, 2ND CHOICE 10/16/20 19:45 Magnesium Hydroxide (Milk Of Magnesia) 2,400 mg PRN QHS PRN PO CONSTIPATION 10/16/20 19:45 10/21/20 20:48 Lactobacillus Rhamnosus (Culturelle) 1 cap BID PO 10/17/20 21:00 10/26/20 20:58 Risperidone (RisperDAL) 1.5 mg QHS PO 10/18/20 21:00 10/23/20 21:00 DC 10/23/20 20:10 Vitamin D (Vitamin D3) 50,000 unit WEEKLY PO 10/18/20 15:45 10/25/20 08:11 Doxycycline Hyclate (Vibra-Tab) 100 mg BID PO 10/19/20 21:00 10/29/20 22:00 10/26/20 20:56 Trimethoprim/ Sulfamethoxazole (Bactrim Ds) 1 tab BID PO 10/19/20 21:00 10/29/20 22:00 10/26/20 20:57 Risperidone (RisperDAL) 3 mg QHS PO 10/24/20 21:00 10/26/20 20:57 Bupropion HCl (Wellbutrin Xl) 150 mg DAILY PO 10/25/20 09:00 10/26/20 21:00 DC 10/26/20 08:09 Bupropion HCl (Wellbutrin Xl) 300 mg DAILY PO 10/27/20 09:00 I have reviewed the current psychotropics carefully including drug interactions. Risk benefit ratio favors no change other than as noted in my dictated progress note. Diagnosis: Problems: (1) Schizoaffective disorder, bipolar type (2) Impulse control disorder, unspecified (3) Anxiety disorder, unspecified (4) Bipolar disorder, current episode mixed, severe, with psychotic features VICTORINA BAR MD Oct 26, 2020 21:57
--- NOTE | 2020-10-26 23:00 | NUR ---
Patient is in the hallway on assumption of care, propelling around in his wheelchair. He is flat, pleasant. He is making more of an effort to come out of his room and not self-isolate. Compliant with assessments and medications whole. No agitation. Patient denies any pain or discomfort when asked. He appears to be sleeping comfortably at present time. Will continue to monitor.
[2020-10-27] MEDS: ACETAMINOPHEN 325 MG TABLET PO PRN ×3 (00:02→23:06)
[2020-10-27 06:14] VITALS: BP 127/67
[2020-10-27] MEDS: DIVALPROEX SODIUM 250 MG TABLET.DR. PO SCH ×3 (08:23→19:54)
[2020-10-27] MEDS: LACTASE 3,000 UNIT TABLET PO SCH ×3 (08:23→14:17)
[2020-10-27] MEDS: buPROPion XL 300 MG TAB.ER.24H. PO SCH (08:23)
[2020-10-27] MEDS: SMZ/TMP 800/160MG TABLET. PO SCH ×2 (08:23→19:53)
[2020-10-27] MEDS: LACTOBACILLUS RHAMNOSUS GG 1 CAPSULE. PO SCH ×2 (08:23→19:53)
[2020-10-27] MEDS: DOXYCYCLINE HYCLATE 100 MG TABLET PO SCH ×2 (08:23→19:53)
[2020-10-27] MEDS: DICLOFENAC SODIUM 1% TOPICAL GEL 100GM TUBE. TP SCH ×2 (08:25→19:55)
--- NOTE | 2020-10-27 11:19 | NUR ---
Nursing Note: Pt. got out of bed and came to breakfast this morning. He was medication compliant. Pt. was socializing with another pt. at his breakfast table and helping him open his milk. He engaged with he nurse while he was receiving medications. Pt. wanted to go back to bed, but staff asked him to stay up until lunch and then he could take an afternoon nap, he agreed and came to the day room and visited with others. Pt seems to be more energetic than when he first arrived and has been actively trying to work with staff to participate more often.
[2020-10-27] MEDS: MAGNESIUM OXIDE 400 MG TABLET PO SCH (12:00)
[2020-10-27 15:56] VITALS: BP 119/60
--- NOTE | 2020-10-27 17:23 | NUR ---
Pt verbalizing displeasure about having double portions served to him during dinner. This nurse said the request was made by me to nutrition on 10/24/20 d/t observing pt eating another patient's partially eaten meal (see note). Pt became very angry and said "I never did that." This nurse replied, "Raul, I saw you take the tray away from where it was sitting in front of the patient and eat the food." Pt responded "I never did that." This nurse stated, "Raul...I took the tray away from you and asked you to refrain from eating food that was partially eaten by other people." Pt had nothing further to say.
[2020-10-27] MEDS: PANTOPRAZOLE 40 MG TABLET. PO SCH (19:53)
[2020-10-27] MEDS: risperiDONE 1 MG TABLET. PO SCH (19:53)
--- NOTE | 2020-10-27 22:13 | PDOC ---
Exam Note: Dandy Note: Please also refer to the separate dictated note~for this date of service dictated separately.~Patient seen individually. Discussed the patient with Nursing staff reviewed the chart.~Reviewed interim history and current functioning. Reviewed vital signs,~Labs/ Radiology~and current medications noted below. Continue current treatment with the changes noted in the dictated addendum note Assessment: Vital Signs/I&O: Vital Signs Date Time Temp Pulse Resp B/P (MAP) Pulse Ox O2 Delivery O2 Flow Rate FiO2 10/27/20 15:56 97.6 84 18 119/60 (79) 98 10/25/20 05:56 Room Air I & O 10/26/20 10/26/20 10/27/20 15:00 23:00 07:00 Intake Total 720 ml 720 ml Balance 720 ml 720 ml Current Medications: Meds: Current Medications Medications (Trade) Dose Ordered Sig/Lizette Route PRN Reason Start Time Stop Time Status Last Admin Dose Admin Ceftriaxone Sodium 1 gm/ Sodium Chloride 50 ml @ 100 mls/hr 1X ONCE IV 10/16/20 17:00 10/16/20 17:29 DC 10/16/20 17:00 Ceftriaxone Sodium (Rocephin) 1 gm STK-MED ONCE .ROUTE 10/16/20 17:05 10/16/20 17:05 DC Acetaminophen (Tylenol) 650 mg PRN Q4HRS PRN PO MILD PAIN / TEMP > 100.3'F 10/16/20 19:00 10/27/20 17:18 Buspirone HCl (Buspar) 10 mg TID PO 10/16/20 21:00 10/26/20 17:23 DC 10/26/20 14:44 Calcium Carbonate/ Glycine (Tums) 500 mg PRN Q8HRS PRN PO DYSPEPSIA, 1ST CHOICE 10/16/20 19:00 Diclofenac Sodium (Voltaren) 1 stan BID TP 10/16/20 21:00 10/27/20 19:55 Divalproex Sodium (Depakote) 250 mg TID PO 10/16/20 21:00 10/27/20 19:54 Lactase (Lactaid) 3,000 unit TIDBFRMEAL PO 10/17/20 07:30 10/27/20 14:17 Magnesium Oxide (Magnesium Oxide) 400 mg NOON PO 10/17/20 12:00 10/27/20 12:00 Metoclopramide HCl (Reglan) 10 mg QIDACHS PO 10/16/20 21:00 10/24/20 19:48 DC 10/24/20 16:12 Pantoprazole Sodium (Protonix) 40 mg QHS PO 10/16/20 21:00 10/27/20 19:53 Pantoprazole Sodium (Protonix) 40 mg DAILY PO 10/17/20 09:00 UNV Risperidone (RisperDAL) 1 mg QHS PO 10/16/20 21:00 10/18/20 11:47 DC 10/17/20 20:36 Risperidone (RisperDAL) 1.5 mg DAILY PO 10/17/20 09:00 10/23/20 17:54 DC 10/23/20 09:13 Sertraline HCl (Zoloft) 200 mg DAILY PO 10/17/20 09:00 10/24/20 16:49 DC 10/24/20 08:13 Cephalexin HCl (Keflex) 500 mg BID PO 10/16/20 21:00 10/19/20 16:10 DC 10/19/20 08:07 Loperamide HCl (Imodium) 2 mg PRN Q8HRS PRN PO DIARRHEA 10/16/20 19:00 Acetaminophen (Tylenol) 650 mg PRN Q6HRS PRN PO MILD PAIN / TEMP > 100.3'F 10/16/20 19:45 UNV Multi-Ingredient Ointment (Analgesic [place]) 1 stan PRN QID PRN TP MUSCLE PAIN 10/16/20 19:45 Al Hydroxide/Mg Hydroxide (Mylanta Plus Xs) 15 ml PRN AFTMEALHC PRN PO DYSPEPSIA, 2ND CHOICE 10/16/20 19:45 Magnesium Hydroxide (Milk Of Magnesia) 2,400 mg PRN QHS PRN PO CONSTIPATION 10/16/20 19:45 10/21/20 20:48 Lactobacillus Rhamnosus (Culturelle) 1 cap BID PO 10/17/20 21:00 10/27/20 19:53 Risperidone (RisperDAL) 1.5 mg QHS PO 10/18/20 21:00 10/23/20 21:00 DC 10/23/20 20:10 Vitamin D (Vitamin D3) 50,000 unit WEEKLY PO 10/18/20 15:45 10/25/20 08:11 Doxycycline Hyclate (Vibra-Tab) 100 mg BID PO 10/19/20 21:00 10/29/20 22:00 10/27/20 19:53 Trimethoprim/ Sulfamethoxazole (Bactrim Ds) 1 tab BID PO 10/19/20 21:00 10/29/20 22:00 10/27/20 19:53 Risperidone (RisperDAL) 3 mg QHS PO 10/24/20 21:00 10/27/20 19:53 Bupropion HCl (Wellbutrin Xl) 150 mg DAILY PO 10/25/20 09:00 10/26/20 21:00 DC 10/26/20 08:09 Bupropion HCl (Wellbutrin Xl) 300 mg DAILY PO 10/27/20 09:00 10/27/20 08:23 Trazodone HCl (Desyrel) 50 mg PRN QHS PRN PO insomnia 10/27/20 21:15 Current Medications Medications (Trade) Dose Ordered Sig/Lizette Route PRN Reason Start Time Stop Time Status Last Admin Dose Admin Bupropion HCl (Wellbutrin Xl) 300 mg DAILY PO 10/27/20 09:00 10/27/20 08:23 I have reviewed the current psychotropics carefully including drug interactions. Risk benefit ratio favors no change other than as noted in my dictated progress note. Diagnosis: Problems: (1) Schizoaffective disorder, bipolar type (2) Impulse control disorder, unspecified (3) Anxiety disorder, unspecified (4) Bipolar disorder, current episode mixed, severe, with psychotic features VICTORINA BAR MD Oct 27, 2020 22:13
--- NOTE | 2020-10-27 22:46 | NUR ---
Patient is in the day room on assumption of care, watching television and socializing with a peer. He is more engaged, pleasant, interactive and appropriate. He is making more of an effort to come out of his room be an active participant in treatment. Compliant with assessments and medications whole. No agitation. Patient denies any pain or discomfort when asked. He appears to be sleeping comfortably at present time. Will continue to monitor.
[2020-10-28 05:48] VITALS: BP 121/47
--- NOTE | 2020-10-28 08:09 | PDOC ---
Exam Note: Dandy Note: This note is a late entry for 10/26/2020 covers elements not covered in my initial note. Subjective: The patient was seen individually in the evening of 10/26/2020 with Erik MADRIGAL, discussed and reviewed the chart. He slept 9 hours previous night. The patient slept through breakfast this morning but then after breakfast he has been in the dayroom, more interactive, talking to others which is quite an improvement for him. He had gone to the restroom for his toileting rather than in his bed like he did the day before. I met with him in his room. He was much more animated, verbal, fixated on wanting to be discharged by 11/09 so he could watch the [employer]. I discussed with him more than likely the discharge would be depending on his progress. Review of Systems: No CV, , pulmonary, eye, ENT system symptoms on review. Mental Status Exam: The patient is awake, alert, and oriented. Speech is coherent. Abstraction fair. Computation impaired. Language function intact. Attention span fair. Mood and affect appears improved, more animated, verbal, even smiling at times with me. Laboratory Data: Reviewed. Impression: Schizoaffective disorder bipolar type mixed with psychotic feature s. Anxiety disorder unspecified. Impulse control disorder unspecified. Plan: Continue current psychotropics including the increased Wellbutrin XL 300 mg a day. Stop the BuSpar 10 mg t.i.d. probably has little beneficial effect at this stage. Continue Risperdal 3 mg h.s. We may consider reducing it gradually. Maintain Depakote ER at current dosage, level therapeutic at 74. Assessment: Vital Signs/I&O: Vital Signs Date Time Temp Pulse Resp B/P (MAP) Pulse Ox O2 Delivery O2 Flow Rate FiO2 10/28/20 05:48 97.1 61 18 121/47 (71) 93 10/25/20 05:56 Room Air l I & O 10/27/20 10/27/20 10/28/20 14:59 22:59 06:59 Intake Total 720 ml 480 ml Balance 720 ml 480 ml Current Medications: Meds: Current Medications Medications (Trade) Dose Ordered Sig/Lizette Route PRN Reason Start Time Stop Time Status Last Admin Dose Admin Ceftriaxone Sodium 1 gm/ Sodium Chloride 50 ml @ 100 mls/hr 1X ONCE IV 10/16/20 17:00 10/16/20 17:29 DC 10/16/20 17:00 Ceftriaxone Sodium (Rocephin) 1 gm STK-MED ONCE .ROUTE 10/16/20 17:05 10/16/20 17:05 DC Acetaminophen (Tylenol) 650 mg PRN Q4HRS PRN PO MILD PAIN / TEMP > 100.3'F 10/16/20 19:00 10/27/20 23:06 Buspirone HCl (Buspar) 10 mg TID PO 10/16/20 21:00 10/26/20 17:23 DC 10/26/20 14:44 Calcium Carbonate/ Glycine (Tums) 500 mg PRN Q8HRS PRN PO DYSPEPSIA, 1ST CHOICE 10/16/20 19:00 Diclofenac Sodium (Voltaren) 1 stan BID TP 10/16/20 21:00 10/27/20 19:55 Divalproex Sodium (Depakote) 250 mg TID PO 10/16/20 21:00 10/27/20 19:54 Lactase (Lactaid) 3,000 unit TIDBFRMEAL PO 10/17/20 07:30 10/27/20 14:17 Magnesium Oxide (Magnesium Oxide) 400 mg NOON PO 10/17/20 12:00 10/27/20 12:00 Metoclopramide HCl (Reglan) 10 mg QIDACHS PO 10/16/20 21:00 10/24/20 19:48 DC 10/24/20 16:12 Pantoprazole Sodium (Protonix) 40 mg QHS PO 10/16/20 21:00 10/27/20 19:53 Pantoprazole Sodium (Protonix) 40 mg DAILY PO 10/17/20 09:00 UNV Risperidone (RisperDAL) 1 mg QHS PO 10/16/20 21:00 10/18/20 11:47 DC 10/17/20 20:36 Risperidone (RisperDAL) 1.5 mg DAILY PO 10/17/20 09:00 10/23/20 17:54 DC 10/23/20 09:13 Sertraline HCl (Zoloft) 200 mg DAILY PO 10/17/20 09:00 10/24/20 16:49 DC 10/24/20 08:13 Cephalexin HCl (Keflex) 500 mg BID PO 10/16/20 21:00 10/19/20 16:10 DC 10/19/20 08:07 Loperamide HCl (Imodium) 2 mg PRN Q8HRS PRN PO DIARRHEA 10/16/20 19:00 Acetaminophen (Tylenol) 650 mg PRN Q6HRS PRN PO MILD PAIN / TEMP > 100.3'F 10/16/20 19:45 UNV Multi-Ingredient Ointment (Analgesic [place]) 1 stan PRN QID PRN TP MUSCLE PAIN 10/16/20 19:45 Al Hydroxide/Mg Hydroxide (Mylanta Plus Xs) 15 ml PRN AFTMEALHC PRN PO DYSPEPSIA, 2ND CHOICE 10/16/20 19:45 Magnesium Hydroxide (Milk Of Magnesia) 2,400 mg PRN QHS PRN PO CONSTIPATION 10/16/20 19:45 10/21/20 20:48 Lactobacillus Rhamnosus (Culturelle) 1 cap BID PO 10/17/20 21:00 10/27/20 19:53 Risperidone (RisperDAL) 1.5 mg QHS PO 10/18/20 21:00 10/23/20 21:00 DC 10/23/20 20:10 Vitamin D (Vitamin D3) 50,000 unit WEEKLY PO 10/18/20 15:45 10/25/20 08:11 Doxycycline Hyclate (Vibra-Tab) 100 mg BID PO 10/19/20 21:00 10/29/20 22:00 10/27/20 19:53 Trimethoprim/ Sulfamethoxazole (Bactrim Ds) 1 tab BID PO 10/19/20 21:00 10/29/20 22:00 10/27/20 19:53 Risperidone (RisperDAL) 3 mg QHS PO 10/24/20 21:00 10/27/20 19:53 Bupropion HCl (Wellbutrin Xl) 150 mg DAILY PO 10/25/20 09:00 10/26/20 21:00 DC 10/26/20 08:09 Bupropion HCl (Wellbutrin Xl) 300 mg DAILY PO 10/27/20 09:00 10/27/20 08:23 Trazodone HCl (Desyrel) 50 mg PRN QHS PRN PO insomnia 10/27/20 21:15 Current Medications Medications (Trade) Dose Ordered Sig/Lizette Route PRN Reason Start Time Stop Time Status Last Admin Dose Admin Bupropion HCl (Wellbutrin Xl) 300 mg DAILY PO 10/27/20 09:00 10/27/20 08:23 I have reviewed the current psychotropics carefully including drug interactions. Risk benefit ratio favors no change other than as noted in my dictated progress note. Diagnosis: Problems: (1) Schizoaffective disorder, bipolar type (2) Impulse control disorder, unspecified (3) Anxiety disorder, unspecified (4) Bipolar disorder, current episode mixed, severe, with psychotic features VICTORINA BAR MD Oct 28, 2020 08:09
[2020-10-28] MEDS: DICLOFENAC SODIUM 1% TOPICAL GEL 100GM TUBE. TP SCH ×2 (08:19→20:06)
[2020-10-28] MEDS: buPROPion XL 300 MG TAB.ER.24H. PO SCH (08:19)
[2020-10-28] MEDS: DIVALPROEX SODIUM 250 MG TABLET.DR. PO SCH ×3 (08:19→20:03)
[2020-10-28] MEDS: SMZ/TMP 800/160MG TABLET. PO SCH ×2 (08:19→20:04)
[2020-10-28] MEDS: LACTASE 3,000 UNIT TABLET PO SCH ×3 (08:20→14:38)
[2020-10-28] MEDS: DOXYCYCLINE HYCLATE 100 MG TABLET PO SCH ×2 (08:20→20:04)
[2020-10-28] MEDS: LACTOBACILLUS RHAMNOSUS GG 1 CAPSULE. PO SCH ×2 (08:20→20:03)
[2020-10-28] MEDS: ACETAMINOPHEN 325 MG TABLET PO PRN ×2 (08:24→17:22)
--- NOTE | 2020-10-28 08:31 | PDOC ---
Exam Note: Dandy Note: This note is a late entry for 10/27/2020 covers elements not covered in my initial note. Subjective: The patient was seen individually in the evening of 10/27/2020 with Erik MADRIGAL, discussed and reviewed the chart. He slept 5 hours previous night. The patient has been up and about coming out of his room, more joking. He is quite over, somewhat dramatic about his physical symptoms. He states his pain is 10/10. Review of Systems: No CV, , pulmonary, eye, ENT system symptoms on review. Mental Status Exam: The patient is reasonably oriented. He is fixated on discharge before the 11/09 and I addressed this at length with him. Speech is coherent. Abstraction fair. Computation impaired. Language function intact. Attention span short. Mood and affect is improved. Laboratory Data: Reviewed. Impression: Schizoaffective disorder bipolar type mixed with psychotic features. Anxiety disorder unspecified. Impulse control disorder unspecified. Plan: Continue current psychotropics from initial note. Valproic acid level is therapeutic at 74. Risperdal 3 mg h.s., BuSpar has been stopped, Wellbutrin is being adjusted. The patient slept somewhat poorly last night at 5 hours and is wanting something p.r.n. for sleep. Discussed with Allie MADRIGAL. We will start trazodone 50 mg h.s. p.r.n. insomnia, may repeat x2 one hour apart. Assessment: Vital Signs/I&O: Vital Signs Date Time Temp Pulse Resp B/P (MAP) Pulse Ox O2 Delivery O2 Flow Rate FiO2 10/28/20 05:48 97.1 61 18 121/47 (71) 93 10/25/20 05:56 Room Air I & O 10/27/20 10/27/20 10/28/20 15:00 23:00 07:00 Intake Total 720 ml 480 ml Balance 720 ml 480 ml Current Medications: Meds: Current Medications Medications (Trade) Dose Ordered Sig/Lizette Route PRN Reason Start Time Stop Time Status Last Admin Dose Admin Ceftriaxone Sodium 1 gm/ Sodium Chloride 50 ml @ 100 mls/hr 1X ONCE IV 10/16/20 17:00 10/16/20 17:29 DC 10/16/20 17:00 Ceftriaxone Sodium (Rocephin) 1 gm STK-MED ONCE .ROUTE 10/16/20 17:05 10/16/20 17:05 DC Acetaminophen (Tylenol) 650 mg PRN Q4HRS PRN PO MILD PAIN / TEMP > 100.3'F 10/16/20 19:00 10/28/20 08:24 Buspirone HCl (Buspar) 10 mg TID PO 10/16/20 21:00 10/26/20 17:23 DC 10/26/20 14:44 Calcium Carbonate/ Glycine (Tums) 500 mg PRN Q8HRS PRN PO DYSPEPSIA, 1ST CHOICE 10/16/20 19:00 Diclofenac Sodium (Voltaren) 1 stan BID TP 10/16/20 21:00 10/27/20 19:55 Divalproex Sodium (Depakote) 250 mg TID PO 10/16/20 21:00 10/28/20 08:19 Lactase (Lactaid) 3,000 unit TIDBFRMEAL PO 10/17/20 07:30 10/28/20 08:20 Magnesium Oxide (Magnesium Oxide) 400 mg NOON PO 10/17/20 12:00 10/27/20 12:00 Metoclopramide HCl (Reglan) 10 mg QIDACHS PO 10/16/20 21:00 10/24/20 19:48 DC 10/24/20 16:12 Pantoprazole Sodium (Protonix) 40 mg QHS PO 10/16/20 21:00 10/27/20 19:53 Pantoprazole Sodium (Protonix) 40 mg DAILY PO 10/17/20 09:00 UNV Risperidone (RisperDAL) 1 mg QHS PO 10/16/20 21:00 10/18/20 11:47 DC 10/17/20 20:36 Risperidone (RisperDAL) 1.5 mg DAILY PO 10/17/20 09:00 10/23/20 17:54 DC 10/23/20 09:13 Sertraline HCl (Zoloft) 200 mg DAILY PO 10/17/20 09:00 10/24/20 16:49 DC 10/24/20 08:13 Cephalexin HCl (Keflex) 500 mg BID PO 10/16/20 21:00 10/19/20 16:10 DC 10/19/20 08:07 Loperamide HCl (Imodium) 2 mg PRN Q8HRS PRN PO DIARRHEA 10/16/20 19:00 Acetaminophen (Tylenol) 650 mg PRN Q6HRS PRN PO MILD PAIN / TEMP > 100.3'F 10/16/20 19:45 UNV Multi-Ingredient Ointment (Analgesic [place]) 1 stan PRN QID PRN TP MUSCLE PAIN 10/16/20 19:45 Al Hydroxide/Mg Hydroxide (Mylanta Plus Xs) 15 ml PRN AFTMEALHC PRN PO DYSPEPSIA, 2ND CHOICE 10/16/20 19:45 Magnesium Hydroxide (Milk Of Magnesia) 2,400 mg PRN QHS PRN PO CONSTIPATION 10/16/20 19:45 10/21/20 20:48 Lactobacillus Rhamnosus (Culturelle) 1 cap BID PO 10/17/20 21:00 10/28/20 08:20 Risperidone (RisperDAL) 1.5 mg QHS PO 10/18/20 21:00 10/23/20 21:00 DC 10/23/20 20:10 Vitamin D (Vitamin D3) 50,000 unit WEEKLY PO 10/18/20 15:45 10/25/20 08:11 Doxycycline Hyclate (Vibra-Tab) 100 mg BID PO 10/19/20 21:00 10/29/20 22:00 10/28/20 08:20 Trimethoprim/ Sulfamethoxazole (Bactrim Ds) 1 tab BID PO 10/19/20 21:00 10/29/20 22:00 10/28/20 08:19 Risperidone (RisperDAL) 3 mg QHS PO 10/24/20 21:00 10/27/20 19:53 Bupropion HCl (Wellbutrin Xl) 150 mg DAILY PO 10/25/20 09:00 10/26/20 21:00 DC 10/26/20 08:09 Bupropion HCl (Wellbutrin Xl) 300 mg DAILY PO 10/27/20 09:00 10/28/20 08:19 Trazodone HCl (Desyrel) 50 mg PRN QHS PRN PO insomnia 10/27/20 21:15 Current Medications Medications (Trade) Dose Ordered Sig/Lizette Route PRN Reason Start Time Stop Time Status Last Admin Dose Admin Bupropion HCl (Wellbutrin Xl) 300 mg DAILY PO 10/27/20 09:00 10/28/20 08:19 I have reviewed the current psychotropics carefully including drug interactions. Risk benefit ratio favors no change other than as noted in my dictated progress note. Diagnosis: Problems: (1) Schizoaffective disorder, bipolar type (2) Impulse control disorder, unspecified (3) Anxiety disorder, unspecified (4) Bipolar disorder, current episode mixed, severe, with psychotic features VICTORINA BAR MD Oct 28, 2020 08:31
[2020-10-28] MEDS: MAGNESIUM OXIDE 400 MG TABLET PO SCH (12:00)
--- NOTE | 2020-10-28 12:51 | NUR ---
Nursing Note: Pt. has been pleasant, calm, and cooperative. He has been medication compliant. Pt. has been encouraged to get out of bed outside of meal times today and he states that he would rather lay down in bed. He does seem determined to leave by the [facility]. He has had PRN Tylenol today for some slight aches and pains in his legs.
[2020-10-28 16:02] VITALS: BP 132/71
[2020-10-28] MEDS: PANTOPRAZOLE 40 MG TABLET. PO SCH (20:03)
[2020-10-28] MEDS: traZODone 50 MG TABLET. PO PRN (20:04)
[2020-10-28] MEDS: risperiDONE 1 MG TABLET. PO SCH (20:04)
--- NOTE | 2020-10-28 22:07 | PDOC ---
Exam Note: Dandy Note: Please also refer to the separate dictated note~for this date of service dictated separately.~Patient seen individually. Discussed the patient with Nursing staff reviewed the chart.~Reviewed interim history and current functioning. Reviewed vital signs,~Labs/ Radiology~and current medications noted below. Continue current treatment with the changes noted in the dictated addendum note Assessment: Vital Signs/I&O: Vital Signs Date Time Temp Pulse Resp B/P (MAP) Pulse Ox O2 Delivery O2 Flow Rate FiO2 10/28/20 16:02 98.2 69 18 132/71 (91) 95 10/25/20 05:56 Room Air I & O 10/27/20 10/27/20 10/28/20 14:59 22:59 06:59 Intake Total 720 ml 480 ml Balance 720 ml 480 ml Current Medications: Meds: Current Medications Medications (Trade) Dose Ordered Sig/Lizette Route PRN Reason Start Time Stop Time Status Last Admin Dose Admin Ceftriaxone Sodium 1 gm/ Sodium Chloride 50 ml @ 100 mls/hr 1X ONCE IV 10/16/20 17:00 10/16/20 17:29 DC 10/16/20 17:00 Ceftriaxone Sodium (Rocephin) 1 gm STK-MED ONCE .ROUTE 10/16/20 17:05 10/16/20 17:05 DC Acetaminophen (Tylenol) 650 mg PRN Q4HRS PRN PO MILD PAIN / TEMP > 100.3'F 10/16/20 19:00 10/28/20 17:22 Buspirone HCl (Buspar) 10 mg TID PO 10/16/20 21:00 10/26/20 17:23 DC 10/26/20 14:44 Calcium Carbonate/ Glycine (Tums) 500 mg PRN Q8HRS PRN PO DYSPEPSIA, 1ST CHOICE 10/16/20 19:00 Diclofenac Sodium (Voltaren) 1 stan BID TP 10/16/20 21:00 10/28/20 20:06 Divalproex Sodium (Depakote) 250 mg TID PO 10/16/20 21:00 10/28/20 20:03 Lactase (Lactaid) 3,000 unit TIDBFRMEAL PO 10/17/20 07:30 10/28/20 14:38 Magnesium Oxide (Magnesium Oxide) 400 mg NOON PO 10/17/20 12:00 10/28/20 12:00 Metoclopramide HCl (Reglan) 10 mg QIDACHS PO 10/16/20 21:00 10/24/20 19:48 DC 10/24/20 16:12 Pantoprazole Sodium (Protonix) 40 mg QHS PO 10/16/20 21:00 10/28/20 20:03 Pantoprazole Sodium (Protonix) 40 mg DAILY PO 10/17/20 09:00 UNV Risperidone (RisperDAL) 1 mg QHS PO 10/16/20 21:00 10/18/20 11:47 DC 10/17/20 20:36 Risperidone (RisperDAL) 1.5 mg DAILY PO 10/17/20 09:00 10/23/20 17:54 DC 10/23/20 09:13 Sertraline HCl (Zoloft) 200 mg DAILY PO 10/17/20 09:00 10/24/20 16:49 DC 10/24/20 08:13 Cephalexin HCl (Keflex) 500 mg BID PO 10/16/20 21:00 10/19/20 16:10 DC 10/19/20 08:07 Loperamide HCl (Imodium) 2 mg PRN Q8HRS PRN PO DIARRHEA 10/16/20 19:00 Acetaminophen (Tylenol) 650 mg PRN Q6HRS PRN PO MILD PAIN / TEMP > 100.3'F 10/16/20 19:45 UNV Multi-Ingredient Ointment (Analgesic [place]) 1 stan PRN QID PRN TP MUSCLE PAIN 10/16/20 19:45 Al Hydroxide/Mg Hydroxide (Mylanta Plus Xs) 15 ml PRN AFTMEALHC PRN PO DYSPEPSIA, 2ND CHOICE 10/16/20 19:45 Magnesium Hydroxide (Milk Of Magnesia) 2,400 mg PRN QHS PRN PO CONSTIPATION 10/16/20 19:45 10/21/20 20:48 Lactobacillus Rhamnosus (Culturelle) 1 cap BID PO 10/17/20 21:00 10/28/20 20:03 Risperidone (RisperDAL) 1.5 mg QHS PO 10/18/20 21:00 10/23/20 21:00 DC 10/23/20 20:10 Vitamin D (Vitamin D3) 50,000 unit WEEKLY PO 10/18/20 15:45 10/25/20 08:11 Doxycycline Hyclate (Vibra-Tab) 100 mg BID PO 10/19/20 21:00 10/29/20 22:00 10/28/20 20:04 Trimethoprim/ Sulfamethoxazole (Bactrim Ds) 1 tab BID PO 10/19/20 21:00 10/29/20 22:00 10/28/20 20:04 Risperidone (RisperDAL) 3 mg QHS PO 10/24/20 21:00 10/28/20 20:04 Bupropion HCl (Wellbutrin Xl) 150 mg DAILY PO 10/25/20 09:00 10/26/20 21:00 DC 10/26/20 08:09 Bupropion HCl (Wellbutrin Xl) 300 mg DAILY PO 10/27/20 09:00 10/28/20 08:19 Trazodone HCl (Desyrel) 50 mg PRN QHS PRN PO insomnia 10/27/20 21:15 10/28/20 20:04 I have reviewed the current psychotropics carefully including drug interactions. Risk benefit ratio favors no change other than as noted in my dictated progress note. Diagnosis: Problems: (1) Schizoaffective disorder, bipolar type (2) Impulse control disorder, unspecified (3) Anxiety disorder, unspecified (4) Bipolar disorder, current episode mixed, severe, with psychotic features VICTORINA BAR MD Oct 28, 2020 22:07
--- NOTE | 2020-10-28 23:07 | NUR ---
Patient is in the hallway on assumption of care, propelling around in his wheelchair. He is flat, pleasant. He is making more of an effort to come out of his room and not self-isolate. Compliant with assessments and medications whole. Requested PRN Trazodone with his HS meds. No agitation. Patient denies any pain or discomfort when asked. He appears to be sleeping comfortably at present time. Will continue to monitor.
[2020-10-29 06:00] VITALS: BP 93/67
[2020-10-29] MEDS: ACETAMINOPHEN 325 MG TABLET PO PRN ×2 (06:09→13:21)
--- NOTE | 2020-10-29 06:47 | PDOC ---
Exam Note: Dandy Note: This note is a late entry for 10/28/2020 covers elements not covered in my initial note. Subjective: The patient was seen individually in the evening of 10/28/2020 with Erik MADRIGAL, discussed and reviewed the chart. He slept 7 hours previous night. The patient refused showers at night. He does complain of knee pain. He remains obsessed of wanting to be discharged before November 09, 2020 so that he can watch Olympics. I addressed this with him. He is social at meal times, complimentary to the staff which is an improvement. Review of Systems: No CV, , pulmonary, eye, ENT system symptoms on review. Mental Status Exam: The patient is reasonably oriented. Speech is coherent. Abstraction fair. Computation impaired. Language function intact. Attention span short. Mood and affect is improved. Laboratory Data: Reviewed. Impression: Schizoaffective disorder bipolar type mixed with psychotic features. Anxiety disorder unspecified. Impulse control disorder unspecified. Plan: Continue current psychotropics from initial note. Assessment: Vital Signs/I&O: Vital Signs Date Time Temp Pulse Resp B/P (MAP) Pulse Ox O2 Delivery O2 Flow Rate FiO2 10/29/20 06:00 97.8 67 16 93/67 (76) 94 10/25/20 05:56 Room Air I & O 10/28/20 10/28/20 10/29/20 15:00 23:00 07:00 Intake Total 840 ml 840 ml Balance 840 ml 840 ml Current Medications: Meds: Current Medications Medications (Trade) Dose Ordered Sig/Lizette Route PRN Reason Start Time Stop Time Status Last Admin Dose Admin Ceftriaxone Sodium 1 gm/ Sodium Chloride 50 ml @ 100 mls/hr 1X ONCE IV 10/16/20 17:00 10/16/20 17:29 DC 10/16/20 17:00 Ceftriaxone Sodium (Rocephin) 1 gm STK-MED ONCE .ROUTE 10/16/20 17:05 10/16/20 17:05 DC Acetaminophen (Tylenol) 650 mg PRN Q4HRS PRN PO MILD PAIN / TEMP > 100.3'F 10/16/20 19:00 10/29/20 06:09 Buspirone HCl (Buspar) 10 mg TID PO 10/16/20 21:00 10/26/20 17:23 DC 10/26/20 14:44 Calcium Carbonate/ Glycine (Tums) 500 mg PRN Q8HRS PRN PO DYSPEPSIA, 1ST CHOICE 10/16/20 19:00 Diclofenac Sodium (Voltaren) 1 stan BID TP 10/16/20 21:00 10/28/20 20:06 Divalproex Sodium (Depakote) 250 mg TID PO 10/16/20 21:00 10/28/20 20:03 Lactase (Lactaid) 3,000 unit TIDBFRMEAL PO 10/17/20 07:30 10/28/20 14:38 Magnesium Oxide (Magnesium Oxide) 400 mg NOON PO 10/17/20 12:00 10/28/20 12:00 Metoclopramide HCl (Reglan) 10 mg QIDACHS PO 10/16/20 21:00 10/24/20 19:48 DC 10/24/20 16:12 Pantoprazole Sodium (Protonix) 40 mg QHS PO 10/16/20 21:00 10/28/20 20:03 Pantoprazole Sodium (Protonix) 40 mg DAILY PO 10/17/20 09:00 UNV Risperidone (RisperDAL) 1 mg QHS PO 10/16/20 21:00 10/18/20 11:47 DC 10/17/20 20:36 Risperidone (RisperDAL) 1.5 mg DAILY PO 10/17/20 09:00 10/23/20 17:54 DC 10/23/20 09:13 Sertraline HCl (Zoloft) 200 mg DAILY PO 10/17/20 09:00 10/24/20 16:49 DC 10/24/20 08:13 Cephalexin HCl (Keflex) 500 mg BID PO 10/16/20 21:00 10/19/20 16:10 DC 10/19/20 08:07 Loperamide HCl (Imodium) 2 mg PRN Q8HRS PRN PO DIARRHEA 10/16/20 19:00 Acetaminophen (Tylenol) 650 mg PRN Q6HRS PRN PO MILD PAIN / TEMP > 100.3'F 10/16/20 19:45 UNV Multi-Ingredient Ointment (Analgesic [place]) 1 stan PRN QID PRN TP MUSCLE PAIN 10/16/20 19:45 Al Hydroxide/Mg Hydroxide (Mylanta Plus Xs) 15 ml PRN AFTMEALHC PRN PO DYSPEPSIA, 2ND CHOICE 10/16/20 19:45 Magnesium Hydroxide (Milk Of Magnesia) 2,400 mg PRN QHS PRN PO CONSTIPATION 10/16/20 19:45 10/21/20 20:48 Lactobacillus Rhamnosus (Culturelle) 1 cap BID PO 10/17/20 21:00 10/28/20 20:03 Risperidone (RisperDAL) 1.5 mg QHS PO 10/18/20 21:00 10/23/20 21:00 DC 10/23/20 20:10 Vitamin D (Vitamin D3) 50,000 unit WEEKLY PO 10/18/20 15:45 10/25/20 08:11 Doxycycline Hyclate (Vibra-Tab) 100 mg BID PO 10/19/20 21:00 10/29/20 22:00 10/28/20 20:04 Trimethoprim/ Sulfamethoxazole (Bactrim Ds) 1 tab BID PO 10/19/20 21:00 10/29/20 22:00 10/28/20 20:04 Risperidone (RisperDAL) 3 mg QHS PO 10/24/20 21:00 10/28/20 20:04 Bupropion HCl (Wellbutrin Xl) 150 mg DAILY PO 10/25/20 09:00 10/26/20 21:00 DC 10/26/20 08:09 Bupropion HCl (Wellbutrin Xl) 300 mg DAILY PO 10/27/20 09:00 10/28/20 08:19 Trazodone HCl (Desyrel) 50 mg PRN QHS PRN PO insomnia 10/27/20 21:15 10/28/20 20:04 I have reviewed the current psychotropics carefully including drug interactions. Risk benefit ratio favors no change other than as noted in my dictated progress note. Diagnosis: Problems: (1) Schizoaffective disorder, bipolar type (2) Impulse control disorder, unspecified (3) Anxiety disorder, unspecified (4) Bipolar disorder, current episode mixed, severe, with psychotic features VICTORINA BAR MD Oct 29, 2020 06:47
[2020-10-29] MEDS: SMZ/TMP 800/160MG TABLET. PO SCH ×2 (08:20→21:00)
[2020-10-29] MEDS: LACTOBACILLUS RHAMNOSUS GG 1 CAPSULE. PO SCH ×2 (08:20→21:00)
[2020-10-29] MEDS: LACTASE 3,000 UNIT TABLET PO SCH ×3 (08:21→16:30)
[2020-10-29] MEDS: DOXYCYCLINE HYCLATE 100 MG TABLET PO SCH ×2 (08:21→20:59)
[2020-10-29] MEDS: DIVALPROEX SODIUM 250 MG TABLET.DR. PO SCH ×3 (08:21→21:00)
[2020-10-29] MEDS: buPROPion XL 300 MG TAB.ER.24H. PO SCH (08:21)
[2020-10-29] MEDS: DICLOFENAC SODIUM 1% TOPICAL GEL 100GM TUBE. TP SCH ×3 (08:23→21:00)
--- NOTE | 2020-10-29 09:52 | NUR ---
Pt has been present and visible on the unit today. He is compliant with whole medications. He does not interact a lot with others, however his behaviors are appropriate on the unit. He ate breakfast in the dining room, appetite appeared adequate. After breakfast he wanted to go lay down in bed. After a few minutes he returned to the dining room for a short time before retiring back to bed. Encouragement to be out of his room and among others will continue to be encouraged. Absent of SI/HI/VH/AH/delusions/pain. He is able to make his needs known and have no complaints/concerns at this time. Plan of care continues, will pass to next shift.
[2020-10-29] MEDS: MAGNESIUM OXIDE 400 MG TABLET PO SCH (12:00)
[2020-10-29 15:42] VITALS: BP 104/57
--- NOTE | 2020-10-29 16:36 | NUR ---
Wound care will see 10/31/20 for follow up
[2020-10-29] MEDS: risperiDONE 1 MG TABLET. PO SCH (21:00)
[2020-10-29] MEDS: PANTOPRAZOLE 40 MG TABLET. PO SCH (21:00)
--- NOTE | 2020-10-29 22:05 | PDOC ---
Exam Note: Dandy Note: Please also refer to the separate dictated note~for this date of service dictated separately.~Patient seen individually. Discussed the patient with Nursing staff reviewed the chart.~Reviewed interim history and current functioning. Reviewed vital signs,~Labs/ Radiology~and current medications noted below. Continue current treatment with the changes noted in the dictated addendum note Assessment: Vital Signs/I&O: Vital Signs Date Time Temp Pulse Resp B/P (MAP) Pulse Ox O2 Delivery O2 Flow Rate FiO2 10/29/20 15:42 97.2 78 16 104/57 (73) 94 10/25/20 05:56 Room Air I & O 10/28/20 10/28/20 10/29/20 15:00 23:00 07:00 Intake Total 840 ml 840 ml Balance 840 ml 840 ml Current Medications: Meds: Current Medications Medications (Trade) Dose Ordered Sig/Lizette Route PRN Reason Start Time Stop Time Status Last Admin Dose Admin Ceftriaxone Sodium 1 gm/ Sodium Chloride 50 ml @ 100 mls/hr 1X ONCE IV 10/16/20 17:00 10/16/20 17:29 DC 10/16/20 17:00 Ceftriaxone Sodium (Rocephin) 1 gm STK-MED ONCE .ROUTE 10/16/20 17:05 10/16/20 17:05 DC Acetaminophen (Tylenol) 650 mg PRN Q4HRS PRN PO MILD PAIN / TEMP > 100.3'F 10/16/20 19:00 10/29/20 13:21 Buspirone HCl (Buspar) 10 mg TID PO 10/16/20 21:00 10/26/20 17:23 DC 10/26/20 14:44 Calcium Carbonate/ Glycine (Tums) 500 mg PRN Q8HRS PRN PO DYSPEPSIA, 1ST CHOICE 10/16/20 19:00 Diclofenac Sodium (Voltaren) 1 stan BID TP 10/16/20 21:00 10/29/20 21:00 Divalproex Sodium (Depakote) 250 mg TID PO 10/16/20 21:00 10/29/20 21:00 Lactase (Lactaid) 3,000 unit TIDBFRMEAL PO 10/17/20 07:30 10/29/20 16:30 Magnesium Oxide (Magnesium Oxide) 400 mg NOON PO 10/17/20 12:00 10/29/20 12:00 Metoclopramide HCl (Reglan) 10 mg QIDACHS PO 10/16/20 21:00 10/24/20 19:48 DC 10/24/20 16:12 Pantoprazole Sodium (Protonix) 40 mg QHS PO 10/16/20 21:00 10/29/20 21:00 Pantoprazole Sodium (Protonix) 40 mg DAILY PO 10/17/20 09:00 UNV Risperidone (RisperDAL) 1 mg QHS PO 10/16/20 21:00 10/18/20 11:47 DC 10/17/20 20:36 Risperidone (RisperDAL) 1.5 mg DAILY PO 10/17/20 09:00 10/23/20 17:54 DC 10/23/20 09:13 Sertraline HCl (Zoloft) 200 mg DAILY PO 10/17/20 09:00 10/24/20 16:49 DC 10/24/20 08:13 Cephalexin HCl (Keflex) 500 mg BID PO 10/16/20 21:00 10/19/20 16:10 DC 10/19/20 08:07 Loperamide HCl (Imodium) 2 mg PRN Q8HRS PRN PO DIARRHEA 10/16/20 19:00 Acetaminophen (Tylenol) 650 mg PRN Q6HRS PRN PO MILD PAIN / TEMP > 100.3'F 10/16/20 19:45 UNV Multi-Ingredient Ointment (Analgesic [place]) 1 stan PRN QID PRN TP MUSCLE PAIN 10/16/20 19:45 Al Hydroxide/Mg Hydroxide (Mylanta Plus Xs) 15 ml PRN AFTMEALHC PRN PO DYSPEPSIA, 2ND CHOICE 10/16/20 19:45 Magnesium Hydroxide (Milk Of Magnesia) 2,400 mg PRN QHS PRN PO CONSTIPATION 10/16/20 19:45 10/21/20 20:48 Lactobacillus Rhamnosus (Culturelle) 1 cap BID PO 10/17/20 21:00 10/29/20 21:00 Risperidone (RisperDAL) 1.5 mg QHS PO 10/18/20 21:00 10/23/20 21:00 DC 10/23/20 20:10 Vitamin D (Vitamin D3) 50,000 unit WEEKLY PO 10/18/20 15:45 10/25/20 08:11 Doxycycline Hyclate (Vibra-Tab) 100 mg BID PO 10/19/20 21:00 10/29/20 22:00 DC 10/29/20 20:59 Trimethoprim/ Sulfamethoxazole (Bactrim Ds) 1 tab BID PO 10/19/20 21:00 10/29/20 22:00 DC 10/29/20 21:00 Risperidone (RisperDAL) 3 mg QHS PO 10/24/20 21:00 10/29/20 21:00 Bupropion HCl (Wellbutrin Xl) 150 mg DAILY PO 10/25/20 09:00 10/26/20 21:00 DC 10/26/20 08:09 Bupropion HCl (Wellbutrin Xl) 300 mg DAILY PO 10/27/20 09:00 10/29/20 08:21 Trazodone HCl (Desyrel) 50 mg PRN QHS PRN PO insomnia 10/27/20 21:15 10/28/20 20:04 I have reviewed the current psychotropics carefully including drug interactions. Risk benefit ratio favors no change other than as noted in my dictated progress note. Diagnosis: Problems: (1) Schizoaffective disorder, bipolar type (2) Impulse control disorder, unspecified (3) Anxiety disorder, unspecified (4) Bipolar disorder, current episode mixed, severe, with psychotic features VICTORINA BAR MD Oct 29, 2020 22:04
--- NOTE | 2020-10-29 22:22 | NUR ---
Nursing Note The patient was located in his room for his assessment and medication pass. The patient was compliant with medication and took them whole. The patient was cooperative with his assessment and was able to state name, date and location. The patient discussed various movies and quoted several. The patient and this nurse discussed the movie "[email or web address]." The patient was pleasant and appropriate during interactions with this nurse.
--- NOTE | 2020-10-30 07:09 | PDOC ---
Exam Note: Dandy Note: This note is a late entry for 10/29/2020 covers elements not covered in my initial note. Subjective: The patient was seen individually in the evening of 10/29/2020 with Raven MADRIGAL, discussed and reviewed the chart. He slept 7-3/4 hours previous night. I met with him in the dayroom. He was out on the unit for breakfast, later in bed but out for supper. He is compliant with medications. Review of Systems: Ambulation impaired in wheelchair. No CV, , pulmonary, eye, ENT system symptoms on review. Mental Status Exam: The patient is reasonably oriented. Speech is coherent, quite animated, verbal. Abstraction fair. Computation impaired. Language function intact. Attention span short. Mood and affect is improved. No suicidal or homicidal ideation. Laboratory Data: Reviewed. Impression: Schizoaffective disorder bipolar type mixed with psychotic features. Anxiety disorder unspecified. Impulse control disorder unspecified. Plan: Continue current psychotropics from initial note. Assessment: Vital Signs/I&O: Vital Signs Date Time Temp Pulse Resp B/P (MAP) Pulse Ox O2 Delivery O2 Flow Rate FiO2 10/29/20 15:42 97.2 78 16 104/57 (73) 94 10/25/20 05:56 Room Air I & O 10/29/20 10/29/20 10/30/20 15:00 23:00 07:00 Intake Total 600 ml 720 ml Balance 600 ml 720 ml Current Medications: Meds: Current Medications Medications (Trade) Dose Ordered Sig/Lizette Route PRN Reason Start Time Stop Time Status Last Admin Dose Admin Ceftriaxone Sodium 1 gm/ Sodium Chloride 50 ml @ 100 mls/hr 1X ONCE IV 10/16/20 17:00 10/16/20 17:29 DC 10/16/20 17:00 Ceftriaxone Sodium (Rocephin) 1 gm STK-MED ONCE .ROUTE 10/16/20 17:05 10/16/20 17:05 DC Acetaminophen (Tylenol) 650 mg PRN Q4HRS PRN PO MILD PAIN / TEMP > 100.3'F 10/16/20 19:00 10/29/20 13:21 Buspirone HCl (Buspar) 10 mg TID PO 10/16/20 21:00 10/26/20 17:23 DC 10/26/20 14:44 Calcium Carbonate/ Glycine (Tums) 500 mg PRN Q8HRS PRN PO DYSPEPSIA, 1ST CHOICE 10/16/20 19:00 Diclofenac Sodium (Voltaren) 1 stan BID TP 10/16/20 21:00 10/29/20 21:00 Divalproex Sodium (Depakote) 250 mg TID PO 10/16/20 21:00 10/29/20 21:00 Lactase (Lactaid) 3,000 unit TIDBFRMEAL PO 10/17/20 07:30 10/29/20 16:30 Magnesium Oxide (Magnesium Oxide) 400 mg NOON PO 10/17/20 12:00 10/29/20 12:00 Metoclopramide HCl (Reglan) 10 mg QIDACHS PO 10/16/20 21:00 10/24/20 19:48 DC 10/24/20 16:12 Pantoprazole Sodium (Protonix) 40 mg QHS PO 10/16/20 21:00 10/29/20 21:00 Pantoprazole Sodium (Protonix) 40 mg DAILY PO 10/17/20 09:00 UNV Risperidone (RisperDAL) 1 mg QHS PO 10/16/20 21:00 10/18/20 11:47 DC 10/17/20 20:36 Risperidone (RisperDAL) 1.5 mg DAILY PO 10/17/20 09:00 10/23/20 17:54 DC 10/23/20 09:13 Sertraline HCl (Zoloft) 200 mg DAILY PO 10/17/20 09:00 10/24/20 16:49 DC 10/24/20 08:13 Cephalexin HCl (Keflex) 500 mg BID PO 10/16/20 21:00 10/19/20 16:10 DC 10/19/20 08:07 Loperamide HCl (Imodium) 2 mg PRN Q8HRS PRN PO DIARRHEA 10/16/20 19:00 Acetaminophen (Tylenol) 650 mg PRN Q6HRS PRN PO MILD PAIN / TEMP > 100.3'F 10/16/20 19:45 UNV Multi-Ingredient Ointment (Analgesic [place]) 1 stan PRN QID PRN TP MUSCLE PAIN 10/16/20 19:45 Al Hydroxide/Mg Hydroxide (Mylanta Plus Xs) 15 ml PRN AFTMEALHC PRN PO DYSPEPSIA, 2ND CHOICE 10/16/20 19:45 Magnesium Hydroxide (Milk Of Magnesia) 2,400 mg PRN QHS PRN PO CONSTIPATION 10/16/20 19:45 10/21/20 20:48 Lactobacillus Rhamnosus (Culturelle) 1 cap BID PO 10/17/20 21:00 10/29/20 21:00 Risperidone (RisperDAL) 1.5 mg QHS PO 10/18/20 21:00 10/23/20 21:00 DC 10/23/20 20:10 Vitamin D (Vitamin D3) 50,000 unit WEEKLY PO 10/18/20 15:45 10/25/20 08:11 Doxycycline Hyclate (Vibra-Tab) 100 mg BID PO 10/19/20 21:00 10/29/20 22:00 DC 10/29/20 20:59 Trimethoprim/ Sulfamethoxazole (Bactrim Ds) 1 tab BID PO 10/19/20 21:00 10/29/20 22:00 DC 10/29/20 21:00 Risperidone (RisperDAL) 3 mg QHS PO 10/24/20 21:00 10/29/20 21:00 Bupropion HCl (Wellbutrin Xl) 150 mg DAILY PO 10/25/20 09:00 10/26/20 21:00 DC 10/26/20 08:09 Bupropion HCl (Wellbutrin Xl) 300 mg DAILY PO 10/27/20 09:00 10/29/20 08:21 Trazodone HCl (Desyrel) 50 mg PRN QHS PRN PO insomnia 10/27/20 21:15 10/28/20 20:04 I have reviewed the current psychotropics carefully including drug interactions. Risk benefit ratio favors no change other than as noted in my dictated progress note. Diagnosis: Problems: (1) Schizoaffective disorder, bipolar type (2) Impulse control disorder, unspecified (3) Anxiety disorder, unspecified (4) Bipolar disorder, current episode mixed, severe, with psychotic features VICTORINA BAR MD Oct 30, 2020 07:09
[2020-10-30] MEDS: DIVALPROEX SODIUM 250 MG TABLET.DR. PO SCH ×3 (08:14→20:09)
[2020-10-30] MEDS: LACTASE 3,000 UNIT TABLET PO SCH ×3 (08:14→17:20)
[2020-10-30] MEDS: DICLOFENAC SODIUM 1% TOPICAL GEL 100GM TUBE. TP SCH ×2 (08:14→20:10)
[2020-10-30] MEDS: buPROPion XL 300 MG TAB.ER.24H. PO SCH (08:14)
[2020-10-30] MEDS: LACTOBACILLUS RHAMNOSUS GG 1 CAPSULE. PO SCH ×2 (08:14→20:09)
[2020-10-30 09:17] VITALS: BP 105/63
--- NOTE | 2020-10-30 11:50 | NUR ---
Nursing Note Patient assessment and medication pass done w/o difficulty. Patient has flat affect but answers questions appropriately. Patient withdrawn to self and likes to self isolate in room. Patient encouraged to come to day room and interact/participate in activities.
[2020-10-30] MEDS: MAGNESIUM OXIDE 400 MG TABLET PO SCH (12:00)
[2020-10-30 16:04] VITALS: BP 133/71
[2020-10-30] MEDS: PANTOPRAZOLE 40 MG TABLET. PO SCH (20:09)
[2020-10-30] MEDS: risperiDONE 1 MG TABLET. PO SCH (20:09)
--- NOTE | 2020-10-30 22:04 | PDOC ---
Exam Note: Dandy Note: Please also refer to the separate dictated note~for this date of service dictated separately.~Patient seen individually. Discussed the patient with Nursing staff reviewed the chart.~Reviewed interim history and current functioning. Reviewed vital signs,~Labs/ Radiology~and current medications noted below. Continue current treatment with the changes noted in the dictated addendum note Assessment: Vital Signs/I&O: Vital Signs Date Time Temp Pulse Resp B/P (MAP) Pulse Ox O2 Delivery O2 Flow Rate FiO2 10/30/20 16:04 96.7 85 18 133/71 (91) 94 10/25/20 05:56 Room Air I & O 10/29/20 10/29/20 10/30/20 15:00 23:00 07:00 Intake Total 600 ml 720 ml Balance 600 ml 720 ml Current Medications: Meds: Current Medications Medications (Trade) Dose Ordered Sig/Lizette Route PRN Reason Start Time Stop Time Status Last Admin Dose Admin Ceftriaxone Sodium 1 gm/ Sodium Chloride 50 ml @ 100 mls/hr 1X ONCE IV 10/16/20 17:00 10/16/20 17:29 DC 10/16/20 17:00 Ceftriaxone Sodium (Rocephin) 1 gm STK-MED ONCE .ROUTE 10/16/20 17:05 10/16/20 17:05 DC Acetaminophen (Tylenol) 650 mg PRN Q4HRS PRN PO MILD PAIN / TEMP > 100.3'F 10/16/20 19:00 10/29/20 13:21 Buspirone HCl (Buspar) 10 mg TID PO 10/16/20 21:00 10/26/20 17:23 DC 10/26/20 14:44 Calcium Carbonate/ Glycine (Tums) 500 mg PRN Q8HRS PRN PO DYSPEPSIA, 1ST CHOICE 10/16/20 19:00 Diclofenac Sodium (Voltaren) 1 stan BID TP 10/16/20 21:00 10/30/20 20:10 Divalproex Sodium (Depakote) 250 mg TID PO 10/16/20 21:00 10/30/20 20:09 Lactase (Lactaid) 3,000 unit TIDBFRMEAL PO 10/17/20 07:30 10/30/20 17:20 Magnesium Oxide (Magnesium Oxide) 400 mg NOON PO 10/17/20 12:00 10/30/20 12:00 Metoclopramide HCl (Reglan) 10 mg QIDACHS PO 10/16/20 21:00 10/24/20 19:48 DC 10/24/20 16:12 Pantoprazole Sodium (Protonix) 40 mg QHS PO 10/16/20 21:00 10/30/20 20:09 Pantoprazole Sodium (Protonix) 40 mg DAILY PO 10/17/20 09:00 UNV Risperidone (RisperDAL) 1 mg QHS PO 10/16/20 21:00 10/18/20 11:47 DC 10/17/20 20:36 Risperidone (RisperDAL) 1.5 mg DAILY PO 10/17/20 09:00 10/23/20 17:54 DC 10/23/20 09:13 Sertraline HCl (Zoloft) 200 mg DAILY PO 10/17/20 09:00 10/24/20 16:49 DC 10/24/20 08:13 Cephalexin HCl (Keflex) 500 mg BID PO 10/16/20 21:00 10/19/20 16:10 DC 10/19/20 08:07 Loperamide HCl (Imodium) 2 mg PRN Q8HRS PRN PO DIARRHEA 10/16/20 19:00 Acetaminophen (Tylenol) 650 mg PRN Q6HRS PRN PO MILD PAIN / TEMP > 100.3'F 10/16/20 19:45 UNV Multi-Ingredient Ointment (Analgesic [place]) 1 stan PRN QID PRN TP MUSCLE PAIN 10/16/20 19:45 Al Hydroxide/Mg Hydroxide (Mylanta Plus Xs) 15 ml PRN AFTMEALHC PRN PO DYSPEPSIA, 2ND CHOICE 10/16/20 19:45 Magnesium Hydroxide (Milk Of Magnesia) 2,400 mg PRN QHS PRN PO CONSTIPATION 10/16/20 19:45 10/21/20 20:48 Lactobacillus Rhamnosus (Culturelle) 1 cap BID PO 10/17/20 21:00 10/30/20 20:09 Risperidone (RisperDAL) 1.5 mg QHS PO 10/18/20 21:00 10/23/20 21:00 DC 10/23/20 20:10 Vitamin D (Vitamin D3) 50,000 unit WEEKLY PO 10/18/20 15:45 10/25/20 08:11 Doxycycline Hyclate (Vibra-Tab) 100 mg BID PO 10/19/20 21:00 10/29/20 22:00 DC 10/29/20 20:59 Trimethoprim/ Sulfamethoxazole (Bactrim Ds) 1 tab BID PO 10/19/20 21:00 10/29/20 22:00 DC 10/29/20 21:00 Risperidone (RisperDAL) 3 mg QHS PO 10/24/20 21:00 10/30/20 20:09 Bupropion HCl (Wellbutrin Xl) 150 mg DAILY PO 10/25/20 09:00 10/26/20 21:00 DC 10/26/20 08:09 Bupropion HCl (Wellbutrin Xl) 300 mg DAILY PO 10/27/20 09:00 10/30/20 08:14 Trazodone HCl (Desyrel) 50 mg PRN QHS PRN PO insomnia 10/27/20 21:15 10/28/20 20:04 I have reviewed the current psychotropics carefully including drug interactions. Risk benefit ratio favors no change other than as noted in my dictated progress note. Diagnosis: Problems: (1) Schizoaffective disorder, bipolar type (2) Impulse control disorder, unspecified (3) Anxiety disorder, unspecified (4) Bipolar disorder, current episode mixed, severe, with psychotic features VICTORINA BAR MD Oct 30, 2020 22:04
--- NOTE | 2020-10-31 03:37 | NUR ---
Nursing Note The patient was located in his room for his assessment and medication pass. The patient took his medication whole. The patient was alert to name, date and location. The patient was pleasant and appropriate during interactions with this nurse. The patient is currently sleeping in his room.
[2020-10-31 06:21] VITALS: BP 134/78
--- NOTE | 2020-10-31 06:59 | PDOC ---
Exam Note: Dandy Note: This note is a late entry for 10/30/2020 covers elements not covered in my initial note. Subjective: The patient was seen individually in the evening of 10/30/2020 with Bonilla MADRIGAL, discussed and reviewed the chart. He slept 8 hours previous night. The patient has been withdrawn, spending much time in his room. He had defecated partly in his room, assisted staff at cleanup. I encouraged him to come out of the dayroom. Review of Systems: Ambulation impaired in wheelchair. Complains of tiredness. No CV, , pulmonary, eye, ENT system symptoms on review. Mental Status Exam: The patient is reasonably oriented. Speech is coherent, quite animated, verbal. Abstraction fair. Computation impaired. Language function intact. Attention span short. Mood and affect is improved. No suicidal or homicidal ideation. Laboratory Data: Reviewed. Impression: Schizoaffective disorder bipolar type mixed with psychotic features. Anxiety disorder unspecified. Impulse control disorder unspecified. Plan: Continue current psychotropics from initial note. Assessment: Vital Signs/I&O: Vital Signs Date Time Temp Pulse Resp B/P (MAP) Pulse Ox O2 Delivery O2 Flow Rate FiO2 10/31/20 06:21 96.8 72 20 134/78 (96) 99 I & O 10/30/20 10/30/20 10/31/20 15:00 23:00 07:00 Intake Total 840 ml 600 ml Balance 840 ml 600 ml Current Medications: Meds: Current Medications Medications (Trade) Dose Ordered Sig/Lizette Route PRN Reason Start Time Stop Time Status Last Admin Dose Admin Ceftriaxone Sodium 1 gm/ Sodium Chloride 50 ml @ 100 mls/hr 1X ONCE IV 10/16/20 17:00 10/16/20 17:29 DC 10/16/20 17:00 Ceftriaxone Sodium (Rocephin) 1 gm STK-MED ONCE .ROUTE 10/16/20 17:05 10/16/20 17:05 DC Acetaminophen (Tylenol) 650 mg PRN Q4HRS PRN PO MILD PAIN / TEMP > 100.3'F 10/16/20 19:00 10/29/20 13:21 Buspirone HCl (Buspar) 10 mg TID PO 10/16/20 21:00 10/26/20 17:23 DC 10/26/20 14:44 Calcium Carbonate/ Glycine (Tums) 500 mg PRN Q8HRS PRN PO DYSPEPSIA, 1ST CHOICE 10/16/20 19:00 Diclofenac Sodium (Voltaren) 1 stan BID TP 10/16/20 21:00 10/30/20 20:10 Divalproex Sodium (Depakote) 250 mg TID PO 10/16/20 21:00 10/30/20 20:09 Lactase (Lactaid) 3,000 unit TIDBFRMEAL PO 10/17/20 07:30 10/30/20 17:20 Magnesium Oxide (Magnesium Oxide) 400 mg NOON PO 10/17/20 12:00 10/30/20 12:00 Metoclopramide HCl (Reglan) 10 mg QIDACHS PO 10/16/20 21:00 10/24/20 19:48 DC 10/24/20 16:12 Pantoprazole Sodium (Protonix) 40 mg QHS PO 10/16/20 21:00 10/30/20 20:09 Pantoprazole Sodium (Protonix) 40 mg DAILY PO 10/17/20 09:00 UNV Risperidone (RisperDAL) 1 mg QHS PO 10/16/20 21:00 10/18/20 11:47 DC 10/17/20 20:36 Risperidone (RisperDAL) 1.5 mg DAILY PO 10/17/20 09:00 10/23/20 17:54 DC 10/23/20 09:13 Sertraline HCl (Zoloft) 200 mg DAILY PO 10/17/20 09:00 10/24/20 16:49 DC 10/24/20 08:13 Cephalexin HCl (Keflex) 500 mg BID PO 10/16/20 21:00 10/19/20 16:10 DC 10/19/20 08:07 Loperamide HCl (Imodium) 2 mg PRN Q8HRS PRN PO DIARRHEA 10/16/20 19:00 Acetaminophen (Tylenol) 650 mg PRN Q6HRS PRN PO MILD PAIN / TEMP > 100.3'F 10/16/20 19:45 UNV Multi-Ingredient Ointment (Analgesic [place]) 1 stan PRN QID PRN TP MUSCLE PAIN 10/16/20 19:45 Al Hydroxide/Mg Hydroxide (Mylanta Plus Xs) 15 ml PRN AFTMEALHC PRN PO DYSPEPSIA, 2ND CHOICE 10/16/20 19:45 Magnesium Hydroxide (Milk Of Magnesia) 2,400 mg PRN QHS PRN PO CONSTIPATION 10/16/20 19:45 10/21/20 20:48 Lactobacillus Rhamnosus (Culturelle) 1 cap BID PO 10/17/20 21:00 10/30/20 20:09 Risperidone (RisperDAL) 1.5 mg QHS PO 10/18/20 21:00 10/23/20 21:00 DC 10/23/20 20:10 Vitamin D (Vitamin D3) 50,000 unit WEEKLY PO 10/18/20 15:45 10/25/20 08:11 Doxycycline Hyclate (Vibra-Tab) 100 mg BID PO 10/19/20 21:00 10/29/20 22:00 DC 10/29/20 20:59 Trimethoprim/ Sulfamethoxazole (Bactrim Ds) 1 tab BID PO 10/19/20 21:00 10/29/20 22:00 DC 10/29/20 21:00 Risperidone (RisperDAL) 3 mg QHS PO 10/24/20 21:00 10/30/20 20:09 Bupropion HCl (Wellbutrin Xl) 150 mg DAILY PO 10/25/20 09:00 10/26/20 21:00 DC 10/26/20 08:09 Bupropion HCl (Wellbutrin Xl) 300 mg DAILY PO 10/27/20 09:00 10/30/20 08:14 Trazodone HCl (Desyrel) 50 mg PRN QHS PRN PO insomnia 10/27/20 21:15 10/28/20 20:04 I have reviewed the current psychotropics carefully including drug interactions. Risk benefit ratio favors no change other than as noted in my dictated progress note. Diagnosis: Problems: (1) Schizoaffective disorder, bipolar type (2) Impulse control disorder, unspecified (3) Anxiety disorder, unspecified (4) Bipolar disorder, current episode mixed, severe, with psychotic features VICTORINA BAR MD Oct 31, 2020 06:59
[2020-10-31] MEDS: LACTOBACILLUS RHAMNOSUS GG 1 CAPSULE. PO SCH ×2 (07:58→20:10)
[2020-10-31] MEDS: LACTASE 3,000 UNIT TABLET PO SCH ×3 (07:58→17:20)
[2020-10-31] MEDS: buPROPion XL 300 MG TAB.ER.24H. PO SCH (07:58)
[2020-10-31] MEDS: DIVALPROEX SODIUM 250 MG TABLET.DR. PO SCH ×3 (07:58→20:10)
[2020-10-31] MEDS: DICLOFENAC SODIUM 1% TOPICAL GEL 100GM TUBE. TP SCH ×2 (08:46→20:10)
[2020-10-31] MEDS: MAGNESIUM OXIDE 400 MG TABLET PO SCH (12:16)
--- NOTE | 2020-10-31 13:18 | NUR ---
game agent had already changed dressing this morning as pt had urinated on it. WC saw wound on Thursday with GAVIOTA Evans so will follow up again next week for reassessment.
--- NOTE | 2020-10-31 14:05 | NUR ---
NSG NOTE; Raul has been calm, cooperative and med compliant today. he stayed up in his w/c after breakfast but has gone back to bed after lunch.
[2020-10-31 16:01] VITALS: BP 106/70
--- NOTE | 2020-10-31 17:43 | NUR ---
NSG NOTE; Despite encouragement, Raul refused to get OOB to the dining room for dinner and refused to take his 1630 sched Lactase.
[2020-10-31] MEDS: risperiDONE 1 MG TABLET. PO SCH (20:10)
[2020-10-31] MEDS: PANTOPRAZOLE 40 MG TABLET. PO SCH (20:10)
--- NOTE | 2020-10-31 22:12 | PDOC ---
Exam Note: Dandy Note: Please also refer to the separate dictated note~for this date of service dictated separately.~Patient seen individually. Discussed the patient with Nursing staff reviewed the chart.~Reviewed interim history and current functioning. Reviewed vital signs,~Labs/ Radiology~and current medications noted below. Continue current treatment with the changes noted in the dictated addendum note Assessment: Vital Signs/I&O: Vital Signs Date Time Temp Pulse Resp B/P (MAP) Pulse Ox O2 Delivery O2 Flow Rate FiO2 10/31/20 16:01 97.8 74 16 106/70 (82) 94 I & O 10/30/20 10/30/20 10/31/20 15:00 23:00 07:00 Intake Total 840 ml 600 ml Balance 840 ml 600 ml Current Medications: Meds: Current Medications Medications (Trade) Dose Ordered Sig/Lizette Route PRN Reason Start Time Stop Time Status Last Admin Dose Admin Ceftriaxone Sodium 1 gm/ Sodium Chloride 50 ml @ 100 mls/hr 1X ONCE IV 10/16/20 17:00 10/16/20 17:29 DC 10/16/20 17:00 Ceftriaxone Sodium (Rocephin) 1 gm STK-MED ONCE .ROUTE 10/16/20 17:05 10/16/20 17:05 DC Acetaminophen (Tylenol) 650 mg PRN Q4HRS PRN PO MILD PAIN / TEMP > 100.3'F 10/16/20 19:00 10/29/20 13:21 Buspirone HCl (Buspar) 10 mg TID PO 10/16/20 21:00 10/26/20 17:23 DC 10/26/20 14:44 Calcium Carbonate/ Glycine (Tums) 500 mg PRN Q8HRS PRN PO DYSPEPSIA, 1ST CHOICE 10/16/20 19:00 Diclofenac Sodium (Voltaren) 1 stan BID TP 10/16/20 21:00 10/31/20 20:10 Divalproex Sodium (Depakote) 250 mg TID PO 10/16/20 21:00 10/31/20 20:10 Lactase (Lactaid) 3,000 unit TIDBFRMEAL PO 10/17/20 07:30 10/31/20 12:16 Magnesium Oxide (Magnesium Oxide) 400 mg NOON PO 10/17/20 12:00 10/31/20 12:16 Metoclopramide HCl (Reglan) 10 mg QIDACHS PO 10/16/20 21:00 10/24/20 19:48 DC 10/24/20 16:12 Pantoprazole Sodium (Protonix) 40 mg QHS PO 10/16/20 21:00 10/31/20 20:10 Pantoprazole Sodium (Protonix) 40 mg DAILY PO 10/17/20 09:00 UNV Risperidone (RisperDAL) 1 mg QHS PO 10/16/20 21:00 10/18/20 11:47 DC 10/17/20 20:36 Risperidone (RisperDAL) 1.5 mg DAILY PO 10/17/20 09:00 10/23/20 17:54 DC 10/23/20 09:13 Sertraline HCl (Zoloft) 200 mg DAILY PO 10/17/20 09:00 10/24/20 16:49 DC 10/24/20 08:13 Cephalexin HCl (Keflex) 500 mg BID PO 10/16/20 21:00 10/19/20 16:10 DC 10/19/20 08:07 Loperamide HCl (Imodium) 2 mg PRN Q8HRS PRN PO DIARRHEA 10/16/20 19:00 Acetaminophen (Tylenol) 650 mg PRN Q6HRS PRN PO MILD PAIN / TEMP > 100.3'F 10/16/20 19:45 UNV Multi-Ingredient Ointment (Analgesic [place]) 1 stan PRN QID PRN TP MUSCLE PAIN 10/16/20 19:45 Al Hydroxide/Mg Hydroxide (Mylanta Plus Xs) 15 ml PRN AFTMEALHC PRN PO DYSPEPSIA, 2ND CHOICE 10/16/20 19:45 Magnesium Hydroxide (Milk Of Magnesia) 2,400 mg PRN QHS PRN PO CONSTIPATION 10/16/20 19:45 10/21/20 20:48 Lactobacillus Rhamnosus (Culturelle) 1 cap BID PO 10/17/20 21:00 10/31/20 20:10 Risperidone (RisperDAL) 1.5 mg QHS PO 10/18/20 21:00 10/23/20 21:00 DC 10/23/20 20:10 Vitamin D (Vitamin D3) 50,000 unit WEEKLY PO 10/18/20 15:45 10/25/20 08:11 Doxycycline Hyclate (Vibra-Tab) 100 mg BID PO 10/19/20 21:00 10/29/20 22:00 DC 10/29/20 20:59 Trimethoprim/ Sulfamethoxazole (Bactrim Ds) 1 tab BID PO 10/19/20 21:00 10/29/20 22:00 DC 10/29/20 21:00 Risperidone (RisperDAL) 3 mg QHS PO 10/24/20 21:00 10/31/20 20:10 Bupropion HCl (Wellbutrin Xl) 150 mg DAILY PO 10/25/20 09:00 10/26/20 21:00 DC 10/26/20 08:09 Bupropion HCl (Wellbutrin Xl) 300 mg DAILY PO 10/27/20 09:00 10/31/20 16:17 DC 10/31/20 07:58 Trazodone HCl (Desyrel) 50 mg PRN QHS PRN PO insomnia 10/27/20 21:15 10/28/20 20:04 Bupropion HCl (Wellbutrin Xl) 450 mg DAILY PO 11/01/20 09:00 I have reviewed the current psychotropics carefully including drug interactions. Risk benefit ratio favors no change other than as noted in my dictated progress note. Diagnosis: Problems: (1) Schizoaffective disorder, bipolar type (2) Impulse control disorder, unspecified (3) Anxiety disorder, unspecified (4) Bipolar disorder, current episode mixed, severe, with psychotic features VICTORINA BAR MD Oct 31, 2020 22:12
--- NOTE | 2020-11-01 02:09 | NUR ---
Nursing Note The patient was located in his room for his assessment and medication pass. The patient took his medication whole. The patient was pleasant during interactions with this nurse. The patient was alert to name,date and location. The patient is currently sleeping in his room.
[2020-11-01 06:23] VITALS: BP 121/67
--- NOTE | 2020-11-01 08:10 | PDOC ---
Exam Note: Dandy Note: This note is a late entry for 10/31/2020 covers elements not covered in my initial note. Subjective: The patient was seen individually in the evening of 10/31/2020 with Laura MADRIGAL, discussed and reviewed the chart. He slept 7 hours previous night. The patient is compliant with night-time medications. Today he has been fairly calm, somewhat withdrawn, isolative, spending much time in his room. Review of Systems: Ambulation impaired in wheelchair. No CV, , pulmonary, eye, ENT system symptoms on review. Mental Status Exam: The patient is reasonably oriented. Speech is coherent, moderate latency. Abstraction fair. Computation impaired. Language function intact. Attention span short. Mood and affect is withdrawn. No suicidal or homicidal ideation. Laboratory Data: Reviewed. Impression: Schizoaffective disorder bipolar type mixed with psychotic features. Anxiety disorder unspecified. Impulse control disorder unspecified. Plan: Continue current psychotropics from initial note. Increase Wellbutrin XL from 300 mg a day to 450 mg a day. Maintain Depakote, Risperdal, trazodone unchanged for now. Adjust further as clinically indicated. Assessment: Vital Signs/I&O: Vital Signs Date Time Temp Pulse Resp B/P (MAP) Pulse Ox O2 Delivery O2 Flow Rate FiO2 11/01/20 06:23 97.6 62 20 121/67 (85) 99 Room Air I & O 10/31/20 10/31/20 11/01/20 15:00 23:00 07:00 Intake Total 720 ml 240 ml Balance 720 ml 240 ml Current Medications: Meds: Current Medications Medications (Trade) Dose Ordered Sig/Lizette Route PRN Reason Start Time Stop Time Status Last Admin Dose Admin Ceftriaxone Sodium 1 gm/ Sodium Chloride 50 ml @ 100 mls/hr 1X ONCE IV 10/16/20 17:00 10/16/20 17:29 DC 10/16/20 17:00 Ceftriaxone Sodium (Rocephin) 1 gm STK-MED ONCE .ROUTE 10/16/20 17:05 10/16/20 17:05 DC Acetaminophen (Tylenol) 650 mg PRN Q4HRS PRN PO MILD PAIN / TEMP > 100.3'F 10/16/20 19:00 10/29/20 13:21 Buspirone HCl (Buspar) 10 mg TID PO 10/16/20 21:00 10/26/20 17:23 DC 10/26/20 14:44 Calcium Carbonate/ Glycine (Tums) 500 mg PRN Q8HRS PRN PO DYSPEPSIA, 1ST CHOICE 10/16/20 19:00 Diclofenac Sodium (Voltaren) 1 stan BID TP 10/16/20 21:00 10/31/20 20:10 Divalproex Sodium (Depakote) 250 mg TID PO 10/16/20 21:00 10/31/20 20:10 Lactase (Lactaid) 3,000 unit TIDBFRMEAL PO 10/17/20 07:30 10/31/20 12:16 Magnesium Oxide (Magnesium Oxide) 400 mg NOON PO 10/17/20 12:00 10/31/20 12:16 Metoclopramide HCl (Reglan) 10 mg QIDACHS PO 10/16/20 21:00 10/24/20 19:48 DC 10/24/20 16:12 Pantoprazole Sodium (Protonix) 40 mg QHS PO 10/16/20 21:00 10/31/20 20:10 Pantoprazole Sodium (Protonix) 40 mg DAILY PO 10/17/20 09:00 UNV Risperidone (RisperDAL) 1 mg QHS PO 10/16/20 21:00 10/18/20 11:47 DC 10/17/20 20:36 Risperidone (RisperDAL) 1.5 mg DAILY PO 10/17/20 09:00 10/23/20 17:54 DC 10/23/20 09:13 Sertraline HCl (Zoloft) 200 mg DAILY PO 10/17/20 09:00 10/24/20 16:49 DC 10/24/20 08:13 Cephalexin HCl (Keflex) 500 mg BID PO 10/16/20 21:00 10/19/20 16:10 DC 10/19/20 08:07 Loperamide HCl (Imodium) 2 mg PRN Q8HRS PRN PO DIARRHEA 10/16/20 19:00 Acetaminophen (Tylenol) 650 mg PRN Q6HRS PRN PO MILD PAIN / TEMP > 100.3'F 10/16/20 19:45 UNV Multi-Ingredient Ointment (Analgesic [place]) 1 stan PRN QID PRN TP MUSCLE PAIN 10/16/20 19:45 Al Hydroxide/Mg Hydroxide (Mylanta Plus Xs) 15 ml PRN AFTMEALHC PRN PO DYSPEPSIA, 2ND CHOICE 10/16/20 19:45 Magnesium Hydroxide (Milk Of Magnesia) 2,400 mg PRN QHS PRN PO CONSTIPATION 10/16/20 19:45 10/21/20 20:48 Lactobacillus Rhamnosus (Culturelle) 1 cap BID PO 10/17/20 21:00 10/31/20 20:10 Risperidone (RisperDAL) 1.5 mg QHS PO 10/18/20 21:00 10/23/20 21:00 DC 10/23/20 20:10 Vitamin D (Vitamin D3) 50,000 unit WEEKLY PO 10/18/20 15:45 10/25/20 08:11 Doxycycline Hyclate (Vibra-Tab) 100 mg BID PO 10/19/20 21:00 10/29/20 22:00 DC 10/29/20 20:59 Trimethoprim/ Sulfamethoxazole (Bactrim Ds) 1 tab BID PO 10/19/20 21:00 10/29/20 22:00 DC 10/29/20 21:00 Risperidone (RisperDAL) 3 mg QHS PO 10/24/20 21:00 10/31/20 20:10 Bupropion HCl (Wellbutrin Xl) 150 mg DAILY PO 10/25/20 09:00 10/26/20 21:00 DC 10/26/20 08:09 Bupropion HCl (Wellbutrin Xl) 300 mg DAILY PO 10/27/20 09:00 10/31/20 16:17 DC 10/31/20 07:58 Trazodone HCl (Desyrel) 50 mg PRN QHS PRN PO insomnia 10/27/20 21:15 10/28/20 20:04 Bupropion HCl (Wellbutrin Xl) 450 mg DAILY PO 11/01/20 09:00 I have reviewed the current psychotropics carefully including drug interactions. Risk benefit ratio favors no change other than as noted in my dictated progress note. Diagnosis: Problems: (1) Schizoaffective disorder, bipolar type (2) Impulse control disorder, unspecified (3) Anxiety disorder, unspecified (4) Bipolar disorder, current episode mixed, severe, with psychotic features VICTORINA BAR MD Nov 01, 2020 08:10
[2020-11-01] MEDS: buPROPion XL 150 MG TAB.ER.24H PO SCH (08:17)
[2020-11-01] MEDS: LACTOBACILLUS RHAMNOSUS GG 1 CAPSULE. PO SCH ×2 (08:18→21:00)
[2020-11-01] MEDS: DIVALPROEX SODIUM 250 MG TABLET.DR. PO SCH ×3 (08:18→21:00)
[2020-11-01] MEDS: CHOLECALCIFEROL (VITAMIN D3) 50,000 UNIT CAPSULE PO SCH (08:18)
[2020-11-01] MEDS: LACTASE 3,000 UNIT TABLET PO SCH ×3 (08:18→17:51)
[2020-11-01] MEDS: DICLOFENAC SODIUM 1% TOPICAL GEL 100GM TUBE. TP SCH ×3 (08:20→21:00)
[2020-11-01] MEDS: MAGNESIUM OXIDE 400 MG TABLET PO SCH (12:20)
--- NOTE | 2020-11-01 12:25 | NUR ---
WEEKLY ACTIVITY THERAPY NOTE Date of Admission: 10/16/20 Date of AT Assessment: 10/18 Precipitating behaviors that initiated intake and admission: throwing self on floor, lacks motivation, physically & verbally aggressive towards staff, refuses cares & lays in urine & feces, agitated, threw walker at staff, yells at peers Goal aimed: to increase engagement Initial Goal: Pt. will participate in at least three individual or Activity Therapy groups before discharge. Weekly progress towards goal: on track(10/24-chocolate milkshakes and fun facts, 10/25-horseshoes and music) Group participation level: 1 min Weekly highlights: tossed horseshoe a couple of times afternoon Behaviors observed: withdrawn to room Plan: no change to goal at this time Beneficial adaptations: encouragement
--- NOTE | 2020-11-01 12:39 | TX PLAN ---
Interdisciplinary Tx Plan Admission Information Oct 16, 2020 at 18:00 Legal Status (on Admission): Voluntary DPOA/Guardian Name: Sister/DPOA-Carolina Sanchez Contact Other Contact Name: Adan Other Contact [phone] Verified Code Status: Full Code Allergies: Coded Allergies: lactose (Verified Allergy, Unknown, Diarrhea, 10/16/20) [place] reports extreme GI upset, explosive stools if patient gets any lactose. Diagnoses Primary Diagnosis: (1) Impulse control disorder, unspecified (2) Anxiety disorder, unspecified (3) Bipolar disorder, current episode mixed, severe, with psychotic features (4) Schizoaffective disorder, bipolar type Reasons for Admission: Aggressive, Agitated, Depressed, Angry, Combative, Isolating, Poor impulse control Problem in Patient's Words: Per pt, "I don't know why I'm here." Per DPOA/Sister, Carolina, pt will deny the reasoning for his admission. He never really used to lie that I was aware of, but he just doesn't accept ownership. Carolina also reports that in pt's history he went through a pretty rough divorce because he had found out that he couldn't have children and his apparently really wanted children. Consequently, they ended up and he seemed to slip into depression and eventually lost his job. "I don't think he really ever recovered from that." Carolina describes him as becoming a loner. Additional Admission Comments: Per intake record, throwing self on floor, lacks motivation, physically and verbally aggressive toward staff, refuses cares and lays in urine/feces, agitated, threw walker at staff, yells at peers. Problems Active Problems: Agitated, isolates, demonstrates depression, flat affect, denies symptoms/lacks insight into mental health needs Inactive Problems: combative, aggressive Pt Strengths/Limitations Ability for [place]: Poor Cognitive Functioning/Ability: Fair Communication Skills/Ability: Fair Financial Resources: Poor Insight/Judgement: Poor Intellectual Ability: Fair Physical Health: Poor Social Skills: Fair Stability in Family: Fair Stability in School/Work: Fair Verbal Skills: Fair Discharge Criteria Discharge Criteria: Adequate arrangements @DC, Adequate self-care, Verbal commit med comply, Improved mood/thought Other Discharge Comments: None noted Preliminary Discharge Plan Preliminary DC Plan: Current Living Arrange. Special Precautions Special Precautions: Agitation/Assault Fall Risk: Moderate Initial D/C Plan Plan is for pt to return to his facility at [facility] Identified Discharge Needs: None noted Currently Utilized Resources Currently Utilized Resources/P: PCP Sister/DPOA-[facility]-contact is Kathleen or Cyn Referrals Community Resources: None noted at this time. Identified Problems/Hx/Goals Objectives/Short-Term Goals Short Term Goals: Control abnormal behavior, Dec. Aggression, Decrease Isolation, Dec. Outbursts, Dec. Symp. Depression, Improved Social Skills, Medication Stabilization, Monitor Med Effects, Promote Coping Skill Short Term Goals in Patient's: To demonstrate less depression,agitation, aggression, and be more compliant with self-cares along with respectful to others. Interventions/Frequency Staff Interventions/Frequency&: Psychiatry to assess pt three times per week for medication management. Nursing to assess behaviors, monitor medications, and complete 15 minute checks daily. Social work to see pt at least two times weekly to aid in return to placement. Activities to encourage pt to participate in group activities daily. 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 Education: Pt reports that he graduated high school from [place], [place] and he completed [employer] in [place], [place]. Community Follow-up PCP Community Provider/Family Inpu: Pt sister/DPALDAIR aware of pt hospitalization and is available for further information as needed. Treatment Plan Explained Patient/Emergency Room Rn had this treatment plan explained to him/her as indicated by the signature below and has been given the opportunity to ask questions and make suggestions: Date: Patient/Emergency Room Rn Signature: Status Update Update Pt eats continues to eat well; eating 100% of his meals. He continues to average 7 hours of sleep each night. Pt does have some incontinent episodes, but has shown more interest in trying to make it to the toilet. Pt needs encouragement to attend groups. He does want to try to discharge before the Olympics start, so this is being used as a motivational prompt to try to get him to be more engaged as well as more focused on self care. Pt's Wellbutrin continues to be gradually increased. Discharge plan is for pt to return to [facility] once stable. ROSE RUANO Nov 01, 2020 12:39
--- NOTE | 2020-11-01 14:23 | NUR ---
Weekly Note: Pt continues to eat well; eating 100% of his meals. He continues to average 7 hours of sleep each night. Pt does have some incontinent episodes, but has shown more interest in trying to make it to the toilet. Pt needs encouragement to attend groups. He does want to try to discharge before the Olymp start, so this is being used as a motivational prompt to try to get him to be more engaged as well as more focused on self care. Pt's Wellbutrin continues to be gradually increased. PILAR spoke with Kathleen from pt facility, [facility], to discuss discharge date of next Thursday11/06/20. Kathleen will call PILAR back with a p/u time. PILAR faxed updates. Transmittal sent successfully. PILAR attempted to call pt sister/DPOA, Carolina. Unable to leave vm as no answering system picked up. PILAR will continue to outreach Carolina.
[2020-11-01 15:50] VITALS: BP 126/73
--- NOTE | 2020-11-01 18:30 | NUR ---
Patient has been calm, compliant, and mildly confused throughout this shift. He has spent all of his time between meals withdrawn to his room. Will continue to monitor and report to oncoming shift.
[2020-11-01] MEDS: PANTOPRAZOLE 40 MG TABLET. PO SCH (21:00)
[2020-11-01] MEDS: risperiDONE 1 MG TABLET. PO SCH (21:00)
[2020-11-01] MEDS: MAG HYDROX/AL HYDROX/SIMETH 30 ML ORAL.SUSP PO PRN (21:01)
--- NOTE | 2020-11-01 22:09 | PDOC ---
Exam Note: Dandy Note: Please also refer to the separate dictated note~for this date of service dictated separately.~Patient seen individually. Discussed the patient with Nursing staff reviewed the chart.~Reviewed interim history and current functioning. Reviewed vital signs,~Labs/ Radiology~and current medications noted below. Continue current treatment with the changes noted in the dictated addendum note Assessment: Vital Signs/I&O: Vital Signs Date Time Temp Pulse Resp B/P (MAP) Pulse Ox O2 Delivery O2 Flow Rate FiO2 11/01/20 15:50 97.9 74 18 126/73 (90) 96 11/01/20 06:23 Room Air I & O 10/31/20 10/31/20 11/01/20 15:00 23:00 07:00 Intake Total 720 ml 240 ml Balance 720 ml 240 ml Current Medications: Meds: Current Medications Medications (Trade) Dose Ordered Sig/Lizette Route PRN Reason Start Time Stop Time Status Last Admin Dose Admin Ceftriaxone Sodium 1 gm/ Sodium Chloride 50 ml @ 100 mls/hr 1X ONCE IV 10/16/20 17:00 10/16/20 17:29 DC 10/16/20 17:00 Ceftriaxone Sodium (Rocephin) 1 gm STK-MED ONCE .ROUTE 10/16/20 17:05 10/16/20 17:05 DC Acetaminophen (Tylenol) 650 mg PRN Q4HRS PRN PO MILD PAIN / TEMP > 100.3'F 10/16/20 19:00 10/29/20 13:21 Buspirone HCl (Buspar) 10 mg TID PO 10/16/20 21:00 10/26/20 17:23 DC 10/26/20 14:44 Calcium Carbonate/ Glycine (Tums) 500 mg PRN Q8HRS PRN PO DYSPEPSIA, 1ST CHOICE 10/16/20 19:00 Diclofenac Sodium (Voltaren) 1 stan BID TP 10/16/20 21:00 11/01/20 21:00 Divalproex Sodium (Depakote) 250 mg TID PO 10/16/20 21:00 11/01/20 21:00 Lactase (Lactaid) 3,000 unit TIDBFRMEAL PO 10/17/20 07:30 11/01/20 17:51 Magnesium Oxide (Magnesium Oxide) 400 mg NOON PO 10/17/20 12:00 11/01/20 12:20 Metoclopramide HCl (Reglan) 10 mg QIDACHS PO 10/16/20 21:00 10/24/20 19:48 DC 10/24/20 16:12 Pantoprazole Sodium (Protonix) 40 mg QHS PO 10/16/20 21:00 11/01/20 21:00 Pantoprazole Sodium (Protonix) 40 mg DAILY PO 10/17/20 09:00 UNV Risperidone (RisperDAL) 1 mg QHS PO 10/16/20 21:00 10/18/20 11:47 DC 10/17/20 20:36 Risperidone (RisperDAL) 1.5 mg DAILY PO 10/17/20 09:00 10/23/20 17:54 DC 10/23/20 09:13 Sertraline HCl (Zoloft) 200 mg DAILY PO 10/17/20 09:00 10/24/20 16:49 DC 10/24/20 08:13 Cephalexin HCl (Keflex) 500 mg BID PO 10/16/20 21:00 10/19/20 16:10 DC 10/19/20 08:07 Loperamide HCl (Imodium) 2 mg PRN Q8HRS PRN PO DIARRHEA 10/16/20 19:00 Acetaminophen (Tylenol) 650 mg PRN Q6HRS PRN PO MILD PAIN / TEMP > 100.3'F 10/16/20 19:45 UNV Multi-Ingredient Ointment (Analgesic [place]) 1 stan PRN QID PRN TP MUSCLE PAIN 10/16/20 19:45 Al Hydroxide/Mg Hydroxide (Mylanta Plus Xs) 15 ml PRN AFTMEALHC PRN PO DYSPEPSIA, 2ND CHOICE 10/16/20 19:45 11/01/20 21:01 Magnesium Hydroxide (Milk Of Magnesia) 2,400 mg PRN QHS PRN PO CONSTIPATION 10/16/20 19:45 10/21/20 20:48 Lactobacillus Rhamnosus (Culturelle) 1 cap BID PO 10/17/20 21:00 11/01/20 21:00 Risperidone (RisperDAL) 1.5 mg QHS PO 10/18/20 21:00 10/23/20 21:00 DC 10/23/20 20:10 Vitamin D (Vitamin D3) 50,000 unit WEEKLY PO 10/18/20 15:45 11/01/20 08:18 Doxycycline Hyclate (Vibra-Tab) 100 mg BID PO 10/19/20 21:00 10/29/20 22:00 DC 10/29/20 20:59 Trimethoprim/ Sulfamethoxazole (Bactrim Ds) 1 tab BID PO 10/19/20 21:00 10/29/20 22:00 DC 10/29/20 21:00 Risperidone (RisperDAL) 3 mg QHS PO 10/24/20 21:00 11/01/20 21:00 Bupropion HCl (Wellbutrin Xl) 150 mg DAILY PO 10/25/20 09:00 10/26/20 21:00 DC 10/26/20 08:09 Bupropion HCl (Wellbutrin Xl) 300 mg DAILY PO 10/27/20 09:00 10/31/20 16:17 DC 10/31/20 07:58 Trazodone HCl (Desyrel) 50 mg PRN QHS PRN PO insomnia 10/27/20 21:15 10/28/20 20:04 Bupropion HCl (Wellbutrin Xl) 450 mg DAILY PO 11/01/20 09:00 11/01/20 08:17 Current Medications Medications (Trade) Dose Ordered Sig/Lizette Route PRN Reason Start Time Stop Time Status Last Admin Dose Admin Bupropion HCl (Wellbutrin Xl) 450 mg DAILY PO 11/01/20 09:00 11/01/20 08:17 I have reviewed the current psychotropics carefully including drug interactions. Risk benefit ratio favors no change other than as noted in my dictated progress note. Diagnosis: Problems: (1) Schizoaffective disorder, bipolar type (2) Impulse control disorder, unspecified (3) Anxiety disorder, unspecified (4) Bipolar disorder, current episode mixed, severe, with psychotic features VICTORINA BAR MD Nov 01, 2020 22:09
--- NOTE | 2020-11-01 22:50 | NUR ---
Patient is located in his room on assumption of care, awake in bed. He has been in his room for most of the evening. Complained of upset stomach and asked for PRN Maalox, which he received with his HS meds. Compliant with assessments and medications whole. No agitation. Patient denies any pain or discomfort when asked. He appears to be sleeping comfortably at present time. Will continue to monitor.
[2020-11-02 06:19] VITALS: BP 158/79
[2020-11-02 07:18] LABS: BASO # 0.1 x10^3/uL (0.0-0.2); BASO % 1 % (0-3); EOS # 0.2 x10^3/uL (0.0-0.7); EOS % 3 % (0-3); HEMATOCRIT 42.7 % (39.0-53.0); HEMOGLOBIN 14.2 g/dL (13.0-17.5); LYMPH # 2.5 x10^3/uL (1.0-4.8); LYMPH % 35 % (24-48); MEAN CORPUSCULAR HEMOGLOBIN 33 pg (25-35); MEAN CORPUSCULAR HGB CONC 33 g/dL (31-37); MEAN CORPUSCULAR VOLUME 99 fL (79-100); MONO # 0.6 x10^3/uL (0.0-1.1); MONO % 9 % (0-9); NEUT # 3.8 x10^3uL (1.8-7.7); NEUT % 53 % (31-73); PLATELET COUNT 244 x10^3/uL (140-400); RED CELL DISTRIBUTION WIDTH 14.3 % (11.5-14.5); WHITE BLOOD COUNT 7.2 x10^3/uL (4.0-11.0)
[2020-11-02 07:34] LABS: ALBUMIN 2.8 g/dL (3.4-5.0); ALBUMIN/GLOBULIN RATIO 0.8 (1.0-1.7); CALCIUM 8.5 mg/dL (8.5-10.1); CREATININE 0.9 mg/dL (0.7-1.3); GFR 84.7; POTASSIUM 4.2 mmol/L (3.5-5.1); TOTAL BILIRUBIN 0.4 mg/dL (0.2-1.0); TOTAL PROTEIN 6.1 g/dL (6.4-8.2)
[2020-11-02] MEDS: buPROPion XL 150 MG TAB.ER.24H PO SCH (08:06)
[2020-11-02] MEDS: LACTASE 3,000 UNIT TABLET PO SCH ×3 (08:06→17:19)
[2020-11-02] MEDS: LACTOBACILLUS RHAMNOSUS GG 1 CAPSULE. PO SCH ×2 (08:06→20:42)
[2020-11-02] MEDS: DICLOFENAC SODIUM 1% TOPICAL GEL 100GM TUBE. TP SCH ×2 (08:06→20:45)
[2020-11-02] MEDS: DIVALPROEX SODIUM 250 MG TABLET.DR. PO SCH ×3 (08:06→20:42)
[2020-11-02] MEDS: MAGNESIUM OXIDE 400 MG TABLET PO SCH (08:06)
--- NOTE | 2020-11-02 09:19 | NUR ---
EVS reports patient has fecal matter under his bed. On inspection, large pile of fecal matter was found on the floor between patient's bed and wall. There is a smear of feces in his wheelchair and patient's bed and clothes are soaked in urine. When asked, patient states he does not know what happened. Patient to be showered then instructed not to stay in bed and to ask for help when he needs to use the bathroom.
--- NOTE | 2020-11-02 12:37 | NUR ---
[facility] Social Work Discharge Planning Form Patient Name RAYO TERESA Admit Date: 10/16/20 DISCHARGE PLAN Discharge Destination: [facility] Care Assessment: No Level II Assessment: No Transportation: Facility will transport. P/u time TBD. Special Instructions/Notes: Please fax signed med list and visit summary. DISCHARGE TO FACILITY Facility: [facility] Address: [address] [place] [id number] Contact Name: PILAR Wang PCP: Dr. Lopez Psychiatrist: None
--- NOTE | 2020-11-02 12:48 | NUR ---
Nurse Note Patient up in day room for a short while with encouragement. from staff to participate in group therapy. Patient in bed for a about 15 minutes before lunch has not put fecal matter behind bed or side of bed at this time. Patient encouraged to come out of room for group and socialization but refused. No further behaviors at this time.
[2020-11-02 15:56] VITALS: BP 110/65
[2020-11-02] MEDS: risperiDONE 1 MG TABLET. PO SCH (20:42)
[2020-11-02] MEDS: ACETAMINOPHEN 325 MG TABLET PO PRN (20:43)
[2020-11-02] MEDS: PANTOPRAZOLE 40 MG TABLET. PO SCH (20:43)
[2020-11-02] MEDS: traZODone 50 MG TABLET. PO PRN (20:44)
--- NOTE | 2020-11-02 21:59 | PDOC ---
Exam Note: Dandy Note: Please also refer to the separate dictated note~for this date of service dictated separately.~Patient seen individually. Discussed the patient with Nursing staff reviewed the chart.~Reviewed interim history and current functioning. Reviewed vital signs,~Labs/ Radiology~and current medications noted below. Continue current treatment with the changes noted in the dictated addendum note Assessment: Vital Signs/I&O: Vital Signs Date Time Temp Pulse Resp B/P (MAP) Pulse Ox O2 Delivery O2 Flow Rate FiO2 11/02/20 15:56 97.3 91 20 110/65 (80) 95 11/01/20 06:23 Room Air I & O 11/01/20 11/01/20 11/02/20 15:00 23:00 07:00 Intake Total 720 ml 600 ml Balance 720 ml 600 ml Labs: Laboratory Tests Test 11/02/20 07:00 White Blood Count 7.2 x10^3/uL (4.0-11.0) Red Blood Count 4.30 x10^6/uL (4.30-5.70) Hemoglobin 14.2 g/dL (13.0-17.5) Hematocrit 42.7 % (39.0-53.0) Mean Corpuscular Volume 99 fL (79-100) Mean Corpuscular Hemoglobin 33 pg (25-35) Mean Corpuscular Hemoglobin Concent 33 g/dL (31-37) Red Cell Distribution Width 14.3 % (11.5-14.5) Platelet Count 244 x10^3/uL (140-400) Neutrophils (%) (Auto) 53 % (31-73) Lymphocytes (%) (Auto) 35 % (24-48) Monocytes (%) (Auto) 9 % (0-9) Eosinophils (%) (Auto) 3 % (0-3) Basophils (%) (Auto) 1 % (0-3) Neutrophils # (Auto) 3.8 x10^3uL (1.8-7.7) Lymphocytes # (Auto) 2.5 x10^3/uL (1.0-4.8) Monocytes # (Auto) 0.6 x10^3/uL (0.0-1.1) Eosinophils # (Auto) 0.2 x10^3/uL (0.0-0.7) Basophils # (Auto) 0.1 x10^3/uL (0.0-0.2) Sodium Level 143 mmol/L (136-145) Potassium Level 4.2 mmol/L (3.5-5.1) Chloride Level 107 mmol/L (98-107) Carbon Dioxide Level 29 mmol/L (21-32) Anion Gap 7 (6-14) Blood Urea Nitrogen 19 mg/dL (8-26) Creatinine 0.9 mg/dL (0.7-1.3) Estimated GFR (Cockcroft-Gault) 84.7 BUN/Creatinine Ratio 21 (6-20) H Glucose Level 79 mg/dL (70-99) Calcium Level 8.5 mg/dL (8.5-10.1) Total Bilirubin 0.4 mg/dL (0.2-1.0) Aspartate Amino Transferase (AST) 20 U/L (15-37) Alanine Aminotransferase (ALT) 25 U/L (16-63) Alkaline Phosphatase 139 U/L (46-116) H Total Protein 6.1 g/dL (6.4-8.2) L Albumin 2.8 g/dL (3.4-5.0) L Albumin/Globulin Ratio 0.8 (1.0-1.7) L Current Medications: Meds: Laboratory Tests Test 11/02/20 07:00 White Blood Count 7.2 x10^3/uL Red Blood Count 4.30 x10^6/uL Hemoglobin 14.2 g/dL Hematocrit 42.7 % Mean Corpuscular Volume 99 fL Mean Corpuscular Hemoglobin 33 pg Mean Corpuscular Hemoglobin Concent 33 g/dL Red Cell Distribution Width 14.3 % Platelet Count 244 x10^3/uL Neutrophils (%) (Auto) 53 % Lymphocytes (%) (Auto) 35 % Monocytes (%) (Auto) 9 % Eosinophils (%) (Auto) 3 % Basophils (%) (Auto) 1 % Neutrophils # (Auto) 3.8 x10^3uL Lymphocytes # (Auto) 2.5 x10^3/uL Monocytes # (Auto) 0.6 x10^3/uL Eosinophils # (Auto) 0.2 x10^3/uL Basophils # (Auto) 0.1 x10^3/uL Sodium Level 143 mmol/L Potassium Level 4.2 mmol/L Chloride Level 107 mmol/L Carbon Dioxide Level 29 mmol/L Anion Gap 7 Blood Urea Nitrogen 19 mg/dL Creatinine 0.9 mg/dL Estimated GFR (Cockcroft-Gault) 84.7 BUN/Creatinine Ratio 21 Glucose Level 79 mg/dL Calcium Level 8.5 mg/dL Total Bilirubin 0.4 mg/dL Aspartate Amino Transf (AST/SGOT) 20 U/L Alanine Aminotransferase (ALT/SGPT) 25 U/L Alkaline Phosphatase 139 U/L Total Protein 6.1 g/dL Albumin 2.8 g/dL Albumin/Globulin Ratio 0.8 Current Medications Medications (Trade) Dose Ordered Sig/Lizette Route PRN Reason Start Time Stop Time Status Last Admin Dose Admin Ceftriaxone Sodium 1 gm/ Sodium Chloride 50 ml @ 100 mls/hr 1X ONCE IV 10/16/20 17:00 10/16/20 17:29 DC 10/16/20 17:00 Ceftriaxone Sodium (Rocephin) 1 gm STK-MED ONCE .ROUTE 10/16/20 17:05 10/16/20 17:05 DC Acetaminophen (Tylenol) 650 mg PRN Q4HRS PRN PO MILD PAIN / TEMP > 100.3'F 10/16/20 19:00 11/02/20 20:43 Buspirone HCl (Buspar) 10 mg TID PO 10/16/20 21:00 10/26/20 17:23 DC 10/26/20 14:44 Calcium Carbonate/ Glycine (Tums) 500 mg PRN Q8HRS PRN PO DYSPEPSIA, 1ST CHOICE 10/16/20 19:00 Diclofenac Sodium (Voltaren) 1 stan BID TP 10/16/20 21:00 11/02/20 20:45 Divalproex Sodium (Depakote) 250 mg TID PO 10/16/20 21:00 11/02/20 20:42 Lactase (Lactaid) 3,000 unit TIDBFRMEAL PO 10/17/20 07:30 11/02/20 17:19 Magnesium Oxide (Magnesium Oxide) 400 mg NOON PO 10/17/20 12:00 11/02/20 08:06 Metoclopramide HCl (Reglan) 10 mg QIDACHS PO 10/16/20 21:00 10/24/20 19:48 DC 10/24/20 16:12 Pantoprazole Sodium (Protonix) 40 mg QHS PO 10/16/20 21:00 11/02/20 20:43 Pantoprazole Sodium (Protonix) 40 mg DAILY PO 10/17/20 09:00 UNV Risperidone (RisperDAL) 1 mg QHS PO 10/16/20 21:00 10/18/20 11:47 DC 10/17/20 20:36 Risperidone (RisperDAL) 1.5 mg DAILY PO 10/17/20 09:00 10/23/20 17:54 DC 10/23/20 09:13 Sertraline HCl (Zoloft) 200 mg DAILY PO 10/17/20 09:00 10/24/20 16:49 DC 10/24/20 08:13 Cephalexin HCl (Keflex) 500 mg BID PO 10/16/20 21:00 10/19/20 16:10 DC 10/19/20 08:07 Loperamide HCl (Imodium) 2 mg PRN Q8HRS PRN PO DIARRHEA 10/16/20 19:00 Acetaminophen (Tylenol) 650 mg PRN Q6HRS PRN PO MILD PAIN / TEMP > 100.3'F 10/16/20 19:45 UNV Multi-Ingredient Ointment (Analgesic [place]) 1 stan PRN QID PRN TP MUSCLE PAIN 10/16/20 19:45 Al Hydroxide/Mg Hydroxide (Mylanta Plus Xs) 15 ml PRN AFTMEALHC PRN PO DYSPEPSIA, 2ND CHOICE 10/16/20 19:45 11/01/20 21:01 Magnesium Hydroxide (Milk Of Magnesia) 2,400 mg PRN QHS PRN PO CONSTIPATION 10/16/20 19:45 10/21/20 20:48 Lactobacillus Rhamnosus (Culturelle) 1 cap BID PO 10/17/20 21:00 11/02/20 20:42 Risperidone (RisperDAL) 1.5 mg QHS PO 10/18/20 21:00 10/23/20 21:00 DC 10/23/20 20:10 Vitamin D (Vitamin D3) 50,000 unit WEEKLY PO 10/18/20 15:45 11/01/20 08:18 Doxycycline Hyclate (Vibra-Tab) 100 mg BID PO 10/19/20 21:00 10/29/20 22:00 DC 10/29/20 20:59 Trimethoprim/ Sulfamethoxazole (Bactrim Ds) 1 tab BID PO 10/19/20 21:00 10/29/20 22:00 DC 10/29/20 21:00 Risperidone (RisperDAL) 3 mg QHS PO 10/24/20 21:00 11/02/20 20:42 Bupropion HCl (Wellbutrin Xl) 150 mg DAILY PO 10/25/20 09:00 10/26/20 21:00 DC 10/26/20 08:09 Bupropion HCl (Wellbutrin Xl) 300 mg DAILY PO 10/27/20 09:00 10/31/20 16:17 DC 10/31/20 07:58 Trazodone HCl (Desyrel) 50 mg PRN QHS PRN PO insomnia 10/27/20 21:15 11/02/20 20:44 Bupropion HCl (Wellbutrin Xl) 450 mg DAILY PO 11/01/20 09:00 11/02/20 08:06 I have reviewed the current psychotropics carefully including drug interactions. Risk benefit ratio favors no change other than as noted in my dictated progress note. Diagnosis: Problems: (1) Schizoaffective disorder, bipolar type (2) Impulse control disorder, unspecified (3) Anxiety disorder, unspecified (4) Bipolar disorder, current episode mixed, severe, with psychotic features VICTORINA BAR MD Nov 02, 2020 21:58
[2020-11-03] MEDS: traZODone 50 MG TABLET. PO PRN ×2 (00:49→20:14)
--- NOTE | 2020-11-03 03:11 | NUR ---
Patient is located in his room on assumption of care, awake in bed. He has been in his room for most of the evening. Requested to have Tylenol for knee pain and Trazodone with his HS meds. Cooperative with shower and HS care. Patient got a new roommate this evening, who began yelling at patient and telling him to get out of his house. Patient was moved to a different room at that time. Due to all of the excitement, patient was unable to fall back to sleep and requested a repeat Trazodone, which he received at 0100, with good effect. Compliant with assessments and medications whole. No agitation. Patient denies any pain or discomfort when asked. He appears to be sleeping comfortably at present time. Will continue to monitor.
[2020-11-03 05:47] VITALS: BP 105/53
[2020-11-03] MEDS: LACTASE 3,000 UNIT TABLET PO SCH ×3 (07:53→17:30)
[2020-11-03] MEDS: DIVALPROEX SODIUM 250 MG TABLET.DR. PO SCH ×3 (07:53→20:14)
[2020-11-03] MEDS: LACTOBACILLUS RHAMNOSUS GG 1 CAPSULE. PO SCH ×2 (07:53→20:13)
[2020-11-03] MEDS: buPROPion XL 150 MG TAB.ER.24H PO SCH (07:53)
[2020-11-03] MEDS: ACETAMINOPHEN 325 MG TABLET PO PRN ×4 (07:54→20:14)
--- NOTE | 2020-11-03 08:46 | PDOC ---
Exam Note: Dandy Note: This note is a late entry for 11/01/2020 covers elements not covered in my initial note. Subjective: The patient was seen individually in the morning of 11/01/2020 for a treatment team meeting with Trista Perez, Lisa Calzada (social professionals), Tiffany, activity therapy and Catrachito MADRIGAL, discussed and reviewed the chart. Discussed his progress, current psychotropics, reviewed drug interactions, risk-benefit ratio. He slept 6-3/4 hours previous night. Sleep average 7 hours. Appetite is 100%. The patient has been intermittently incontinent and then was asked to clean up himself and now takes himself to the toilet more regularly. He has attended one group in the past one week with minimal participation. He seems to have a pressure ulcer which staff is monitoring. We will defer to Dr. Angel/Dr. Gamez. He was quite verbal, interactive in the evening. Review of Systems: Ambulation impaired in wheelchair. No CV, , pulmonary, ey e, ENT system symptoms on review. Mental Status Exam: The patient is reasonably oriented. Speech is coherent. Abstraction fair. Computation impaired. Language function intact. Attention span short. Mood and affect is withdrawn. No suicidal or homicidal ideation. Laboratory Data: Reviewed. Impression: Schizoaffective disorder bipolar type mixed with psychotic features. Anxiety disorder unspecified. Impulse control disorder unspecified. Plan: Continue to adjust psychotropics as clinically indicated. Assessment: Vital Signs/I&O: Vital Signs Date Time Temp Pulse Resp B/P (MAP) Pulse Ox O2 Delivery O2 Flow Rate FiO2 11/03/20 05:47 97.5 64 16 105/53 (70) 97 Room Air I & O 11/02/20 11/02/20 11/03/20 15:00 23:00 07:00 Intake Total 990 ml 240 ml 240 ml Balance 990 ml 240 ml 240 ml Current Medications: Meds: Current Medications Medications (Trade) Dose Ordered Sig/Lizette Route PRN Reason Start Time Stop Time Status Last Admin Dose Admin Ceftriaxone Sodium 1 gm/ Sodium Chloride 50 ml @ 100 mls/hr 1X ONCE IV 10/16/20 17:00 10/16/20 17:29 DC 10/16/20 17:00 Ceftriaxone Sodium (Rocephin) 1 gm STK-MED ONCE .ROUTE 10/16/20 17:05 10/16/20 17:05 DC Acetaminophen (Tylenol) 650 mg PRN Q4HRS PRN PO MILD PAIN / TEMP > 100.3'F 10/16/20 19:00 11/03/20 07:54 Buspirone HCl (Buspar) 10 mg TID PO 10/16/20 21:00 10/26/20 17:23 DC 10/26/20 14:44 Calcium Carbonate/ Glycine (Tums) 500 mg PRN Q8HRS PRN PO DYSPEPSIA, 1ST CHOICE 10/16/20 19:00 Diclofenac Sodium (Voltaren) 1 stan BID TP 10/16/20 21:00 11/02/20 20:45 Divalproex Sodium (Depakote) 250 mg TID PO 10/16/20 21:00 11/03/20 07:53 Lactase (Lactaid) 3,000 unit TIDBFRMEAL PO 10/17/20 07:30 11/03/20 07:53 Magnesium Oxide (Magnesium Oxide) 400 mg NOON PO 10/17/20 12:00 11/02/20 08:06 Metoclopramide HCl (Reglan) 10 mg QIDACHS PO 10/16/20 21:00 10/24/20 19:48 DC 10/24/20 16:12 Pantoprazole Sodium (Protonix) 40 mg QHS PO 10/16/20 21:00 11/02/20 20:43 Pantoprazole Sodium (Protonix) 40 mg DAILY PO 10/17/20 09:00 UNV Risperidone (RisperDAL) 1 mg QHS PO 10/16/20 21:00 10/18/20 11:47 DC 10/17/20 20:36 Risperidone (RisperDAL) 1.5 mg DAILY PO 10/17/20 09:00 10/23/20 17:54 DC 10/23/20 09:13 Sertraline HCl (Zoloft) 200 mg DAILY PO 10/17/20 09:00 10/24/20 16:49 DC 10/24/20 08:13 Cephalexin HCl (Keflex) 500 mg BID PO 10/16/20 21:00 10/19/20 16:10 DC 10/19/20 08:07 Loperamide HCl (Imodium) 2 mg PRN Q8HRS PRN PO DIARRHEA 10/16/20 19:00 Acetaminophen (Tylenol) 650 mg PRN Q6HRS PRN PO MILD PAIN / TEMP > 100.3'F 10/16/20 19:45 UNV Multi-Ingredient Ointment (Analgesic [place]) 1 stan PRN QID PRN TP MUSCLE PAIN 10/16/20 19:45 Al Hydroxide/Mg Hydroxide (Mylanta Plus Xs) 15 ml PRN AFTMEALHC PRN PO DYSPEPSIA, 2ND CHOICE 10/16/20 19:45 11/01/20 21:01 Magnesium Hydroxide (Milk Of Magnesia) 2,400 mg PRN QHS PRN PO CONSTIPATION 10/16/20 19:45 10/21/20 20:48 Lactobacillus Rhamnosus (Culturelle) 1 cap BID PO 10/17/20 21:00 11/03/20 07:53 Risperidone (RisperDAL) 1.5 mg QHS PO 10/18/20 21:00 10/23/20 21:00 DC 10/23/20 20:10 Vitamin D (Vitamin D3) 50,000 unit WEEKLY PO 10/18/20 15:45 11/01/20 08:18 Doxycycline Hyclate (Vibra-Tab) 100 mg BID PO 10/19/20 21:00 10/29/20 22:00 DC 10/29/20 20:59 Trimethoprim/ Sulfamethoxazole (Bactrim Ds) 1 tab BID PO 10/19/20 21:00 10/29/20 22:00 DC 10/29/20 21:00 Risperidone (RisperDAL) 3 mg QHS PO 10/24/20 21:00 11/02/20 20:42 Bupropion HCl (Wellbutrin Xl) 150 mg DAILY PO 10/25/20 09:00 10/26/20 21:00 DC 10/26/20 08:09 Bupropion HCl (Wellbutrin Xl) 300 mg DAILY PO 10/27/20 09:00 10/31/20 16:17 DC 10/31/20 07:58 Trazodone HCl (Desyrel) 50 mg PRN QHS PRN PO insomnia 10/27/20 21:15 11/03/20 00:49 Bupropion HCl (Wellbutrin Xl) 450 mg DAILY PO 11/01/20 09:00 11/03/20 07:53 I have reviewed the current psychotropics carefully including drug interactions. Risk benefit ratio favors no change other than as noted in my dictated progress note. Diagnosis: Problems: (1) Schizoaffective disorder, bipolar type (2) Impulse control disorder, unspecified (3) Anxiety disorder, unspecified (4) Bipolar disorder, current episode mixed, severe, with psychotic features VICTORINA BAR MD Nov 03, 2020 08:46
[2020-11-03] MEDS: DICLOFENAC SODIUM 1% TOPICAL GEL 100GM TUBE. TP SCH ×2 (09:00→20:14)
[2020-11-03] MEDS: MAGNESIUM OXIDE 400 MG TABLET PO SCH (12:00)
--- NOTE | 2020-11-03 12:29 | NUR ---
Nurse Note Patient having right need aches request for Tylenol. Patient recived Tylenol 650 mg prn for pain.
[2020-11-03 16:09] VITALS: BP 142/89
[2020-11-03] MEDS: PANTOPRAZOLE 40 MG TABLET. PO SCH (20:13)
[2020-11-03] MEDS: risperiDONE 1 MG TABLET. PO SCH (20:14)
--- NOTE | 2020-11-03 21:57 | PDOC ---
Exam Note: Dandy Note: Please also refer to the separate dictated note~for this date of service dictated separately.~Patient seen individually. Discussed the patient with Nursing staff reviewed the chart.~Reviewed interim history and current functioning. Reviewed vital signs,~Labs/ Radiology~and current medications noted below. Continue current treatment with the changes noted in the dictated addendum note Assessment: Vital Signs/I&O: Vital Signs Date Time Temp Pulse Resp B/P (MAP) Pulse Ox O2 Delivery O2 Flow Rate FiO2 11/03/20 16:09 98.1 82 16 142/89 (106) 94 11/03/20 05:47 Room Air I & O 11/02/20 11/02/20 11/03/20 15:00 23:00 07:00 Intake Total 990 ml 240 ml 240 ml Balance 990 ml 240 ml 240 ml Current Medications: Meds: Current Medications Medications (Trade) Dose Ordered Sig/Lizette Route PRN Reason Start Time Stop Time Status Last Admin Dose Admin Ceftriaxone Sodium 1 gm/ Sodium Chloride 50 ml @ 100 mls/hr 1X ONCE IV 10/16/20 17:00 10/16/20 17:29 DC 10/16/20 17:00 Ceftriaxone Sodium (Rocephin) 1 gm STK-MED ONCE .ROUTE 10/16/20 17:05 10/16/20 17:05 DC Acetaminophen (Tylenol) 650 mg PRN Q4HRS PRN PO MILD PAIN / TEMP > 100.3'F 10/16/20 19:00 11/03/20 20:14 Buspirone HCl (Buspar) 10 mg TID PO 10/16/20 21:00 10/26/20 17:23 DC 10/26/20 14:44 Calcium Carbonate/ Glycine (Tums) 500 mg PRN Q8HRS PRN PO DYSPEPSIA, 1ST CHOICE 10/16/20 19:00 Diclofenac Sodium (Voltaren) 1 stan BID TP 10/16/20 21:00 11/03/20 20:14 Divalproex Sodium (Depakote) 250 mg TID PO 10/16/20 21:00 11/03/20 20:14 Lactase (Lactaid) 3,000 unit TIDBFRMEAL PO 10/17/20 07:30 11/03/20 17:30 Magnesium Oxide (Magnesium Oxide) 400 mg NOON PO 10/17/20 12:00 11/03/20 12:00 Metoclopramide HCl (Reglan) 10 mg QIDACHS PO 10/16/20 21:00 10/24/20 19:48 DC 10/24/20 16:12 Pantoprazole Sodium (Protonix) 40 mg QHS PO 10/16/20 21:00 11/03/20 20:13 Pantoprazole Sodium (Protonix) 40 mg DAILY PO 10/17/20 09:00 UNV Risperidone (RisperDAL) 1 mg QHS PO 10/16/20 21:00 10/18/20 11:47 DC 10/17/20 20:36 Risperidone (RisperDAL) 1.5 mg DAILY PO 10/17/20 09:00 10/23/20 17:54 DC 10/23/20 09:13 Sertraline HCl (Zoloft) 200 mg DAILY PO 10/17/20 09:00 10/24/20 16:49 DC 10/24/20 08:13 Cephalexin HCl (Keflex) 500 mg BID PO 10/16/20 21:00 10/19/20 16:10 DC 10/19/20 08:07 Loperamide HCl (Imodium) 2 mg PRN Q8HRS PRN PO DIARRHEA 10/16/20 19:00 Acetaminophen (Tylenol) 650 mg PRN Q6HRS PRN PO MILD PAIN / TEMP > 100.3'F 10/16/20 19:45 UNV Multi-Ingredient Ointment (Analgesic [place]) 1 stan PRN QID PRN TP MUSCLE PAIN 10/16/20 19:45 Al Hydroxide/Mg Hydroxide (Mylanta Plus Xs) 15 ml PRN AFTMEALHC PRN PO DYSPEPSIA, 2ND CHOICE 10/16/20 19:45 11/01/20 21:01 Magnesium Hydroxide (Milk Of Magnesia) 2,400 mg PRN QHS PRN PO CONSTIPATION 10/16/20 19:45 10/21/20 20:48 Lactobacillus Rhamnosus (Culturelle) 1 cap BID PO 10/17/20 21:00 11/03/20 20:13 Risperidone (RisperDAL) 1.5 mg QHS PO 10/18/20 21:00 10/23/20 21:00 DC 10/23/20 20:10 Vitamin D (Vitamin D3) 50,000 unit WEEKLY PO 10/18/20 15:45 11/01/20 08:18 Doxycycline Hyclate (Vibra-Tab) 100 mg BID PO 10/19/20 21:00 10/29/20 22:00 DC 10/29/20 20:59 Trimethoprim/ Sulfamethoxazole (Bactrim Ds) 1 tab BID PO 10/19/20 21:00 10/29/20 22:00 DC 10/29/20 21:00 Risperidone (RisperDAL) 3 mg QHS PO 10/24/20 21:00 11/03/20 20:14 Bupropion HCl (Wellbutrin Xl) 150 mg DAILY PO 10/25/20 09:00 10/26/20 21:00 DC 10/26/20 08:09 Bupropion HCl (Wellbutrin Xl) 300 mg DAILY PO 10/27/20 09:00 10/31/20 16:17 DC 10/31/20 07:58 Trazodone HCl (Desyrel) 50 mg PRN QHS PRN PO insomnia 10/27/20 21:15 11/03/20 20:14 Bupropion HCl (Wellbutrin Xl) 450 mg DAILY PO 11/01/20 09:00 11/03/20 07:53 I have reviewed the current psychotropics carefully including drug interactions. Risk benefit ratio favors no change other than as noted in my dictated progress note. Diagnosis: Problems: (1) Schizoaffective disorder, bipolar type (2) Impulse control disorder, unspecified (3) Anxiety disorder, unspecified (4) Bipolar disorder, current episode mixed, severe, with psychotic features VICTORINA BAR MD Nov 03, 2020 21:57
--- NOTE | 2020-11-03 22:35 | NUR ---
Patient is in the day room on assumption of care, watching a baseball game with his peers. Pleasant, interactive and appropriate with staff and peers. Patient complained of knee pain and requested PRN Tylenol and a Trazodone with his HS meds. Compliant with assessments and medications whole. No agitation. He appears to be sleeping comfortably at present time. Will continue to monitor.
[2020-11-04] MEDS: traZODone 50 MG TABLET. PO PRN ×2 (01:36→20:34)
[2020-11-04] MEDS ORDERED: CHOL500021 PO (03:54)
[2020-11-04] MEDS ORDERED: LACT1CAP19 PO (03:55)
[2020-11-04] MEDS ORDERED: MAG355OR12 PO (03:56)
[2020-11-04] MEDS ORDERED: MAGN24003 PO (04:05)
[2020-11-04] MEDS ORDERED: METH57CR17 TP (04:06)
[2020-11-04] MEDS ORDERED: BUPR150T21 PO (04:07)
[2020-11-04] MEDS ORDERED: TRAZ-120 PO (04:09)
[2020-11-04 05:29] VITALS: BP 111/68
[2020-11-04] MEDS: LACTOBACILLUS RHAMNOSUS GG 1 CAPSULE. PO SCH ×2 (08:36→20:34)
[2020-11-04] MEDS: DIVALPROEX SODIUM 250 MG TABLET.DR. PO SCH ×3 (08:36→20:34)
[2020-11-04] MEDS: LACTASE 3,000 UNIT TABLET PO SCH ×3 (08:36→18:07)
[2020-11-04] MEDS: buPROPion XL 150 MG TAB.ER.24H PO SCH (08:36)
[2020-11-04] MEDS: DICLOFENAC SODIUM 1% TOPICAL GEL 100GM TUBE. TP SCH ×2 (08:37→20:35)
[2020-11-04] MEDS: ACETAMINOPHEN 325 MG TABLET PO PRN ×2 (08:44→18:06)
--- NOTE | 2020-11-04 08:57 | PDOC ---
Exam Note: Dandy Note: This note is a late entry for 11/02/2020 covers elements not covered in my initial note. Subjective: The patient was seen individually in the evening of 11/02/2020 with Catrachito MADRIGAL, discussed and reviewed the chart. He slept 7 hours previous night. The patient has had one episode of having bowel movement on the floor of his room rather than the bathroom. He was asked to assist in cleaning it. I met with him at some length individually in his room evening of 11/02 and encouraged him to come out of the dayroom which he did later as I was rounding. He had many questions about discharge plans which we addressed. Review of Systems: Ambulation impaired in wheelchair. No CV, , pulmonary, eye, ENT system symptoms on review. Mental Status Exam: The patient is reasonably oriented. Speech is coherent. Abstraction fair. Computation impaired. Language function intact. Attention span short. Mood and affect is withdrawn. No suicidal or homicidal ideation. Laboratory Data: Reviewed. Impression: Schizoaffective disorder bipolar type mixed with psychotic featur es. Anxiety disorder unspecified. Impulse control disorder unspecified. Plan: Continue to adjust psychotropics as clinically indicated. Assessment: Vital Signs/I&O: Vital Signs Date Time Temp Pulse Resp B/P (MAP) Pulse Ox O2 Delivery O2 Flow Rate FiO2 11/04/20 05:29 97.7 61 16 111/68 (82) 94 Room Air I & O 11/03/20 11/03/20 11/04/20 15:00 23:00 07:00 Intake Total 240 ml 240 ml Balance 240 ml 240 ml Current Medications: Meds: Current Medications Medications (Trade) Dose Ordered Sig/Lizette Route PRN Reason Start Time Stop Time Status Last Admin Dose Admin Ceftriaxone Sodium 1 gm/ Sodium Chloride 50 ml @ 100 mls/hr 1X ONCE IV 10/16/20 17:00 10/16/20 17:29 DC 10/16/20 17:00 Ceftriaxone Sodium (Rocephin) 1 gm STK-MED ONCE .ROUTE 10/16/20 17:05 10/16/20 17:05 DC Acetaminophen (Tylenol) 650 mg PRN Q4HRS PRN PO MILD PAIN / TEMP > 100.3'F 10/16/20 19:00 11/04/20 08:44 Buspirone HCl (Buspar) 10 mg TID PO 10/16/20 21:00 10/26/20 17:23 DC 10/26/20 14:44 Calcium Carbonate/ Glycine (Tums) 500 mg PRN Q8HRS PRN PO DYSPEPSIA, 1ST CHOICE 10/16/20 19:00 Diclofenac Sodium (Voltaren) 1 stan BID TP 10/16/20 21:00 11/04/20 08:37 Divalproex Sodium (Depakote) 250 mg TID PO 10/16/20 21:00 11/04/20 08:36 Lactase (Lactaid) 3,000 unit TIDBFRMEAL PO 10/17/20 07:30 11/04/20 08:36 Magnesium Oxide (Magnesium Oxide) 400 mg NOON PO 10/17/20 12:00 11/03/20 12:00 Metoclopramide HCl (Reglan) 10 mg QIDACHS PO 10/16/20 21:00 10/24/20 19:48 DC 10/24/20 16:12 Pantoprazole Sodium (Protonix) 40 mg QHS PO 10/16/20 21:00 11/03/20 20:13 Pantoprazole Sodium (Protonix) 40 mg DAILY PO 10/17/20 09:00 UNV Risperidone (RisperDAL) 1 mg QHS PO 10/16/20 21:00 10/18/20 11:47 DC 10/17/20 20:36 Risperidone (RisperDAL) 1.5 mg DAILY PO 10/17/20 09:00 10/23/20 17:54 DC 10/23/20 09:13 Sertraline HCl (Zoloft) 200 mg DAILY PO 10/17/20 09:00 10/24/20 16:49 DC 10/24/20 08:13 Cephalexin HCl (Keflex) 500 mg BID PO 10/16/20 21:00 10/19/20 16:10 DC 10/19/20 08:07 Loperamide HCl (Imodium) 2 mg PRN Q8HRS PRN PO DIARRHEA 10/16/20 19:00 Acetaminophen (Tylenol) 650 mg PRN Q6HRS PRN PO MILD PAIN / TEMP > 100.3'F 10/16/20 19:45 UNV Multi-Ingredient Ointment (Analgesic [place]) 1 stan PRN QID PRN TP MUSCLE PAIN 10/16/20 19:45 Al Hydroxide/Mg Hydroxide (Mylanta Plus Xs) 15 ml PRN AFTMEALHC PRN PO DYSPEPSIA, 2ND CHOICE 10/16/20 19:45 11/01/20 21:01 Magnesium Hydroxide (Milk Of Magnesia) 2,400 mg PRN QHS PRN PO CONSTIPATION 10/16/20 19:45 10/21/20 20:48 Lactobacillus Rhamnosus (Culturelle) 1 cap BID PO 10/17/20 21:00 11/04/20 08:36 Risperidone (RisperDAL) 1.5 mg QHS PO 10/18/20 21:00 10/23/20 21:00 DC 10/23/20 20:10 Vitamin D (Vitamin D3) 50,000 unit WEEKLY PO 10/18/20 15:45 11/01/20 08:18 Doxycycline Hyclate (Vibra-Tab) 100 mg BID PO 10/19/20 21:00 10/29/20 22:00 DC 10/29/20 20:59 Trimethoprim/ Sulfamethoxazole (Bactrim Ds) 1 tab BID PO 10/19/20 21:00 10/29/20 22:00 DC 10/29/20 21:00 Risperidone (RisperDAL) 3 mg QHS PO 10/24/20 21:00 11/03/20 20:14 Bupropion HCl (Wellbutrin Xl) 150 mg DAILY PO 10/25/20 09:00 10/26/20 21:00 DC 10/26/20 08:09 Bupropion HCl (Wellbutrin Xl) 300 mg DAILY PO 10/27/20 09:00 10/31/20 16:17 DC 10/31/20 07:58 Trazodone HCl (Desyrel) 50 mg PRN QHS PRN PO insomnia 10/27/20 21:15 11/04/20 01:36 Bupropion HCl (Wellbutrin Xl) 450 mg DAILY PO 11/01/20 09:00 11/04/20 08:36 I have reviewed the current psychotropics carefully including drug interactions. Risk benefit ratio favors no change other than as noted in my dictated progress note. Diagnosis: Problems: (1) Schizoaffective disorder, bipolar type (2) Impulse control disorder, unspecified (3) Anxiety disorder, unspecified (4) Bipolar disorder, current episode mixed, severe, with psychotic features VICTORINA BAR MD Nov 04, 2020 08:57
--- NOTE | 2020-11-04 10:11 | RAD ---
EXAM: XR KNEE 3 [id number] 11/04/2020 8:00 AM CLINICAL INDICATION: Severe right knee pain COMPARISON: Right knee radiograph 10/17/2020 TECHNIQUE: 3 views of the right knee FINDINGS: The bones are diffusely demineralized. There is no acute fracture or malalignment. There i s moderate medial and lateral compartment narrowing with small osteophytes, unchanged. Unchanged smal l joint effusion. IMPRESSION: Unchanged moderate tricompartmental degenerative joint disease. Small joint effusion. Electronically signed by: Wendi Goldberg MD (11/04/2020 10:08 AM) [id number]
[2020-11-04] MEDS: MAGNESIUM OXIDE 400 MG TABLET PO SCH (12:00)
[2020-11-04] MEDS: MAG HYDROX/AL HYDROX/SIMETH 30 ML ORAL.SUSP PO PRN (12:17)
--- NOTE | 2020-11-04 15:19 | NUR ---
Nursing Note Patient has been pleasant throughout shift, mediation compliant, and out to the day room in the afternoon. Patient has had no acute events.
[2020-11-04 15:58] VITALS: BP 106/60
[2020-11-04] MEDS: PANTOPRAZOLE 40 MG TABLET. PO SCH (20:34)
[2020-11-04] MEDS: risperiDONE 1 MG TABLET. PO SCH (20:34)
--- NOTE | 2020-11-04 21:56 | PDOC ---
Exam Note: Dandy Note: Please also refer to the separate dictated note~for this date of service dictated separately.~Patient seen individually. Discussed the patient with Nursing staff reviewed the chart.~Reviewed interim history and current functioning. Reviewed vital signs,~Labs/ Radiology~and current medications noted below. Continue current treatment with the changes noted in the dictated addendum note Assessment: Vital Signs/I&O: Vital Signs Date Time Temp Pulse Resp B/P (MAP) Pulse Ox O2 Delivery O2 Flow Rate FiO2 11/04/20 15:58 97.7 72 20 106/60 (75) 95 Room Air I & O 11/03/20 11/03/20 11/04/20 15:00 23:00 07:00 Intake Total 240 ml 240 ml Balance 240 ml 240 ml Current Medications: Meds: Current Medications Medications (Trade) Dose Ordered Sig/Lizette Route PRN Reason Start Time Stop Time Status Last Admin Dose Admin Ceftriaxone Sodium 1 gm/ Sodium Chloride 50 ml @ 100 mls/hr 1X ONCE IV 10/16/20 17:00 10/16/20 17:29 DC 10/16/20 17:00 Ceftriaxone Sodium (Rocephin) 1 gm STK-MED ONCE .ROUTE 10/16/20 17:05 10/16/20 17:05 DC Acetaminophen (Tylenol) 650 mg PRN Q4HRS PRN PO MILD PAIN / TEMP > 100.3'F 10/16/20 19:00 11/04/20 18:06 Buspirone HCl (Buspar) 10 mg TID PO 10/16/20 21:00 10/26/20 17:23 DC 10/26/20 14:44 Calcium Carbonate/ Glycine (Tums) 500 mg PRN Q8HRS PRN PO DYSPEPSIA, 1ST CHOICE 10/16/20 19:00 Diclofenac Sodium (Voltaren) 1 stan BID TP 10/16/20 21:00 11/04/20 20:35 Divalproex Sodium (Depakote) 250 mg TID PO 10/16/20 21:00 11/04/20 20:34 Lactase (Lactaid) 3,000 unit TIDBFRMEAL PO 10/17/20 07:30 11/04/20 18:07 Magnesium Oxide (Magnesium Oxide) 400 mg NOON PO 10/17/20 12:00 11/04/20 12:00 Metoclopramide HCl (Reglan) 10 mg QIDACHS PO 10/16/20 21:00 10/24/20 19:48 DC 10/24/20 16:12 Pantoprazole Sodium (Protonix) 40 mg QHS PO 10/16/20 21:00 11/04/20 20:34 Pantoprazole Sodium (Protonix) 40 mg DAILY PO 10/17/20 09:00 UNV Risperidone (RisperDAL) 1 mg QHS PO 10/16/20 21:00 10/18/20 11:47 DC 10/17/20 20:36 Risperidone (RisperDAL) 1.5 mg DAILY PO 10/17/20 09:00 10/23/20 17:54 DC 10/23/20 09:13 Sertraline HCl (Zoloft) 200 mg DAILY PO 10/17/20 09:00 10/24/20 16:49 DC 10/24/20 08:13 Cephalexin HCl (Keflex) 500 mg BID PO 10/16/20 21:00 10/19/20 16:10 DC 10/19/20 08:07 Loperamide HCl (Imodium) 2 mg PRN Q8HRS PRN PO DIARRHEA 10/16/20 19:00 Acetaminophen (Tylenol) 650 mg PRN Q6HRS PRN PO MILD PAIN / TEMP > 100.3'F 10/16/20 19:45 UNV Multi-Ingredient Ointment (Analgesic [place]) 1 stan PRN QID PRN TP MUSCLE PAIN 10/16/20 19:45 Al Hydroxide/Mg Hydroxide (Mylanta Plus Xs) 15 ml PRN AFTMEALHC PRN PO DYSPEPSIA, 2ND CHOICE 10/16/20 19:45 11/04/20 12:17 Magnesium Hydroxide (Milk Of Magnesia) 2,400 mg PRN QHS PRN PO CONSTIPATION 10/16/20 19:45 10/21/20 20:48 Lactobacillus Rhamnosus (Culturelle) 1 cap BID PO 10/17/20 21:00 11/04/20 20:34 Risperidone (RisperDAL) 1.5 mg QHS PO 10/18/20 21:00 10/23/20 21:00 DC 10/23/20 20:10 Vitamin D (Vitamin D3) 50,000 unit WEEKLY PO 10/18/20 15:45 11/01/20 08:18 Doxycycline Hyclate (Vibra-Tab) 100 mg BID PO 10/19/20 21:00 10/29/20 22:00 DC 10/29/20 20:59 Trimethoprim/ Sulfamethoxazole (Bactrim Ds) 1 tab BID PO 10/19/20 21:00 10/29/20 22:00 DC 10/29/20 21:00 Risperidone (RisperDAL) 3 mg QHS PO 10/24/20 21:00 11/04/20 20:34 Bupropion HCl (Wellbutrin Xl) 150 mg DAILY PO 10/25/20 09:00 10/26/20 21:00 DC 10/26/20 08:09 Bupropion HCl (Wellbutrin Xl) 300 mg DAILY PO 10/27/20 09:00 10/31/20 16:17 DC 10/31/20 07:58 Trazodone HCl (Desyrel) 50 mg PRN QHS PRN PO insomnia 10/27/20 21:15 11/04/20 20:34 Bupropion HCl (Wellbutrin Xl) 450 mg DAILY PO 11/01/20 09:00 11/04/20 08:36 I have reviewed the current psychotropics carefully including drug interactions. Risk benefit ratio favors no change other than as noted in my dictated progress note. Diagnosis: Problems: (1) Schizoaffective disorder, bipolar type (2) Impulse control disorder, unspecified (3) Anxiety disorder, unspecified (4) Bipolar disorder, current episode mixed, severe, with psychotic features VICTORINA BAR MD Nov 04, 2020 21:56
--- NOTE | 2020-11-04 22:34 | NUR ---
Patient is in his room on assumption of care, awake in bed. Pleasant, interactive and appropriate with staff and peers. Patient requested a Trazodone with his HS meds. Compliant with assessments and medications whole. No agitation. He appears to be sleeping comfortably at present time. Will continue to monitor.
[2020-11-05 05:36] VITALS: BP 107/58
[2020-11-05] MEDS: ACETAMINOPHEN 325 MG TABLET PO PRN ×3 (05:40→17:20)
[2020-11-05] MEDS: buPROPion XL 150 MG TAB.ER.24H PO SCH (08:15)
[2020-11-05] MEDS: DIVALPROEX SODIUM 250 MG TABLET.DR. PO SCH ×3 (08:15→21:15)
[2020-11-05] MEDS: LACTASE 3,000 UNIT TABLET PO SCH ×3 (08:15→17:17)
[2020-11-05] MEDS: LACTOBACILLUS RHAMNOSUS GG 1 CAPSULE. PO SCH ×2 (08:15→21:15)
--- NOTE | 2020-11-05 08:59 | PDOC ---
Exam Note: Dandy Note: This note is a late entry for 11/03/2020 covers elements not covered in my initial note. Subjective: The patient was seen individually in the evening of 11/03/2020 with Samina MADRIGAL, discussed and reviewed the chart. He slept 4 hours previous night. The patient has been more social, interactive coming out of the dayroom. I had lengthy discussion about him how important it was for him to come out and interact with others and then he stated he would make concerted effort to do this. Review of Systems: Ambulation impaired in wheelchair/walker. No CV, , pulmo nary, eye, ENT system symptoms on review. Mental Status Exam: The patient is reasonably oriented. He is pleasant, verbal interactive. He has not been defecating on the floor. Speech is coherent. Abstraction fair. Computation impaired. Language function intact. Attention span short. Mood and affect is withdrawn. No suicidal or homicidal ideation. Laboratory Data: Reviewed. Impression: Schizoaffective disorder bipolar type mixed with psychotic features. Anxiety disorder unspecified. Impulse control disorder unspecified. Plan: Continue to adjust psychotropics as clinically indicated. Assessment: Vital Signs/I&O: Vital Signs Date Time Temp Pulse Resp B/P (MAP) Pulse Ox O2 Delivery O2 Flow Rate FiO2 11/05/20 05:36 97.3 72 18 107/58 (74) 94 11/04/20 15:58 Room Air I & O 11/04/20 11/04/20 11/05/20 15:00 23:00 07:00 Intake Total 600 ml 240 ml 120 ml Balance 600 ml 240 ml 120 ml Current Medications: Meds: Current Medications Medications (Trade) Dose Ordered Sig/Lizette Route PRN Reason Start Time Stop Time Status Last Admin Dose Admin Ceftriaxone Sodium 1 gm/ Sodium Chloride 50 ml @ 100 mls/hr 1X ONCE IV 10/16/20 17:00 10/16/20 17:29 DC 10/16/20 17:00 Ceftriaxone Sodium (Rocephin) 1 gm STK-MED ONCE .ROUTE 10/16/20 17:05 10/16/20 17:05 DC Acetaminophen (Tylenol) 650 mg PRN Q4HRS PRN PO MILD PAIN / TEMP > 100.3'F 10/16/20 19:00 11/05/20 05:40 Buspirone HCl (Buspar) 10 mg TID PO 10/16/20 21:00 10/26/20 17:23 DC 10/26/20 14:44 Calcium Carbonate/ Glycine (Tums) 500 mg PRN Q8HRS PRN PO DYSPEPSIA, 1ST CHOICE 10/16/20 19:00 Diclofenac Sodium (Voltaren) 1 stan BID TP 10/16/20 21:00 11/04/20 20:35 Divalproex Sodium (Depakote) 250 mg TID PO 10/16/20 21:00 11/05/20 08:15 Lactase (Lactaid) 3,000 unit TIDBFRMEAL PO 10/17/20 07:30 11/05/20 08:15 Magnesium Oxide (Magnesium Oxide) 400 mg NOON PO 10/17/20 12:00 11/04/20 12:00 Metoclopramide HCl (Reglan) 10 mg QIDACHS PO 10/16/20 21:00 10/24/20 19:48 DC 10/24/20 16:12 Pantoprazole Sodium (Protonix) 40 mg QHS PO 10/16/20 21:00 11/04/20 20:34 Pantoprazole Sodium (Protonix) 40 mg DAILY PO 10/17/20 09:00 UNV Risperidone (RisperDAL) 1 mg QHS PO 10/16/20 21:00 10/18/20 11:47 DC 10/17/20 20:36 Risperidone (RisperDAL) 1.5 mg DAILY PO 10/17/20 09:00 10/23/20 17:54 DC 10/23/20 09:13 Sertraline HCl (Zoloft) 200 mg DAILY PO 10/17/20 09:00 10/24/20 16:49 DC 10/24/20 08:13 Cephalexin HCl (Keflex) 500 mg BID PO 10/16/20 21:00 10/19/20 16:10 DC 10/19/20 08:07 Loperamide HCl (Imodium) 2 mg PRN Q8HRS PRN PO DIARRHEA 10/16/20 19:00 Acetaminophen (Tylenol) 650 mg PRN Q6HRS PRN PO MILD PAIN / TEMP > 100.3'F 10/16/20 19:45 UNV Multi-Ingredient Ointment (Analgesic [place]) 1 stan PRN QID PRN TP MUSCLE PAIN 10/16/20 19:45 Al Hydroxide/Mg Hydroxide (Mylanta Plus Xs) 15 ml PRN AFTMEALHC PRN PO DYSPEPSIA, 2ND CHOICE 10/16/20 19:45 11/04/20 12:17 Magnesium Hydroxide (Milk Of Magnesia) 2,400 mg PRN QHS PRN PO CONSTIPATION 10/16/20 19:45 10/21/20 20:48 Lactobacillus Rhamnosus (Culturelle) 1 cap BID PO 10/17/20 21:00 11/05/20 08:15 Risperidone (RisperDAL) 1.5 mg QHS PO 10/18/20 21:00 10/23/20 21:00 DC 10/23/20 20:10 Vitamin D (Vitamin D3) 50,000 unit WEEKLY PO 10/18/20 15:45 11/01/20 08:18 Doxycycline Hyclate (Vibra-Tab) 100 mg BID PO 10/19/20 21:00 10/29/20 22:00 DC 10/29/20 20:59 Trimethoprim/ Sulfamethoxazole (Bactrim Ds) 1 tab BID PO 10/19/20 21:00 10/29/20 22:00 DC 10/29/20 21:00 Risperidone (RisperDAL) 3 mg QHS PO 10/24/20 21:00 11/04/20 20:34 Bupropion HCl (Wellbutrin Xl) 150 mg DAILY PO 10/25/20 09:00 10/26/20 21:00 DC 10/26/20 08:09 Bupropion HCl (Wellbutrin Xl) 300 mg DAILY PO 10/27/20 09:00 10/31/20 16:17 DC 10/31/20 07:58 Trazodone HCl (Desyrel) 50 mg PRN QHS PRN PO insomnia 10/27/20 21:15 11/04/20 20:34 Bupropion HCl (Wellbutrin Xl) 450 mg DAILY PO 11/01/20 09:00 11/05/20 08:15 I have reviewed the current psychotropics carefully including drug interactions. Risk benefit ratio favors no change other than as noted in my dictated progress note. Diagnosis: Problems: (1) Schizoaffective disorder, bipolar type (2) Impulse control disorder, unspecified (3) Anxiety disorder, unspecified (4) Bipolar disorder, current episode mixed, severe, with psychotic features VICTORINA BAR MD Nov 05, 2020 08:59
[2020-11-05] MEDS: DICLOFENAC SODIUM 1% TOPICAL GEL 100GM TUBE. TP SCH ×2 (09:00→21:23)
--- NOTE | 2020-11-05 09:30 | PDOC ---
Exam Note: Dandy Note: This note is a late entry for 11/04/2020 covers elements not covered in my initial note. Subjective: The patient was seen individually in the evening of 11/04/2020 with Bonilla MADRIGAL, discussed and reviewed the chart. He slept 5-3/4 hours previous night. The patient spent much time in the dayroom today. CT of the knee was done due to his significant pain which shows degenerative joint disease. Review of Systems: Ambulation impaired in wheelchair. No CV, , pulmonary, eye, ENT system symptoms on review. Mental Status Exam: The patient is reasonably oriented. Speech is coherent. Abstraction fair. Computation impaired. Language function intact. Attention span short. Mood and affect is withdrawn. No suicidal or homicidal ideation. Laboratory Data: Reviewed. Impression: Schizoaffective disorder bipolar type mixed with psychotic features. Anxiety disorder unspecified. Impulse control disorder unspecified. Plan: Continue to adjust psychotropics as clinically indicated. Tentative transfer back to the assisted next Thursday. Assessment: Vital Signs/I&O: Vital Signs Date Time Temp Pulse Resp B/P (MAP) Pulse Ox O2 Delivery O2 Flow Rate FiO2 11/05/20 05:36 97.3 72 18 107/58 (74) 94 11/04/20 15:58 Room Air I & O 11/04/20 11/04/20 11/05/20 15:00 23:00 07:00 Intake Total 600 ml 240 ml 120 ml Balance 600 ml 240 ml 120 ml Current Medications: Meds: Current Medications Medications (Trade) Dose Ordered Sig/Lizette Route PRN Reason Start Time Stop Time Status Last Admin Dose Admin Ceftriaxone Sodium 1 gm/ Sodium Chloride 50 ml @ 100 mls/hr 1X ONCE IV 10/16/20 17:00 10/16/20 17:29 DC 10/16/20 17:00 Ceftriaxone Sodium (Rocephin) 1 gm STK-MED ONCE .ROUTE 10/16/20 17:05 10/16/20 17:05 DC Acetaminophen (Tylenol) 650 mg PRN Q4HRS PRN PO MILD PAIN / TEMP > 100.3'F 10/16/20 19:00 11/05/20 05:40 Buspirone HCl (Buspar) 10 mg TID PO 10/16/20 21:00 10/26/20 17:23 DC 10/26/20 14:44 Calcium Carbonate/ Glycine (Tums) 500 mg PRN Q8HRS PRN PO DYSPEPSIA, 1ST CHOICE 10/16/20 19:00 Diclofenac Sodium (Voltaren) 1 stan BID TP 10/16/20 21:00 11/04/20 20:35 Divalproex Sodium (Depakote) 250 mg TID PO 10/16/20 21:00 11/05/20 08:15 Lactase (Lactaid) 3,000 unit TIDBFRMEAL PO 10/17/20 07:30 11/05/20 08:15 Magnesium Oxide (Magnesium Oxide) 400 mg NOON PO 10/17/20 12:00 11/04/20 12:00 Metoclopramide HCl (Reglan) 10 mg QIDACHS PO 10/16/20 21:00 10/24/20 19:48 DC 10/24/20 16:12 Pantoprazole Sodium (Protonix) 40 mg QHS PO 10/16/20 21:00 11/04/20 20:34 Pantoprazole Sodium (Protonix) 40 mg DAILY PO 10/17/20 09:00 UNV Risperidone (RisperDAL) 1 mg QHS PO 10/16/20 21:00 10/18/20 11:47 DC 10/17/20 20:36 Risperidone (RisperDAL) 1.5 mg DAILY PO 10/17/20 09:00 10/23/20 17:54 DC 10/23/20 09:13 Sertraline HCl (Zoloft) 200 mg DAILY PO 10/17/20 09:00 10/24/20 16:49 DC 10/24/20 08:13 Cephalexin HCl (Keflex) 500 mg BID PO 10/16/20 21:00 10/19/20 16:10 DC 10/19/20 08:07 Loperamide HCl (Imodium) 2 mg PRN Q8HRS PRN PO DIARRHEA 10/16/20 19:00 Acetaminophen (Tylenol) 650 mg PRN Q6HRS PRN PO MILD PAIN / TEMP > 100.3'F 10/16/20 19:45 UNV Multi-Ingredient Ointment (Analgesic [place]) 1 stan PRN QID PRN TP MUSCLE PAIN 10/16/20 19:45 Al Hydroxide/Mg Hydroxide (Mylanta Plus Xs) 15 ml PRN AFTMEALHC PRN PO DYSPEPSIA, 2ND CHOICE 10/16/20 19:45 11/04/20 12:17 Magnesium Hydroxide (Milk Of Magnesia) 2,400 mg PRN QHS PRN PO CONSTIPATION 10/16/20 19:45 10/21/20 20:48 Lactobacillus Rhamnosus (Culturelle) 1 cap BID PO 10/17/20 21:00 11/05/20 08:15 Risperidone (RisperDAL) 1.5 mg QHS PO 10/18/20 21:00 10/23/20 21:00 DC 10/23/20 20:10 Vitamin D (Vitamin D3) 50,000 unit WEEKLY PO 10/18/20 15:45 11/01/20 08:18 Doxycycline Hyclate (Vibra-Tab) 100 mg BID PO 10/19/20 21:00 10/29/20 22:00 DC 10/29/20 20:59 Trimethoprim/ Sulfamethoxazole (Bactrim Ds) 1 tab BID PO 10/19/20 21:00 10/29/20 22:00 DC 10/29/20 21:00 Risperidone (RisperDAL) 3 mg QHS PO 10/24/20 21:00 11/04/20 20:34 Bupropion HCl (Wellbutrin Xl) 150 mg DAILY PO 10/25/20 09:00 10/26/20 21:00 DC 10/26/20 08:09 Bupropion HCl (Wellbutrin Xl) 300 mg DAILY PO 10/27/20 09:00 10/31/20 16:17 DC 10/31/20 07:58 Trazodone HCl (Desyrel) 50 mg PRN QHS PRN PO insomnia 10/27/20 21:15 11/04/20 20:34 Bupropion HCl (Wellbutrin Xl) 450 mg DAILY PO 11/01/20 09:00 11/05/20 08:15 I have reviewed the current psychotropics carefully including drug interactions. Risk benefit ratio favors no change other than as noted in my dictated progress note. Diagnosis: Problems: (1) Schizoaffective disorder, bipolar type (2) Impulse control disorder, unspecified (3) Anxiety disorder, unspecified (4) Bipolar disorder, current episode mixed, severe, with psychotic features VICTORINA BAR MD Nov 05, 2020 09:30
[2020-11-05] MEDS: MAGNESIUM OXIDE 400 MG TABLET PO SCH (12:00)
--- NOTE | 2020-11-05 13:52 | NUR ---
nsg note; thom has been calm, cooperative and med compliant today. he is withdrawn to his room beween meals.
[2020-11-05 16:09] VITALS: BP 108/50
[2020-11-05] MEDS: PANTOPRAZOLE 40 MG TABLET. PO SCH (21:15)
[2020-11-05] MEDS: risperiDONE 1 MG TABLET. PO SCH (21:16)
[2020-11-05] MEDS: traZODone 50 MG TABLET. PO PRN (21:23)
--- NOTE | 2020-11-05 22:02 | PDOC ---
Exam Note: Dandy Note: Please also refer to the separate dictated note~for this date of service dictated separately.~Patient seen individually. Discussed the patient with Nursing staff reviewed the chart.~Reviewed interim history and current functioning. Reviewed vital signs,~Labs/ Radiology~and current medications noted below. Continue current treatment with the changes noted in the dictated addendum note Assessment: Vital Signs/I&O: Vital Signs Date Time Temp Pulse Resp B/P (MAP) Pulse Ox O2 Delivery O2 Flow Rate FiO2 11/05/20 16:09 97.7 69 20 108/50 (69) 94 11/04/20 15:58 Room Air I & O 11/04/20 11/04/20 11/05/20 14:59 22:59 06:59 Intake Total 600 ml 240 ml 120 ml Balance 600 ml 240 ml 120 ml Current Medications: Meds: Current Medications Medications (Trade) Dose Ordered Sig/Lizette Route PRN Reason Start Time Stop Time Status Last Admin Dose Admin Ceftriaxone Sodium 1 gm/ Sodium Chloride 50 ml @ 100 mls/hr 1X ONCE IV 10/16/20 17:00 10/16/20 17:29 DC 10/16/20 17:00 Ceftriaxone Sodium (Rocephin) 1 gm STK-MED ONCE .ROUTE 10/16/20 17:05 10/16/20 17:05 DC Acetaminophen (Tylenol) 650 mg PRN Q4HRS PRN PO MILD PAIN / TEMP > 100.3'F 10/16/20 19:00 11/05/20 17:20 Buspirone HCl (Buspar) 10 mg TID PO 10/16/20 21:00 10/26/20 17:23 DC 10/26/20 14:44 Calcium Carbonate/ Glycine (Tums) 500 mg PRN Q8HRS PRN PO DYSPEPSIA, 1ST CHOICE 10/16/20 19:00 Diclofenac Sodium (Voltaren) 1 stan BID TP 10/16/20 21:00 11/05/20 21:23 Divalproex Sodium (Depakote) 250 mg TID PO 10/16/20 21:00 11/05/20 21:15 Lactase (Lactaid) 3,000 unit TIDBFRMEAL PO 10/17/20 07:30 11/05/20 17:17 Magnesium Oxide (Magnesium Oxide) 400 mg NOON PO 10/17/20 12:00 11/05/20 12:00 Metoclopramide HCl (Reglan) 10 mg QIDACHS PO 10/16/20 21:00 10/24/20 19:48 DC 10/24/20 16:12 Pantoprazole Sodium (Protonix) 40 mg QHS PO 10/16/20 21:00 11/05/20 21:15 Pantoprazole Sodium (Protonix) 40 mg DAILY PO 10/17/20 09:00 UNV Risperidone (RisperDAL) 1 mg QHS PO 10/16/20 21:00 10/18/20 11:47 DC 10/17/20 20:36 Risperidone (RisperDAL) 1.5 mg DAILY PO 10/17/20 09:00 10/23/20 17:54 DC 10/23/20 09:13 Sertraline HCl (Zoloft) 200 mg DAILY PO 10/17/20 09:00 10/24/20 16:49 DC 10/24/20 08:13 Cephalexin HCl (Keflex) 500 mg BID PO 10/16/20 21:00 10/19/20 16:10 DC 10/19/20 08:07 Loperamide HCl (Imodium) 2 mg PRN Q8HRS PRN PO DIARRHEA 10/16/20 19:00 Acetaminophen (Tylenol) 650 mg PRN Q6HRS PRN PO MILD PAIN / TEMP > 100.3'F 10/16/20 19:45 UNV Multi-Ingredient Ointment (Analgesic [place]) 1 stan PRN QID PRN TP MUSCLE PAIN 10/16/20 19:45 Al Hydroxide/Mg Hydroxide (Mylanta Plus Xs) 15 ml PRN AFTMEALHC PRN PO DYSPEPSIA, 2ND CHOICE 10/16/20 19:45 11/04/20 12:17 Magnesium Hydroxide (Milk Of Magnesia) 2,400 mg PRN QHS PRN PO CONSTIPATION 10/16/20 19:45 10/21/20 20:48 Lactobacillus Rhamnosus (Culturelle) 1 cap BID PO 10/17/20 21:00 11/05/20 21:15 Risperidone (RisperDAL) 1.5 mg QHS PO 10/18/20 21:00 10/23/20 21:00 DC 10/23/20 20:10 Vitamin D (Vitamin D3) 50,000 unit WEEKLY PO 10/18/20 15:45 11/01/20 08:18 Doxycycline Hyclate (Vibra-Tab) 100 mg BID PO 10/19/20 21:00 10/29/20 22:00 DC 10/29/20 20:59 Trimethoprim/ Sulfamethoxazole (Bactrim Ds) 1 tab BID PO 10/19/20 21:00 10/29/20 22:00 DC 10/29/20 21:00 Risperidone (RisperDAL) 3 mg QHS PO 10/24/20 21:00 11/05/20 21:16 Bupropion HCl (Wellbutrin Xl) 150 mg DAILY PO 10/25/20 09:00 10/26/20 21:00 DC 10/26/20 08:09 Bupropion HCl (Wellbutrin Xl) 300 mg DAILY PO 10/27/20 09:00 10/31/20 16:17 DC 10/31/20 07:58 Trazodone HCl (Desyrel) 50 mg PRN QHS PRN PO insomnia 10/27/20 21:15 11/05/20 21:23 Bupropion HCl (Wellbutrin Xl) 450 mg DAILY PO 11/01/20 09:00 11/05/20 08:15 I have reviewed the current psychotropics carefully including drug interactions. Risk benefit ratio favors no change other than as noted in my dictated progress note. Diagnosis: Problems: (1) Schizoaffective disorder, bipolar type (2) Impulse control disorder, unspecified (3) Anxiety disorder, unspecified (4) Bipolar disorder, current episode mixed, severe, with psychotic features VICTORINA BAR MD Nov 05, 2020 22:02
--- NOTE | 2020-11-05 23:26 | NUR ---
Patient was in the day [place]eball[place] during the start of shift, watching TV and interacting pleasantly with staff and peers. He denied any pain, nausea or vomiting. Patient consumed all the snacks he was offered, was compliant with his bedtime medications and requested a prn sleeping pill (Trazodone). He retired to his room and lay in bed where he remains resting with eyes closed, breathing normally with no signs of distress. Patient has not expressed any behaviors or aggression towards peers and/or staff so far, remaining calm through his time awake. Will continue to monitor.
[2020-11-06] MEDS: ACETAMINOPHEN 325 MG TABLET PO PRN (05:46)
[2020-11-06 06:00] VITALS: BP 132/76
[2020-11-06] MEDS: DIVALPROEX SODIUM 250 MG TABLET.DR. PO SCH (08:11)
[2020-11-06] MEDS: buPROPion XL 150 MG TAB.ER.24H PO SCH (08:12)
[2020-11-06] MEDS: LACTASE 3,000 UNIT TABLET PO SCH (08:12)
[2020-11-06] MEDS: LACTOBACILLUS RHAMNOSUS GG 1 CAPSULE. PO SCH (08:12)
[2020-11-06] MEDS: DICLOFENAC SODIUM 1% TOPICAL GEL 100GM TUBE. TP SCH (09:00)
--- NOTE | 2020-11-06 09:03 | NUR ---
Pt med compliant and appropriate today. He is aware that he is pending d/c today and states he is looking forward to it, however he also states he will miss the food here. No behaviors noted at this time. Plan of care continues, preparing for d/c.
--- NOTE | 2020-11-06 12:36 | NUR ---
Transition Record was faxed to follow-up provider with the following elements: Reason for admission, procedures, tests, principal diagnosis, pending studies, patient instructions, 10/11 contact information for unit, phone number to obtain pending test results, plan for follow-up care, physician follow-up, advanced directive information, and medication list with dose, duration and instructions. This information was included in the following documents: History and physical, lab results, study results, progress notes, social work planning form, DC instruction form, patient visit summary, and medication reconciliation form. Date & time record faxed: 11/06/20106 Record faxed to: [facility] fax [phone] Record discussed with/ report given to: Cherrie Crabtree RN at [facility] [phone]
--- NOTE | 2020-11-06 22:07 | PDOC ---
Exam Note: Dandy Note: Please also refer to the separate dictated note~for this date of service dictated separately.~Patient seen individually. Discussed the patient with Nursing staff reviewed the chart.~Reviewed interim history and current functioning. Reviewed vital signs,~Labs/ Radiology~and current medications noted below. Continue current treatment with the changes noted in the dictated addendum note Assessment: Vital Signs/I&O: Vital Signs Date Time Temp Pulse Resp B/P (MAP) Pulse Ox O2 Delivery O2 Flow Rate FiO2 11/06/20 06:00 97.7 72 16 132/76 (94) Room Air 11/05/20 16:09 94 I & O 11/05/20 11/05/20 11/06/20 14:59 22:59 06:59 Intake Total 720 ml 720 ml Balance 720 ml 720 ml Current Medications: Meds: Current Medications Medications (Trade) Dose Ordered Sig/Lizette Route PRN Reason Start Time Stop Time Status Last Admin Dose Admin Ceftriaxone Sodium 1 gm/ Sodium Chloride 50 ml @ 100 mls/hr 1X ONCE IV 10/16/20 17:00 10/16/20 17:29 DC 10/16/20 17:00 Ceftriaxone Sodium (Rocephin) 1 gm STK-MED ONCE .ROUTE 10/16/20 17:05 10/16/20 17:05 DC Acetaminophen (Tylenol) 650 mg PRN Q4HRS PRN PO MILD PAIN / TEMP > 100.3'F 10/16/20 19:00 11/06/20 12:39 DC 11/06/20 05:46 Buspirone HCl (Buspar) 10 mg TID PO 10/16/20 21:00 10/26/20 17:23 DC 10/26/20 14:44 Calcium Carbonate/ Glycine (Tums) 500 mg PRN Q8HRS PRN PO DYSPEPSIA, 1ST CHOICE 10/16/20 19:00 11/06/20 12:39 DC Diclofenac Sodium (Voltaren) 1 stan BID TP 10/16/20 21:00 11/06/20 12:39 DC 11/06/20 09:00 Divalproex Sodium (Depakote) 250 mg TID PO 10/16/20 21:00 11/06/20 12:39 DC 11/06/20 08:11 Lactase (Lactaid) 3,000 unit TIDBFRMEAL PO 10/17/20 07:30 11/06/20 12:39 DC 11/06/20 08:12 Magnesium Oxide (Magnesium Oxide) 400 mg NOON PO 10/17/20 12:00 11/06/20 12:39 DC 11/05/20 12:00 Metoclopramide HCl (Reglan) 10 mg QIDACHS PO 10/16/20 21:00 10/24/20 19:48 DC 10/24/20 16:12 Pantoprazole Sodium (Protonix) 40 mg QHS PO 10/16/20 21:00 11/06/20 12:39 DC 11/05/20 21:15 Pantoprazole Sodium (Protonix) 40 mg DAILY PO 10/17/20 09:00 UNV Risperidone (RisperDAL) 1 mg QHS PO 10/16/20 21:00 10/18/20 11:47 DC 10/17/20 20:36 Risperidone (RisperDAL) 1.5 mg DAILY PO 10/17/20 09:00 10/23/20 17:54 DC 10/23/20 09:13 Sertraline HCl (Zoloft) 200 mg DAILY PO 10/17/20 09:00 10/24/20 16:49 DC 10/24/20 08:13 Cephalexin HCl (Keflex) 500 mg BID PO 10/16/20 21:00 10/19/20 16:10 DC 10/19/20 08:07 Loperamide HCl (Imodium) 2 mg PRN Q8HRS PRN PO DIARRHEA 10/16/20 19:00 11/06/20 12:39 DC Acetaminophen (Tylenol) 650 mg PRN Q6HRS PRN PO MILD PAIN / TEMP > 100.3'F 10/16/20 19:45 UNV Multi-Ingredient Ointment (Analgesic [place]) 1 stan PRN QID PRN TP MUSCLE PAIN 10/16/20 19:45 11/06/20 12:39 DC Al Hydroxide/Mg Hydroxide (Mylanta Plus Xs) 15 ml PRN AFTMEALHC PRN PO DYSPEPSIA, 2ND CHOICE 10/16/20 19:45 11/06/20 12:39 DC 11/04/20 12:17 Magnesium Hydroxide (Milk Of Magnesia) 2,400 mg PRN QHS PRN PO CONSTIPATION 10/16/20 19:45 11/06/20 12:39 DC 10/21/20 20:48 Lactobacillus Rhamnosus (Culturelle) 1 cap BID PO 10/17/20 21:00 11/06/20 12:39 DC 11/06/20 08:12 Risperidone (RisperDAL) 1.5 mg QHS PO 10/18/20 21:00 10/23/20 21:00 DC 10/23/20 20:10 Vitamin D (Vitamin D3) 50,000 unit WEEKLY PO 10/18/20 15:45 11/06/20 12:39 DC 11/01/20 08:18 Doxycycline Hyclate (Vibra-Tab) 100 mg BID PO 10/19/20 21:00 10/29/20 22:00 DC 10/29/20 20:59 Trimethoprim/ Sulfamethoxazole (Bactrim Ds) 1 tab BID PO 10/19/20 21:00 10/29/20 22:00 DC 10/29/20 21:00 Risperidone (RisperDAL) 3 mg QHS PO 10/24/20 21:00 11/06/20 12:39 DC 11/05/20 21:16 Bupropion HCl (Wellbutrin Xl) 150 mg DAILY PO 10/25/20 09:00 10/26/20 21:00 DC 10/26/20 08:09 Bupropion HCl (Wellbutrin Xl) 300 mg DAILY PO 10/27/20 09:00 10/31/20 16:17 DC 10/31/20 07:58 Trazodone HCl (Desyrel) 50 mg PRN QHS PRN PO insomnia 10/27/20 21:15 11/06/20 12:39 DC 11/05/20 21:23 Bupropion HCl (Wellbutrin Xl) 450 mg DAILY PO 11/01/20 09:00 11/06/20 12:39 DC 11/06/20 08:12 I have reviewed the current psychotropics carefully including drug interactions. Risk benefit ratio favors no change other than as noted in my dictated progress note. Diagnosis: Problems: (1) Schizoaffective disorder, bipolar type (2) Impulse control disorder, unspecified (3) Anxiety disorder, unspecified (4) Bipolar disorder, current episode mixed, severe, with psychotic features VICTORINA BAR MD Nov 06, 2020 22:07
--- NOTE | 2020-11-06 22:54 | DS ---
DATE OF DISCHARGE: 11/06/2020 DISCHARGE SUMMARY/PSYCHIATRIC PROGRESS NOTE This note covers elements not covered in my initial note of 11/06/2020. REASON FOR ADMISSION: Please refer to the admission history for details. Briefly, the patient is a 65-year-old male referred to us from [facility] by his primary care physician/psychiatrist on account of an acute exacerbation of schizoaffective disorder, bipolar type. He was extremely agitated, throwing himself on the floor, physically and verbally aggressive towards staff, refusing cares. He is lying in his urine and feces, agitated. He threw his walker at the staff, was yelling at peers, had poor motivation, smearing feces all over his room. He had failed outpatient psychiatric interventions. Behaviors were deemed dangerous, unmanageable at the facility resulting in this referral. SIGNIFICANT FINDINGS AND CLINICAL COURSE: Following admission, the patient was seen daily individually by myself from a psychiatric standpoint, medical followup with Dr. Angel/Dr. Gamez. The patient was extremely withdrawn, isolative, irritable, and had several incidences of smearing feces in his room and defecating on the floor of his room. He appeared depressed, paranoid, psychotic. Adjustments were made in his psychotropics and he seemed to respond to a combination of Wellbutrin-XL 450 mg a day, Risperdal 3 mg at bedtime, Depakote ER 250 mg t.i.d., though this could be consolidated to a single bedtime dosage later. Valproic acid level was 74, and since this is what he was admitted on, we opted not to change it during this hospitalization. He is also on trazodone 50 mg at bedtime p.r.n. insomnia, may repeat x2. Gradually mood appeared to improve. He was coming out much more to the dayroom, cooperative, pleasant prior to discharge 11/06/2020. REVIEW OF SYSTEMS: Ambulation impaired, in wheelchair, at times with walker. MENTAL STATUS EXAMINATION: Oriented to himself and situation. Speech is coherent. Abstraction fair. Computation impaired. Language function intact. Attention span short. Mood and affect improved. No suicidal or homicidal ideation at discharge. DISCHARGE DIAGNOSES: Schizoaffective disorder, bipolar type, mixed with psychotic features, in partial remission; anxiety disorder, unspecified; impulse control disorder, unspecified. Rest unchanged from admission. DISCHARGE MEDICATIONS: Please refer to the [facility]AD. DISCHARGE INSTRUCTIONS: Outpatient psychiatric and medical followup at the [facility]. Time for discharge day management greater than [address]: Shannan TID: [id number]
--- NOTE | 2020-11-07 08:17 | PDOC ---
Exam Note: Dandy Note: This note is a late entry for 11/05/2020 covers elements not covered in my initial note. Subjective: The patient was seen individually in the evening of 11/05/2020 with Laura MADRIGAL, discussed and reviewed the chart. He slept 6-1/2 hours previous night. Overall the patient has had no change. He has been coming out of the dayroom, much more frequently and was proud of doing this when I pointed it out to him as I met with him in the evening. Review of Systems: Ambulation impaired in wheelchair. No CV, , pulmonary, eye, ENT system symptoms on review. Mental Status Exam: The patient is reasonably oriented. He is very pleasant, verbal, interactive talking about discharge plans this week. Speech is coherent. Abstraction fair. Computation impaired. Language function intact. Attention span short. Mood and affect is withdrawn. No suicidal or homicidal ideation. Laboratory Data: Reviewed. Impression: Schizoaffective disorder bipolar type mixed with psychotic features. Anxiety disorder unspecified. Impulse control disorder unspecified. Plan: No change from initial note. Assessment: Vital Signs/I&O: Vital Signs Date Time Temp Pulse Resp B/P (MAP) Pulse Ox O2 Delivery O2 Flow Rate FiO2 11/06/20 06:00 97.7 72 16 132/76 (94) Room Air 11/05/20 16:09 94 I & O 11/06/20 11/06/20 11/07/20 15:00 23:00 07:00 Intake Total 360 ml Balance 360 ml Current Medications: Meds: Current Medications Medications (Trade) Dose Ordered Sig/Lizette Route PRN Reason Start Time Stop Time Status Last Admin Dose Admin Ceftriaxone Sodium 1 gm/ Sodium Chloride 50 ml @ 100 mls/hr 1X ONCE IV 10/16/20 17:00 10/16/20 17:29 DC 10/16/20 17:00 Ceftriaxone Sodium (Rocephin) 1 gm STK-MED ONCE .ROUTE 10/16/20 17:05 10/16/20 17:05 DC Acetaminophen (Tylenol) 650 mg PRN Q4HRS PRN PO MILD PAIN / TEMP > 100.3'F 10/16/20 19:00 11/06/20 12:39 DC 11/06/20 05:46 Buspirone HCl (Buspar) 10 mg TID PO 10/16/20 21:00 7/9/21 17:23 DC 10/26/20 14:44 Calcium Carbonate/ Glycine (Tums) 500 mg PRN Q8HRS PRN PO DYSPEPSIA, 1ST CHOICE 10/16/20 19:00 11/06/20 12:39 DC Diclofenac Sodium (Voltaren) 1 stan BID TP 10/16/20 21:00 11/06/20 12:39 DC 11/06/20 09:00 Divalproex Sodium (Depakote) 250 mg TID PO 10/16/20 21:00 11/06/20 12:39 DC 11/06/20 08:11 Lactase (Lactaid) 3,000 unit TIDBFRMEAL PO 10/17/20 07:30 11/06/20 12:39 DC 11/06/20 08:12 Magnesium Oxide (Magnesium Oxide) 400 mg NOON PO 10/17/20 12:00 11/06/20 12:39 DC 11/05/20 12:00 Metoclopramide HCl (Reglan) 10 mg QIDACHS PO 10/16/20 21:00 10/24/20 19:48 DC 10/24/20 16:12 Pantoprazole Sodium (Protonix) 40 mg QHS PO 10/16/20 21:00 11/06/20 12:39 DC 11/05/20 21:15 Pantoprazole Sodium (Protonix) 40 mg DAILY PO 10/17/20 09:00 UNV Risperidone (RisperDAL) 1 mg QHS PO 10/16/20 21:00 10/18/20 11:47 DC 10/17/20 20:36 Risperidone (RisperDAL) 1.5 mg DAILY PO 10/17/20 09:00 10/23/20 17:54 DC 10/23/20 09:13 Sertraline HCl (Zoloft) 200 mg DAILY PO 10/17/20 09:00 10/24/20 16:49 DC 10/24/20 08:13 Cephalexin HCl (Keflex) 500 mg BID PO 10/16/20 21:00 10/19/20 16:10 DC 10/19/20 08:07 Loperamide HCl (Imodium) 2 mg PRN Q8HRS PRN PO DIARRHEA 10/16/20 19:00 11/06/20 12:39 DC Acetaminophen (Tylenol) 650 mg PRN Q6HRS PRN PO MILD PAIN / TEMP > 100.3'F 10/16/20 19:45 UNV Multi-Ingredient Ointment (Analgesic [place]) 1 stan PRN QID PRN TP MUSCLE PAIN 10/16/20 19:45 11/06/20 12:39 DC Al Hydroxide/Mg Hydroxide (Mylanta Plus Xs) 15 ml PRN AFTMEALHC PRN PO DYSPEPSIA, 2ND CHOICE 10/16/20 19:45 11/06/20 12:39 DC 11/04/20 12:17 Magnesium Hydroxide (Milk Of Magnesia) 2,400 mg PRN QHS PRN PO CONSTIPATION 10/16/20 19:45 11/06/20 12:39 DC 10/21/20 20:48 Lactobacillus Rhamnosus (Culturelle) 1 cap BID PO 10/17/20 21:00 11/06/20 12:39 DC 11/06/20 08:12 Risperidone (RisperDAL) 1.5 mg QHS PO 10/18/20 21:00 10/23/20 21:00 DC 10/23/20 20:10 Vitamin D (Vitamin D3) 50,000 unit WEEKLY PO 10/18/20 15:45 11/06/20 12:39 DC 11/01/20 08:18 Doxycycline Hyclate (Vibra-Tab) 100 mg BID PO 10/19/20 21:00 10/29/20 22:00 DC 10/29/20 20:59 Trimethoprim/ Sulfamethoxazole (Bactrim Ds) 1 tab BID PO 10/19/20 21:00 10/29/20 22:00 DC 10/29/20 21:00 Risperidone (RisperDAL) 3 mg QHS PO 10/24/20 21:00 11/06/20 12:39 DC 11/05/20 21:16 Bupropion HCl (Wellbutrin Xl) 150 mg DAILY PO 10/25/20 09:00 10/26/20 21:00 DC 10/26/20 08:09 Bupropion HCl (Wellbutrin Xl) 300 mg DAILY PO 10/27/20 09:00 10/31/20 16:17 DC 10/31/20 07:58 Trazodone HCl (Desyrel) 50 mg PRN QHS PRN PO insomnia 10/27/20 21:15 11/06/20 12:39 DC 11/05/20 21:23 Bupropion HCl (Wellbutrin Xl) 450 mg DAILY PO 11/01/20 09:00 11/06/20 12:39 DC 11/06/20 08:12 I have reviewed the current psychotropics carefully including drug interactions. Risk benefit ratio favors no change other than as noted in my dictated progress note. Diagnosis: Problems: (1) Schizoaffective disorder, bipolar type (2) Impulse control disorder, unspecified (3) Anxiety disorder, unspecified (4) Bipolar disorder, current episode mixed, severe, with psychotic features VICTORINA BAR MD Nov 07, 2020 08:17
== END 2020-11-06 12:00 | DRG 885 ==
LOC: ER 15:42 → GEROPSY 18:00
PROVIDERS: ADMIT Psychiatry & Neurology Psychiatry; ATTEND Psychiatry & Neurology Psychiatry
DX: F25.0 Schizoaffective disorder, bipolar type (principal); M86.9 Osteomyelitis, unspecified; N39.0 Urinary tract infection, site not specified; K21.9 Gastro-esophageal reflux disease without esophagitis; E03.9 Hypothyroidism, unspecified; E78.00 Pure hypercholesterolemia, unspecified; E78.5 Hyperlipidemia, unspecified; F41.9 Anxiety disorder, unspecified; F63.9 Impulse disorder, unspecified; I73.9 Peripheral vascular disease, unspecified; L89.212 Pressure ulcer of right hip, stage 2; L89.309 Pressure ulcer of unspecified buttock, unspecified stage; M19.90 Unspecified osteoarthritis, unspecified site; Z02.9 Encounter for administrative examinations, unspecified; Z79.899 Other long term (current) drug therapy; Z89.412 Acquired absence of left great toe; Z91.81 History of falling; Z88.8 Allergy status to other drugs, medicaments and biological substances
CPT/HCPCS: 36415; 72220; 73562; 78315; 80053; 80061; 80164; 81001; 82306; 82607; 82947; 83036; 83540; 83550; 83735; 84436; 84443; 84480; 85025; 85379; 86592; 87077; 87086; 87186; 93005; 96365; A9503; J0696; 97530; 99285-25